=== PATIENT | female | born 1960 | race Two or more races ===

== ENCOUNTER → 2020-10-24 13:20 | Outpatient (BNVA) | payer MEDICARE, MEDICAID, SELFPAY | PROVIDERS: PCP Internal Medicine; Visit Provider Nurse Practitioner | DX: R10.13 Epigastric pain (principal); R19.7 Diarrhea, unspecified; K21.9 Gastro-esophageal reflux disease without esophagitis | CPT/HCPCS: Q3014 ==

== ENCOUNTER 2020-10-31 08:22 | Outpatient (REF) | payer OTHER, SELFPAY ==
[2020-10-31 09:36] LABS: MANUAL DIFF FLAG NO
[2020-10-31 09:47] LABS: Basophils Percent Auto 0.3 % (0-2); Eosinophils Absolute Auto 0.3 X10*3/uL (0.0-0.4); Eosinophils Percent Auto 4.4 % (0-4); Hematocrit 41.7 % (37-47); Hemoglobin 13.6 g/dl (12.0-16.0); Imm Gran Abs Auto 0.01 X10*3/uL (0.00-0.03); Imm Gran Pct Auto 0.2 % (0.0-0.4); Lymphocytes Absolute Auto 2.4 X10*3/uL (1.2-4.9); Lymphocytes Percent Auto 40.2 % (20-40); Mean Corpuscular HGB Conc 32.6 g/dl (31.0-35.0); Mean Corpuscular Hemoglobin 29.9 pg (27.0-33.0); Mean Corpuscular Volume 91.6 fL (80-98); Mean Platelet Volume 10.7 fL (9.4-12.3); Monocytes Absolute Auto 0.4 X10*3/uL (0.1-1.2); Monocytes Percent Auto 6.8 % (2-11); Neutrophils Absolute Auto 2.9 X10*3/uL (2.0-8.3); Neutrophils Percent Auto 48.1 % (45-73); Platelet Count 285 X10*3/uL (160-400); Red Blood Count 4.55 X10*6/uL (4.20-5.50); Red Cell Distribution Width 12.3 % (11.0-16.0); White Blood Count 5.9 X10*3/uL (4.8-10.8)
[2020-10-31 10:08] LABS: Alanine Aminotransferase 12 U/L (0-31); Albumin Level 4.3 g/dL (3.5-5.0); Alkaline Phosphatase 93 U/L (39-117); Anion Gap 14 (12-20); Aspartate Amino Transferase 16 U/L (5-31); Bilirubin Total 0.4 mg/dL (0.0-1.0); Blood Urea Nitrogen 12 mg/dL (9-16); C Reactive Protein 0.38 mg/dL (< or = 0.50); Calcium 9.8 mg/dL (8.4-10.2); Carbon Dioxide 29 mmol/L (22-29); Chloride 104 mmol/L (96-108); Cholesterol 269 mg/dL; Estimated Glomerular Filt Rate > 60; Glucose Random 97 mg/dL (60-115); HDL Cholesterol 69 mg/dL; LDL Cholesterol Calculated 154 mg/dl; Potassium 4.3 mmol/L (3.3-5.1); Sodium 143 mmol/L (135-145); Total Protein 7.9 g/dL (6.5-8.0); Triglycerides 233 mg/dL
[2020-10-31 10:32] LABS: Free T4 (Free Thyroxine) 1.07 ng/dL (0.71-1.85); Thyroid Stimulating Hormone 1.98 uIU/mL (0.32-4.0); Vitamin D 25-OH Total 32.5 ng/mL (>30)
[2020-10-31 10:55] LABS: Folate 13.7 ng/mL (> or = 4.0); Vitamin B12 580 pg/mL (200-900)
[2020-11-01 15:51] LABS: Transglutaminase Ab IgG 2 U/mL; Transglutaminase IgA 1 U/mL
[2020-11-01 17:06] LABS: Gliadin Deamidated IgA Ab 8 Units; Gliadin Deamidated IgG Ab 2 Units
== END 2020-10-31 08:23 | disposition home or self-care (01) ==
LOC: HO.LAB 08:22
PROVIDERS: Absent Provider Nurse Practitioner; PCP Internal Medicine; Visit Provider Internal Medicine
DX: R19.7 Diarrhea, unspecified (principal); F41.9 Anxiety disorder, unspecified; F32.9 Major depressive disorder, single episode, unspecified; E78.00 Pure hypercholesterolemia, unspecified
CPT/HCPCS: 36415; 80053; 80061; 82306; 82607; 82746; 83516; 84439; 84443; 85025; 86140

== ENCOUNTER 2020-11-21 08:12 | Outpatient (REF) | payer OTHER, SELFPAY ==
--- NOTE | ~2020-11-21 | US_ITS ---
EXAMINATION: US ABDOMEN COMPLETE CLINICAL INFORMATION: Epigastric pain. COMPARISON: None TECHNIQUE: Real-time imaging of the abdominal viscera. FINDINGS: PANCREAS: Normal. ABDOMINAL AORTA: The proximal, mid, and distal segments are normal in caliber. INFERIOR VENA CAVA: Visualized portions are normal. LIVER: The liver is normal in size. The liver contour is normal. The liver has increased echogenicity. No focal hepatic lesion. There is no intrahepatic biliary duct dilatation seen. GALLBLADDER: Normal. The gallbladder is physiologically distended without evidence of stones, sludge, polyps, wall thickening or pericholecystic fluid. COMMON BILE DUCT: Normal in caliber measuring 0.5 cm in diameter. RIGHT KIDNEY: Normal. No hydronephrosis. No renal calculi or focal parenchymal lesions. The kidney measures 1.1 cm in maximum dimension. LEFT KIDNEY: Normal. No hydronephrosis. No renal calculi or focal parenchymal lesions. The kidney measures 10.0 cm in maximum dimension. SPLEEN: Normal. The spleen measures 8.0 cm in maximum dimension. FREE FLUID: None. US/US abdomen complete IMPRESSION: Hepatic steatosis without any focal lesion. Unremarkable gallbladder and pancreas. The rest of the abdominal ultrasound is unremarkable.
== END 2020-11-21 08:13 | disposition home or self-care (01) ==
LOC: HO.US 08:12
PROVIDERS: Visit Provider Nurse Practitioner
DX: R10.13 Epigastric pain (principal)
CPT/HCPCS: 76700

== ENCOUNTER 2021-01-01 06:16 | Day surgery (SDC) | payer OTHER, SELFPAY ==
[2020-12-24 15:55] VITALS: BMI 43.4
--- NOTE | 2020-12-27 12:49 | P.CONAN_ITS ---
Documented by User: Kaycee Mary 12/27/20 12:50 HPI - Anesthesia Eval Consult details Narrative: 60yo F for Colonoscopy h/o polysub abuse PMFSH Active Problems Active Problems: All Active Problems (Updated 10/24/20 @ 14:23 by DOMENIC Kilpatrick) Epigastric pain (Acute) Diarrhea (Acute) Shoulder pain, bilateral (Acute) Colon cancer screening (Acute) Annual physical exam (Acute) Overweight (Acute) COPD (chronic obstructive pulmonary disease) (Acute) Anxiety and depression (Acute) GERD (gastroesophageal reflux disease) (Acute) Past Medical History Medical History (Updated 01/01/21 @ 07:33 by Vero Spears) Alcohol abuse Anemia Anxiety and depression Carpal tunnel syndrome Cocaine abuse COPD (chronic obstructive pulmonary disease) CVA (cerebral vascular accident) GERD (gastroesophageal reflux disease) Increased BMI Vitamin D deficiency Family History Family History Father No problems noted. Mother No problems noted. Paternal Grandfather No problems noted. Brother Colon cancer Surgical History Surgical History History of esophagogastroduodenoscopy (EGD) History of total abdominal hysterectomy and bilateral salpingo-oophorectomy Status post dilatation and curettage Social History Social History Alcohol intake: current Alcohol intake frequency: a few times a month Alcohol type: beer Are you DNR?: No Advance Directives: No Advance Directives Information Provided: No Advance Directives on File: No Meds Allergies Allergy/AdvReac Type Severity Reaction Status Date / Time pravastatin Allergy Unknown Unknown Verified 10/24/20 13:23 ENVIRONMENTAL Allergy Unknown ASTHMA Uncoded 04/19/20 15:30 Home Medications Medication Instructions Recorded Confirmed Last Taken Type clonazepam 1 mg tablet 1 mg PO DAILY 09/27/20 12/24/20 Unknown History escitalopram oxalate 10 mg tablet 10 mg PO DAILY 09/27/20 12/24/20 Unknown History trazodone 100 mg tablet 100 mg PO BEDTIME PRN 09/27/20 12/24/20 Unknown History bupropion HCl 100 mg PO DAILY 12/24/20 12/24/20 Unknown History Exam Exam Date and Time: December 27, 2020 1249 Height,Weight and Vital Signs: Height 5 ft 6 in Weight 122.016 kg Pertinent Lab Results Pertinent Lab Results: Laboratory Tests 10/31/20 10/31/20 08:45 08:45 WBC 5.9 Hgb 13.6 Hct 41.7 Plt Count 285 Sodium 143 Potassium 4.3 Chloride 104 Carbon Dioxide 29 BUN 12 Creatinine 0.83 Assessment and Plan Assessment Anesthesia Assessment: Chart Reviewed Documented by User: Vero Spears 01/01/21 07:36 [facility] Past Medical History Medical History (Updated 01/01/21 @ 07:33 by Vero Spears) Alcohol abuse Anemia Anxiety and depression Carpal tunnel syndrome Cocaine abuse COPD (chronic obstructive pulmonary disease) CVA (cerebral vascular accident) GERD (gastroesophageal reflux disease) Increased BMI Vitamin D deficiency Family History Family History Father No problems noted. Mother No problems noted. Paternal Grandfather No problems noted. Brother Colon cancer Family history of problems with anesthesia: No Surgical History Surgical History History of esophagogastroduodenoscopy (EGD) History of total abdominal hysterectomy and bilateral salpingo-oophorectomy Status post dilatation and curettage History of Problems with Anesthesia: No Social History Social History Alcohol intake: current Alcohol intake frequency: a few times a month Alcohol type: beer Are you DNR?: No Advance Directives: No Advance Directives Information Provided: No Advance Directives on File: No Meds Allergies Allergy/AdvReac Type Severity Reaction Status Date / Time pravastatin Allergy Unknown Unknown Verified 10/24/20 13:23 ENVIRONMENTAL Allergy Unknown ASTHMA Uncoded 04/19/20 15:30 Home Medications Medication Instructions Recorded Confirmed Last Taken Type clonazepam 1 mg tablet 1 mg PO DAILY 09/27/20 12/24/20 Unknown History escitalopram oxalate 10 mg tablet 10 mg PO DAILY 09/27/20 12/24/20 Unknown History trazodone 100 mg tablet 100 mg PO BEDTIME PRN 09/27/20 12/24/20 Unknown History bupropion HCl 100 mg PO DAILY 12/24/20 12/24/20 Unknown History Exam Height,Weight and Vital Signs: Vital Signs Temp Pulse Resp BP Pulse Ox 01/01/21 06:38 97.9 F 84 16 116/67 96 Pertinent Lab Results Pertinent Lab Results: Laboratory Results - last 24 hr 01/01/21 06:22 Urine Opiates Screen Not Detected Ur Barbiturates Screen Not Detected Ur Phencyclidine Scrn Not Detected Ur Amphetamines Screen Not Detected U Benzodiazepines Scrn POSITIVE H Urine Cocaine Screen Not Detected U Marijuana (THC) Screen Not Detected Airway Mallampati Class: III TM Dist: >3cm Neck ROM: Full Heart: RRR Lungs: CTAB Assessment and Plan Assessment Anesthesia Assessment: Anesthesia Plan Discussed and Chart Reviewed Final Anesthetic Review NPO: Yes ASA Class: III Final Preanesthetic Review: No Changes in Pt Med Stat, Meds/Allgs Chart Reviewed, Consent Obtained/Reviewed and Anes Risks/Benef Reviewed Patient Risk: Intermediate Procedure Risk: Low Assessment/Block/Sedation in SS: Assess/Block/Sedation-SS Anesthetic Plan Anesthetic Plan: MAC: Disposition: Standard PACU
[2021-01-01 06:38] VITALS: BP 116/67; PULSE 84; RESP 16; TEMP 36.6; O2SAT 96
[2021-01-01] MEDS: Lactated Ringers 1,000 ML 100 ML IVCONT (06:46)
--- NOTE | 2021-01-01 06:48 | PC.NURSE ---
Patient arrived at [facility] wearing two gold necklaces with pendants and two sets of earrings, gold hoops and kellie studs. All jewelry removed and placed in labeled patient bag.
[2021-01-01 07:01] LABS: Amphetamine Screen Urine Not Detected (Not Detect); Barbiturates, Urine Not Detected (Not Detect); Benzodiazepines Screen Urine POSITIVE (Not Detect); Cannabinoid Screen Urine Not Detected (Not Detect); Cocaine Screen Urine Not Detected (Not Detect); Opiate Screen Urine Not Detected (Not Detect); Phencyclidine Screen Urine Not Detected (Not Detect)
--- NOTE | 2021-01-01 07:10 | W.PM.OPN ---
Operative Note Operative Note Date of Service: 01/01/21 Narrative: Pre-op diagnosis: Cancer screening, postprandial diarrhea, abdominal pain Post-op diagnosis: other (Diverticulosis) Procedure: COLONOSCOPY TILL CECUM WITH BIOPSIES Consent: Indications for the procedure and potential complications of bleeding, perforation, reaction to medications and missed diagnosis were discussed with the patient and informed consent was obtained. Instrument: Olympus PCF H 190 L variable stiffness pediatric colonoscope Monitoring: Vital signs and clinical assessment, intermittent blood pressure monitoring, continuous EKG monitoring, Pulse oximetry and Carbon Dioxide monitoring were done throughout the procedure. Colon withdrawl time was 15 minutes. Procedure: The patient was placed in the left lateral decubitis position and pre-procedure medications were administered. After a digital rectal examination of the ano-rectum, the video colonoscope was inserted into the rectum and advanced through the colon to the cecum. The colonoscope was slowly withdrawn in a retrograde panoramic fashion and the colon mucosa was carefully examined including a retroflexed view of the rectum. Findings and interventions are described below. Procedure Difficulty: Without difficulty Findings: Terminal Ileum: Distal 6-7 cm was examined and appeared normal Cecum: Normal Ascending Colon: Normal Transverse Colon: Normal Descending Colon: Moderate diverticulosis Sigmoid Colon: Moderate diverticulosis Rectum: Normal Ano-rectum: Perianal skin tags Colon preparation: Excellent after some irrigation Impression and Post Procedure Diagnosis: Colonoscopy Findings: No polyps were detected. Random biopsies were obtained from the colon to check for microscopic colitis Moderate diverticulosis seen in the left colon Plan: Await pathology results Patient has an appointment on 01/21/21 in the GI Clinic with Helga Varghese NP. Repeat Colonoscopy interval based on path results - in 10 years if biopsies are normal. Above findings were reviewed with the patient and diverticulosis handout was given in the discharge area Surgeon: Vivienne Benson MD Anesthesia: MAC (Minerva Orozco CRNA) Was an Steward/Stewardess Chief Cargo Vessel used for this Procedure?: Yes Steward/Stewardess Chief Cargo Vessel: Mauri Pedro Estimated blood loss (mL): 0 Pathology: other (A- RANDOM COLON BXS R/O MICROSCOPIC COLITIS) Condition: stable Disposition: PACU
--- NOTE | 2021-01-01 07:10 | MHC.SHP ---
Pre-Procedural Eval Section A The patient is an INPATIENT: No The History & Physical has been completed within 30 days and I have reviewed it.: No Section B Chief Complaint: Screening Details of Present Illness: Colon cancer screening, abdominal pain, postprandial diarrhea Relevant Family History (Specify if Yes): No Relevant Social History: None Present Medications: see Short Stay Collaborative assessment Medical History: Significant History (Alcohol abuse Anemia Anxiety and depression Carpal tunnel syndrome Cocaine abuse COPD (chronic obstructive pulmonary disease) CVA (cerebral vascular accident) GERD (gastroesophageal reflux disease) Vitamin D deficiency) History of Previous Operations: Relevant previous surgery/procedure and date(s) (History of esophagogastroduodenoscopy (EGD) History of total abdominal hysterectomy and bilateral salpingo-oophorectomy Status post dilatation and curettage) Allergies: Allergies Allergy/AdvReac Type Severity Reaction Status Date / Time pravastatin Allergy Unknown Unknown Verified 10/24/20 13:23 ENVIRONMENTAL Allergy Unknown ASTHMA Uncoded 04/19/20 15:30 Review of Systems Sugical H&P ROS: Negative: Constitution, Cardiovascular and Respiratory and Yes, Specify: Gastrointestinal (abd pain and diarrhea) Exam Surgical H&P Exam: Normal: Heart, Normal: Lungs, Normal: Extremities and Normal: Abdomen Plan Diagnosis/Plan: Unchanged I have reviewed the history and physical and performed a pertinent physical examination on my patient. No changes have occurred unless specified.
[2021-01-01 08:06] VITALS: BP 90/59; PULSE 90; RESP 16; TEMP 36.2; O2SAT 96
[2021-01-01 08:21] VITALS: BP 100/60; PULSE 81; RESP 18; TEMP 36.2; O2SAT 96
--- NOTE | 2021-01-01 08:47 | PC.NURSE ---
Discharge instructions provided with assistance of [facility] Business Operations Specialist
== END 2021-01-01 09:05 | disposition home or self-care (01) ==
PROVIDERS: Nurse Practitioner; PCP Internal Medicine; Visit Provider Internal Medicine Gastroenterology
PROC: 0DJD8ZZ Inspection of Lower Intestinal Tract, Via Natural or Artificial Opening Endoscopic (ICD-10-PCS; CPT 45378; principal; 2021-01-01 07:30)
DX: Z12.11 Encounter for screening for malignant neoplasm of colon (principal); K21.9 Gastro-esophageal reflux disease without esophagitis; K57.30 Diverticulosis of large intestine without perforation or abscess without bleeding; D50.9 Iron deficiency anemia, unspecified; F14.10 Cocaine abuse, uncomplicated; F10.10 Alcohol abuse, uncomplicated; F32.9 Major depressive disorder, single episode, unspecified; J44.9 Chronic obstructive pulmonary disease, unspecified; E55.9 Vitamin D deficiency, unspecified; I69.998 Other sequelae following unspecified cerebrovascular disease; Z79.899 Other long term (current) drug therapy
CPT/HCPCS: 45380; 80307; 88305

== ENCOUNTER → 2021-01-21 09:51 | Outpatient (BNVA) | payer OTHER, SELFPAY | PROVIDERS: Visit Provider Nurse Practitioner | DX: R10.13 Epigastric pain (principal); Z12.11 Encounter for screening for malignant neoplasm of colon; K21.9 Gastro-esophageal reflux disease without esophagitis; R19.7 Diarrhea, unspecified; R63.8 Other symptoms and signs concerning food and fluid intake | CPT/HCPCS: Q3014 ==

== ENCOUNTER 2021-03-14 11:49 | Outpatient (REF) | payer OTHER, SELFPAY ==
--- NOTE | ~2021-03-14 | MM_ITS ---
EXAMINATION: MM SCREENING DIGITAL BREAST TOMOSYNTHESIS, BILATERAL CLINICAL INFORMATION: Screening. Asymptomatic. The lifetime risk of breast cancer based on the Tyrer-Cuzick Model is 6%. COMPARISON: Mammography: 09/01/2019, 07/22/2018, 10/08/2016 TECHNIQUE: Digital breast tomosynthesis is performed in both the craniocaudal and mediolateral oblique views along with computer-aided detection (CAD). Synthesized 2D images are generated from the tomosynthesis. FINDINGS: There are scattered areas of fibroglandular density (ACR BI-RADS breast composition Category b). There are no significant masses, abnormal calcifications, or other abnormalities. There is no developing density. There is a stable circumscribed nodule posterior upper outer right breast. Skin contours are smooth. No significant changes. MM/MM tomosynthesis screening BI IMPRESSION: No mammographic evidence of malignancy. ASSESSMENT: BI-RADS 2: Benign RECOMMENDATION: Routine annual mammography screening. This patient's information was entered into a reminder system with a target due date for their next mammogram.
== END 2021-03-14 11:50 | disposition home or self-care (01) ==
LOC: HO.MAMMO 11:49
PROVIDERS: Visit Provider Internal Medicine
DX: Z12.31 Encounter for screening mammogram for malignant neoplasm of breast (principal)
CPT/HCPCS: 77063; 77067

== ENCOUNTER → 2021-03-25 08:39 | Outpatient (BNVA) | payer OTHER, SELFPAY | PROVIDERS: Visit Provider Nurse Practitioner | DX: K21.9 Gastro-esophageal reflux disease without esophagitis (principal); R63.8 Other symptoms and signs concerning food and fluid intake; R19.7 Diarrhea, unspecified | CPT/HCPCS: Q3014 ==

== ENCOUNTER 2021-05-07 09:18 | Emergency (ER) | payer OTHER, SELFPAY ==
--- NOTE | ~2021-05-07 | CT_ITS ---
EXAMINATION: CT BRAIN, CT CERVICAL SPINE AND CT FACIAL BONES WITHOUT CONTRAST. CLINICAL INFORMATION: Headache with fall and LOC. COMPARISON: None TECHNIQUE: 5 mm thin axial and reformatted 2 mm thin sagittal coronal images of brain were obtained. Axial 3 mm thin and reformatted 2 minutes thin sagittal coronal images of cervical spine were obtained. Lastly axial 1.5 minutes thin and reformatted 1.5 minutes thin sagittal coronal images of facial bones were obtained. DLP [id number] FINDINGS: Brain: There is no acute intra-axial, extra-axial bleed,, collection or midline shift. There is no acute infarction evolution. There is no edema. The lateral ventricles are symmetrical in size and configuration and normal. The barros to white matter differentiation is maintained normal. Bone windows reveal no calvarial abnormality. There is no scalp soft tissue abnormality. Bilateral paranasal sinuses and mastoid air cells are well-aerated. Cervical spine: The vertebral heights, alignment and disc heights are normal. There is mild superior spurring at the C1-C2 alignment. The craniovertebral junction is normal. No visible acute fracture, dislocation or subluxation seen. The prevertebral and the paravertebral soft tissues are normal. Bilateral parotid and submandibular glands are symmetric and normal. There is widely patent. Bilateral shotty cervical lymph nodes are seen. The lung apices are clear. Facial bones: There is no maxillofacial, nasal or mandibular fracture. The paranasal sinuses are clear. The bony sinus medellin are intact. The cribriform plate and lamina papyracea are intact. There is mild deviation nasal septum to the right but symmetrical turbinates. The airway is widely patent. The bony orbits, optic globe and periorbital soft tissues are normal. The mandible is intact. Bilateral TM joints are symmetrical and normal. CT/CT cervical spine wo con IMPRESSION: No acute intracranial process seen. No evidence of fracture or dislocation cervical spine. Mild straightening of cervical lordosis likely spasm. Mild degenerative spurring C1-C2 alignment. No maxillofacial, nasal or mandibular fractures seen. Mild deviated nasal septum to the right.
[2021-05-07 10:08] VITALS: BP 141/79; PULSE 65; RESP 16; TEMP 36.8; O2SAT 100; BMI 27.2
--- NOTE | 2021-05-07 10:34 | ECG_ITS ---
Test Reason : DIZZ Blood Pressure : / mmHG Vent. Rate : 061 BPM Atrial Rate : 061 BPM P-R Int : 120 ms QRS Dur : 096 ms QT Int : 414 ms P-R-T Axes : 055 025 046 degrees QTc Int : 416 ms Normal sinus rhythm Normal ECG When compared with ECG of 21-JUN-2017 13:57, QT has shortened Referred By: Ara Khan Electronically Signed By:KEYA WELDON
--- NOTE | 2021-05-07 10:35 | ED_ITS ---
HPI - General Adult General Chief complaint: Syncope Stated complaint: neck pain Time Seen by Provider: 05/07/21 09:33 Source: patient Mode of arrival: ambulatory Limitations: no limitations History of Present Illness HPI narrative: Patient comes emergency room complaining of a recent fall that occurred 4 days ago. Patient states that she was sitting in the bed, she leaned over to grab a shoe and she fell forward. Patient states that she face planted, loss consciousness, patient was alone at home. Patient could not come before because she did have anyone to bring her to the emergency room. That after the fall, she has been having dizziness. Patient complaining of paresthesias radiating down her left arm, but this started approximately a month ago. Patient denies chest pain or shortness of breath Related Data Home Medications Medication Instructions Recorded Confirmed clonazepam 1 mg tablet (Klonopin) 1 mg PO DAILY 09/27/20 12/24/20 trazodone 100 mg tablet 100 mg PO BEDTIME PRN 09/27/20 12/24/20 Previous Rx's Medication Instructions Recorded omeprazole 20 mg capsule,delayed 20 mg PO DAILY 30 Days #30 cap 01/21/21 release meloxicam 7.5 mg tablet 7.5 mg PO DAILY #30 tab 03/27/21 Allergies Allergy/AdvReac Type Severity Reaction Status Date / Time pravastatin Allergy Unknown Unknown Verified 03/27/21 13:14 ENVIRONMENTAL Allergy Unknown ASTHMA Uncoded 04/19/20 15:30 Review of Systems Review of Systems: Constitutional : No Weight loss, No Fever, No Chills, No N ight Sweats, No Fatigue, No Malaise ENT/Mouth : No Hearing loss, No Ear Pain, No Nasal Congestion, No Sinus Pain, No Hoarseness, No sore throat, No Rhinorrhea, No Swallowing Difficulty Eyes: No Eye Pain, No Swelling, No Redness, No Foreign Body, No Discharge, No Vision Changes Cardiovascular : No Chest Pain, No SOB, No Dyspnea on Exertion, No Orthopnea, No Edema, No Palpitations Respiratory : No Cough, No Sputum, No Wheezing, No Smoke Exposure, No Dyspnea Gastrointestinal : No Nausea, No Vomiting, No Diarrhea, No Constipation, No abdominal Pain, No Hematochezia, No Melena Genitourinary : no irregular bleeding, No Dysuria, No Urinary Frequency, No Hematuria, No Urinary Incontinence, No Urgency, No Flank Pain, No Urinary Flow Changes, No Hesitancy Musculoskeletal : No joint pain, No Myalgias, No Joint Swelling Skin multiple ecchymoses due to fall Neuro : No Weakness, No Numbness, left arm intermittent paresthesias, 1 episode of loss of consciousness after falling Psych : No Anxiety/Panic, No Depression, No SI/HI/AH/VH, No Social Issues, Heme/Lymph: No Bruising, No Bleeding,No Lymphadenopathy Endocrine : No Polyuria, No Polydipsia, No Temperature Intolerance [facility] Past Medical History Medical History Alcohol abuse Anemia Anxiety and depression Carpal tunnel syndrome Cocaine abuse COPD (chronic obstructive pulmonary disease) CVA (cerebral vascular accident) Epigastric pain GERD (gastroesophageal reflux disease) Increased BMI Vitamin D deficiency Surgical History History of esophagogastroduodenoscopy (EGD) History of total abdominal hysterectomy and bilateral salpingo-oophorectomy Status post dilatation and curettage Family History Family History Father No problems noted. Mother No problems noted. Paternal Grandfather No problems noted. Brother Colon cancer Social History Social History Housing: Apartment Alcohol intake: current Alcohol intake frequency: a few times a month Alcohol type: beer Patient Tobacco Use Status: Never used Tobacco Tobacco use type: Cigarette e-Cigarette/Vaping Use: Never Used Second Hand Smoke Exposure: No Advance Directives: No Patient : No service: No Current occupational status: unemployed Physical Exam Vital Signs: Vital Signs: Last Vital Signs Temp 98.0 F 05/07/21 12:00 Pulse 60 05/07/21 12:00 Resp 17 05/07/21 12:00 BP 137/75 05/07/21 12:00 Pulse Ox 99 05/07/21 12:08 Body Mass Index 27.2 Const: Other: Appearance: Alert. Oriented X3. No acute distress. Eyes: Pupils equal, round and reactive to light. ENT: Pharynx normal. Neck: Normal inspection. Neck supple. No lymph nodes noted. No crepitus, pain to palpation on the left side of the neck, normal range of motion with flexion and extension CVS: Normal heart rate and rhythm. Pulses normal. Normal S1 and S2 Respiratory: No respiratory distress. Breath sounds normal. No Wheezing. No rales Abdomen: Soft and nontender. No rigidity. No distention. good BS x4 Skin: Skin warm and dry. Multiple ecchymoses to the right side of the face, healing, no lacerations Extremities: No lower extremity edema. Normal strength 5/5 in all extremities, No Lacerations. No Rash Neuro: Oriented X 3. No motor deficit. No sensory deficit. Moving all extermities. No slurred speech. Course Course Course Narrative: I discussed the CT scan with the patient, no acute fractures. I discussed with the patient that if she continues having paresthesias in her left arm which has been ongoing for about a month now, she will likely need an MRI of the cervical spine, which can be done through her primary care physician. Medical Decision Making Lab Data Result diagrams: 05/07/21 11:08 05/07/21 11:08 Labs: Lab Results 05/07/21 05/07/21 05/07/21 Range/Units 11:08 11:08 11:08 WBC 7.3 (4.8-10.8) X10*3/uL RBC 3.97 L (4.20-5.50) X10*6/uL Hgb 12.2 (12.0-16.0) g/dl Hct 36.0 L (37-47) % MCV 90.7 (80-98) fL MCH 30.7 (27.0-33.0) pg MCHC 33.9 (31.0-35.0) g/dl RDW 12.5 (11.0-16.0) % Plt Count 227 (160-400) X10*3/uL MPV 10.3 (9.4-12.3) fL Immature Gran % (Auto) 0.1 (0.0-0.4) % Neut % (Auto) 54.0 (45-73) % Lymph % (Auto) 37.7 (20-40) % Anderson % (Auto) 5.8 (2-11) % Eos % (Auto) 2.1 (0-4) % Baso % (Auto) 0.3 (0-2) % Lymph # (Auto) 2.7 (1.2-4.9) X10*3/uL Anderson # (Auto) 0.4 (0.1-1.2) X10*3/uL Eos # (Auto) 0.2 (0.0-0.4) X10*3/uL Baso # (Auto) 0.0 (0.0-0.2) X10*3/uL Abs Immat Gran (auto) 0.01 (0.00-0.03) X10*3/uL Absolute Neuts (auto) 3.9 (2.0-8.3) X10*3/uL Absolute Nucleated RBC 0.000 (0.0-0.012) X10*3/uL Nucleated RBC % (auto) 0.0 (0.0-0.2) /100WBC Sodium 140 (135-145) mmol/L Potassium 4.3 (3.3-5.1) mmol/L Chloride 105 (96-108) mmol/L Carbon Dioxide 28 (22-29) mmol/L Anion Gap 11 L (12-20) BUN 13 (9-16) mg/dL Creatinine 0.81 (0.5-1.4) mg/dL Estim Creat Clear Calc 74.3 Estimated GFR > 60 Random Glucose 102 (60-115) mg/dL Calcium 9.6 (8.4-10.2) mg/dL Troponin I High Sens < 3.5 (<3.5-17.0) ng/L Urine Color Urine Appearance Urine pH (5.0-8.0) Ur Specific [place] (1.005-1.025) Urine Protein (NEG-TRACE) MG/DL Urine Glucose (UA) (NEG) MG/DL Urine Ketones (NEG) MG/DL Urine Blood (NEG) Urine Nitrite (NEG) Ur Leukocyte Esterase (NEG) Urine Opiates Screen (Not Detect) Urine Fentanyl Screen (Not Detect) Ur Barbiturates Screen (Not Detect) Ur Phencyclidine Scrn (Not Detect) Ur Amphetamines Screen (Not Detect) U Benzodiazepines Scrn (Not Detect) Urine Cocaine Screen (Not Detect) U Marijuana (THC) Screen (Not Detect) Ethyl Alcohol mg/dL 05/07/21 05/07/21 05/07/21 Range/Units 11:08 11:08 11:08 WBC (4.8-10.8) X10*3/uL RBC (4.20-5.50) X10*6/uL Hgb (12.0-16.0) g/dl Hct (37-47) % MCV (80-98) fL MCH (27.0-33.0) pg MCHC (31.0-35.0) g/dl RDW (11.0-16.0) % Plt Count (160-400) X10*3/uL MPV (9.4-12.3) fL Immature Gran % (Auto) (0.0-0.4) % Neut % (Auto) (45-73) % Lymph % (Auto) (20-40) % Anderson % (Auto) (2-11) % Eos % (Auto) (0-4) % Baso % (Auto) (0-2) % Lymph # (Auto) (1.2-4.9) X10*3/uL Anderson # (Auto) (0.1-1.2) X10*3/uL Eos # (Auto) (0.0-0.4) X10*3/uL Baso # (Auto) (0.0-0.2) X10*3/uL Abs Immat Gran (auto) (0.00-0.03) X10*3/uL Absolute Neuts (auto) (2.0-8.3) X10*3/uL Absolute Nucleated RBC (0.0-0.012) X10*3/uL Nucleated RBC % (auto) (0.0-0.2) /100WBC Sodium (135-145) mmol/L Potassium (3.3-5.1) mmol/L Chloride (96-108) mmol/L Carbon Dioxide (22-29) mmol/L Anion Gap (12-20) BUN (9-16) mg/dL Creatinine (0.5-1.4) mg/dL Estim Creat Clear Calc Estimated GFR Random Glucose (60-115) mg/dL Calcium (8.4-10.2) mg/dL Troponin I High Sens (<3.5-17.0) ng/L Urine Color YELLOW Urine Appearance CLEAR Urine pH 6.0 (5.0-8.0) Ur Specific [place] >= 1.030 H (1.005-1.025) Urine Protein NEG (NEG-TRACE) MG/DL Urine Glucose (UA) NEG (NEG) MG/DL Urine Ketones NEG (NEG) MG/DL Urine Blood NEG (NEG) Urine Nitrite NEG (NEG) Ur Leukocyte Esterase NEG (NEG) Urine Opiates Screen Not Detected (Not Detect) Urine Fentanyl Screen POSITIVE H (Not Detect) Ur Barbiturates Screen Not Detected (Not Detect) Ur Phencyclidine Scrn Not Detected (Not Detect) Ur Amphetamines Screen Not Detected (Not Detect) U Benzodiazepines Scrn Not Detected (Not Detect) Urine Cocaine Screen POSITIVE H (Not Detect) U Marijuana (THC) Screen Not Detected (Not Detect) Ethyl Alcohol < 10 mg/dL Imaging Data CT scan of brain, cervical spine and facial bones: Radiologist's impression: FINDINGS: Brain: There is no acute intra-axial, extra-axial bleed,, collection or midline shift. There is no acute infarction evolution. There is no edema. The lateral ventricles are symmetrical in size and configuration and normal. The barros to white matter differentiation is maintained normal. Bone windows reveal no calvarial abnormality. There is no scalp soft tissue abnormality. Bilateral paranasal sinuses and mastoid air cells are well-aerated. Cervical spine: The vertebral heights, alignment and disc heights are normal. There is mild superior spurring at the C1-C2 alignment. The craniovertebral junction is normal. No visible acute fracture, dislocation or subluxation seen. The prevertebral and the paravertebral soft tissues are normal. Bilateral parotid and submandibular glands are symmetric and normal. There is widely patent. Bilateral shotty cervical lymph nodes are seen. The lung apices are clear. Facial bones: There is no maxillofacial, nasal or mandibular fracture. The paranasal sinuses are clear. The bony sinus medellin are intact. The cribriform plate and lamina papyracea are intact. There is mild deviation nasal septum to the right but symmetrical turbinates. The airway is widely patent. The bony orbits, optic globe and periorbital soft tissues are normal. The mandible is intact. Bilateral TM joints are symmetrical and normal. CT/CT head/brain wo con IMPRESSION: No acute intracranial process seen. ? No evidence of fracture or dislocation cervical spine. Mild straightening of cervical lordosis likely spasm. Mild degenerative spurring C1-C2 alignment. ? No maxillofacial, nasal or mandibular fractures seen. Mild deviated nasal septum to the right.? ECG Data Attestation: I personally reviewed and interpreted this ECG as follows: (Normal sinus, heart rate 61, no ST segment depression or elevation, no T-wave inversion, QTC 416) Discharge Plan Discharge Clinical Impression: Falls, Substance abuse, Contusion of face Patient Disposition: Home, Self-Care Instructions: Fall Prevention for Older Adults (ED), Polysubstance Abuse (ED) Additional Instructions: Please follow-up with your primary care physician tomorrow. If you have any worsening or new symptoms, please return to the emergency room or call 911 Prescriptions: No Action clonazepam [Klonopin] 1 mg tablet 1 mg PO DAILY RF: 0 trazodone 100 mg tablet 100 mg PO BEDTIME PRN (Reason: Insomnia) RF: 0 meloxicam 7.5 mg tablet 7.5 mg PO DAILY Qty: 30 RF: 2 omeprazole 20 mg capsule,delayed release(DR/EC) 20 mg PO DAILY 30 Days Qty: 30 RF: 6
[2021-05-07] MEDS: diazePAM 2 MG TABLET PO (11:06)
[2021-05-07 11:18] LABS: MANUAL DIFF FLAG NO
[2021-05-07 11:19] LABS: Basophils Percent Auto 0.3 % (0-2); Eosinophils Absolute Auto 0.2 X10*3/uL (0.0-0.4); Eosinophils Percent Auto 2.1 % (0-4); Hemoglobin 12.2 g/dl (12.0-16.0); Imm Gran Abs Auto 0.01 X10*3/uL (0.00-0.03); Imm Gran Pct Auto 0.1 % (0.0-0.4); Lymphocytes Absolute Auto 2.7 X10*3/uL (1.2-4.9); Lymphocytes Percent Auto 37.7 % (20-40); Mean Corpuscular HGB Conc 33.9 g/dl (31.0-35.0); Mean Corpuscular Hemoglobin 30.7 pg (27.0-33.0); Mean Corpuscular Volume 90.7 fL (80-98); Mean Platelet Volume 10.3 fL (9.4-12.3); Monocytes Absolute Auto 0.4 X10*3/uL (0.1-1.2); Monocytes Percent Auto 5.8 % (2-11); Neutrophils Absolute Auto 3.9 X10*3/uL (2.0-8.3); Platelet Count 227 X10*3/uL (160-400); Red Blood Count 3.97 X10*6/uL (4.20-5.50); Red Cell Distribution Width 12.5 % (11.0-16.0); White Blood Count 7.3 X10*3/uL (4.8-10.8)
[2021-05-07 11:22] LABS: Appearance Urine CLEAR; Color Urine YELLOW; Glucose Urine UA NEG (NEG); Leukocyte Esterase Urine NEG (NEG); Nitrite Urine NEG (NEG); Specific Gravity - Urine >= 1.030 (1.005-1.025); Urine Blood NEG (NEG); Urine Ketones NEG (NEG); Urine Protein NEG (NEG-TRACE)
[2021-05-07 11:32] LABS: Ethanol < 10 mg/dL
[2021-05-07 11:34] LABS: Anion Gap 11 (12-20); Blood Urea Nitrogen 13 mg/dL (9-16); Calcium 9.6 mg/dL (8.4-10.2); Carbon Dioxide 28 mmol/L (22-29); Chloride 105 mmol/L (96-108); Creatinine Clr Calc Pharmacy 74.3; Estimated Glomerular Filt Rate > 60; Glucose Random 102 mg/dL (60-115); Potassium 4.3 mmol/L (3.3-5.1); Sodium 140 mmol/L (135-145)
[2021-05-07 11:35] LABS: Amphetamine Screen Urine Not Detected (Not Detect); Barbiturates, Urine Not Detected (Not Detect); Benzodiazepines Screen Urine Not Detected (Not Detect); Cannabinoid Screen Urine Not Detected (Not Detect); Cocaine Screen Urine POSITIVE (Not Detect); Fentanyl, urine POSITIVE (Not Detect); Opiate Screen Urine Not Detected (Not Detect); Phencyclidine Screen Urine Not Detected (Not Detect)
[2021-05-07 11:40] LABS: Troponin-I High Sensitivity < 3.5 ng/L (<3.5-17.0)
[2021-05-07 12:00] VITALS: BP 137/75; PULSE 60; RESP 17; TEMP 36.7; O2SAT 99
--- NOTE | 2021-05-07 12:07 | PC.NURSE ---
patient sleeping, wakes to verbal stimulus, c/o 8/10 head and neck pain, vitals stable, daughter at bedside, will continue to monitor.
[2021-05-07 12:08] VITALS: O2SAT 99
== END 2021-05-07 12:48 | disposition home or self-care (01) ==
PROVIDERS: Emergency Provider Emergency Medicine; PCP Internal Medicine
DX: S00.83XA Contusion of other part of head, initial encounter (principal); R55 Syncope and collapse; M54.2 Cervicalgia; M79.602 Pain in left arm; F10.10 Alcohol abuse, uncomplicated; F17.210 Nicotine dependence, cigarettes, uncomplicated; Y90.0 Blood alcohol level of less than 20 mg/100 ml; W18.30XA Fall on same level, unspecified, initial encounter; Y93.9 Activity, unspecified; Y92.9 Unspecified place or not applicable; Y99.9 Unspecified external cause status; Z71.6 Tobacco abuse counseling; Z79.899 Other long term (current) drug therapy
CPT/HCPCS: 36415; 70450; 70486; 72125; 80048; 80307; 81003; 82077; 84484; 85025; 93005; 99284

== ENCOUNTER 2021-06-20 09:10 | Outpatient (REF) | payer OTHER, SELFPAY ==
[2021-06-20 10:07] LABS: Alanine Aminotransferase 15 U/L (0-31); Albumin Level 4.3 g/dL (3.5-5.0); Alkaline Phosphatase 91 U/L (39-117); Anion Gap 12 (12-20); Aspartate Amino Transferase 20 U/L (5-31); Bilirubin Total 0.3 mg/dL (0.0-1.0); Blood Urea Nitrogen 14 mg/dL (9-16); Calcium 9.8 mg/dL (8.4-10.2); Carbon Dioxide 29 mmol/L (22-29); Chloride 102 mmol/L (96-108); Cholesterol 267 mg/dL; Estimated Glomerular Filt Rate > 60; Glucose Random 131 mg/dL (60-115); HDL Cholesterol 76 mg/dL; LDL Cholesterol Calculated 151 mg/dl; Potassium 4.6 mmol/L (3.3-5.1); Sodium 138 mmol/L (135-145); Total Protein 7.8 g/dL (6.5-8.0); Triglycerides 203 mg/dL
== END 2021-06-20 09:11 | disposition home or self-care (01) ==
LOC: HO.LAB 09:10
PROVIDERS: PCP Internal Medicine; Visit Provider Internal Medicine
DX: E78.00 Pure hypercholesterolemia, unspecified (principal)
CPT/HCPCS: 36415; 80053; 80061

== ENCOUNTER → 2021-08-22 08:46 | Outpatient (BNVA) | payer OTHER, SELFPAY | PROVIDERS: PCP Internal Medicine; Referring Provider Internal Medicine; Visit Provider Nurse Practitioner | DX: Z12.11 Encounter for screening for malignant neoplasm of colon (principal); K21.9 Gastro-esophageal reflux disease without esophagitis; R19.7 Diarrhea, unspecified | CPT/HCPCS: 99212 ==

== ENCOUNTER 2021-09-11 09:47 | Outpatient (REF) | payer OTHER, SELFPAY ==
[2021-09-11 10:16] LABS: MANUAL DIFF FLAG NO
[2021-09-11 10:25] LABS: Basophils Percent Auto 0.4 % (0-2); Eosinophils Absolute Auto 0.2 X10*3/uL (0.0-0.4); Eosinophils Percent Auto 2.6 % (0-4); Hemoglobin 12.8 g/dl (12.0-16.0); Imm Gran Abs Auto 0.01 X10*3/uL (0.00-0.03); Imm Gran Pct Auto 0.1 % (0.0-0.4); Lymphocytes Absolute Auto 3.3 X10*3/uL (1.2-4.9); Mean Corpuscular HGB Conc 33.7 g/dl (31.0-35.0); Mean Corpuscular Hemoglobin 30.3 pg (27.0-33.0); Mean Corpuscular Volume 89.8 fL (80.0-98.0); Monocytes Absolute Auto 0.5 X10*3/uL (0.1-1.2); Monocytes Percent Auto 6.1 % (2-11); Neutrophils Absolute Auto 3.8 x10*3/uL (2.0-8.3); Neutrophils Percent Auto 48.8 % (45-73); Platelet Count 262 X10*3/uL (160-400); Red Blood Count 4.23 X10*6/uL (4.20-5.50); Red Cell Distribution Width 11.9 % (11.0-16.0); White Blood Count 7.8 X10*3/uL (4.8-10.8)
[2021-09-11 13:50] LABS: Alanine Aminotransferase 20 U/L (0-31); Albumin Level 4.1 g/dL (3.5-5.0); Alkaline Phosphatase 96 U/L (39-117); Anion Gap 10 (12-20); Aspartate Amino Transferase 24 U/L (5-31); Bilirubin Total 0.6 mg/dL (0.0-1.0); Carbon Dioxide 30 mmol/L (22-29); Cholesterol 220 mg/dL; Estimated Glomerular Filt Rate > 60; Glucose Random 94 mg/dL (60-115); HDL Cholesterol 79 mg/dL; LDL Cholesterol Calculated 98 mg/dl; Potassium 4.4 mmol/L (3.3-5.1); Sodium 141 mmol/L (135-145); Total Protein 7.6 g/dL (6.5-8.0); Triglycerides 219 mg/dL
[2021-09-11 15:06] LABS: Blood Urea Nitrogen 16 mg/dL (9-16); Chloride 105 mmol/L (96-108)
[2021-09-11 15:25] LABS: Estimated Average Glucose 114 mg/dL; Hemoglobin A1c % 5.6 %
== END 2021-09-11 09:48 | disposition home or self-care (01) ==
LOC: HO.LAB 09:47
PROVIDERS: PCP Internal Medicine; Visit Provider Internal Medicine
DX: E78.00 Pure hypercholesterolemia, unspecified (principal); R73.09 Other abnormal glucose
CPT/HCPCS: 36415; 80053; 80061; 83036; 85025

== ENCOUNTER 2021-10-09 09:38 | Outpatient (REF) | payer OTHER, SELFPAY ==
[2021-10-09 10:54] LABS: Anion Gap 15 (12-20); Blood Urea Nitrogen 20 mg/dL (9-16); Calcium 9.9 mg/dL (8.4-10.2); Carbon Dioxide 25 mmol/L (22-29); Chloride 102 mmol/L (96-108); Estimated Glomerular Filt Rate > 60; Glucose Random 96 mg/dL (60-115); Potassium 5.2 mmol/L (3.3-5.1); Sodium 137 mmol/L (135-145)
== END 2021-10-09 09:39 | disposition home or self-care (01) ==
LOC: HO.LAB 09:38
PROVIDERS: PCP Internal Medicine; Visit Provider Internal Medicine
DX: I10 Essential (primary) hypertension (principal)
CPT/HCPCS: 36415; 80048

== ENCOUNTER → 2022-02-18 10:02 | Outpatient (BNVA) | payer OTHER, SELFPAY | PROVIDERS: PCP Internal Medicine; Referring Provider Internal Medicine; Visit Provider Nurse Practitioner | DX: K21.9 Gastro-esophageal reflux disease without esophagitis (principal); R19.7 Diarrhea, unspecified | CPT/HCPCS: 99212 ==

== ENCOUNTER → 2022-04-01 09:56 | Outpatient (BNVA) | payer OTHER, SELFPAY | PROVIDERS: PCP Internal Medicine; Visit Provider Nurse Practitioner | DX: K21.9 Gastro-esophageal reflux disease without esophagitis (principal); R19.7 Diarrhea, unspecified; R10.9 Unspecified abdominal pain | CPT/HCPCS: 99212 ==

== ENCOUNTER 2022-07-04 13:33 | Outpatient (REF) | payer OTHER, SELFPAY ==
--- NOTE | ~2022-07-04 | MM_ITS ---
EXAMINATION: MM SCREENING DIGITAL BREAST TOMOSYNTHESIS, BILATERAL CLINICAL INFORMATION: Screening. Asymptomatic. The lifetime risk of breast cancer based on the Tyrer-Cuzick Model is 5%. COMPARISON: Mammography: 03/14/2021, 09/01/2019, 07/22/2018 TECHNIQUE: Digital breast tomosynthesis is performed in both the craniocaudal and mediolateral oblique views along with computer-aided detection (CAD). Synthesized 2D images are generated from the tomosynthesis. FINDINGS: There are scattered areas of fibroglandular density (ACR BI-RADS breast composition Category b). There are no significant masses, abnormal calcifications, or other abnormalities. Again, there is incidental smooth circumscribed nodule mid upper outer right breast, possibly intramammary node. No developing density. No architectural abnormality. The axilla and skin contours are unremarkable. MM/MM tomosynthesis screening BI IMPRESSION: No mammographic evidence of malignancy. ASSESSMENT: BI-RADS 2: Benign RECOMMENDATION: Routine annual mammography screening. This patient's information was entered into a reminder system with a target due date for their next mammogram.
== END 2022-07-04 13:34 | disposition home or self-care (01) ==
LOC: HO.MAMMO 13:33
PROVIDERS: PCP Internal Medicine; Visit Provider Internal Medicine
DX: Z12.31 Encounter for screening mammogram for malignant neoplasm of breast (principal)
CPT/HCPCS: 77063; 77067

== ENCOUNTER → 2022-09-24 10:00 | Outpatient (BNVA) | payer OTHER, SELFPAY | PROVIDERS: PCP Internal Medicine; Visit Provider Nurse Practitioner | DX: R19.7 Diarrhea, unspecified (principal); K21.9 Gastro-esophageal reflux disease without esophagitis; R10.13 Epigastric pain | CPT/HCPCS: 99212 ==

== ENCOUNTER 2022-10-17 09:30 | Outpatient (REF) | payer OTHER, SELFPAY ==
--- NOTE | ~2022-10-17 | XR_ITS ---
EXAMINATION: XR CHEST CLINICAL INFORMATION: Reason for Exam R04.2 - Hemoptysis COMPARISON: Chest radiograph 06/21/2017 TECHNIQUE: 2 views of the chest FINDINGS: Clear lungs. No pneumothorax or pleural effusion. Normal cardiomediastinal silhouette. XR/XR chest 2V IMPRESSION: * Clear lungs.
[2022-10-17 10:47] LABS: Basophils Percent Auto 0.4 % (0-2); Eosinophils Absolute Auto 0.2 X10*3/uL (0.0-0.4); Eosinophils Percent Auto 2.4 % (0-4); Hemoglobin 12.7 g/dl (12.0-16.0); Imm Gran Abs Auto 0.02 X10*3/uL (0.00-0.03); Imm Gran Pct Auto 0.3 % (0.0-0.4); Lymphocytes Absolute Auto 4.2 X10*3/uL (1.2-4.9); Lymphocytes Percent Auto 53.5 % (20-40); MANUAL DIFF FLAG SCAN; Mean Corpuscular HGB Conc 33.4 g/dl (31.0-35.0); Mean Corpuscular Hemoglobin 29.9 pg (27.0-33.0); Mean Corpuscular Volume 89.4 fL (80.0-98.0); Mean Platelet Volume 10.4 fL (9.4-12.3); Monocytes Absolute Auto 0.6 X10*3/uL (0.1-1.2); Monocytes Percent Auto 7.1 % (2-11); Neutrophils Absolute Auto 2.8 x10*3/uL (2.0-8.3); Neutrophils Percent Auto 36.3 % (45-73); Platelet Count 286 X10*3/uL (160-400); Red Blood Count 4.25 X10*6/uL (4.20-5.50); Red Cell Distribution Width 12.4 % (11.0-16.0); SCAN SMEAR FLAG 1; White Blood Count 7.8 X10*3/uL (4.8-10.8)
[2022-10-17 11:13] LABS: Alanine Aminotransferase 27 U/L (0-31); Albumin Level 4.3 g/dL (3.5-5.0); Alkaline Phosphatase 104 U/L (39-117); Anion Gap 14 (12-20); Aspartate Amino Transferase 29 U/L (5-31); Bilirubin Total 0.3 mg/dL (0.0-1.0); Blood Urea Nitrogen 24 mg/dL (9-16); Calcium 9.4 mg/dL (8.4-10.2); Carbon Dioxide 26 mmol/L (22-29); Chloride 103 mmol/L (96-108); Cholesterol 234 mg/dL; Estimated Glomerular Filt Rate 41; Glucose Random 100 mg/dL (60-115); HDL Cholesterol 68 mg/dL; LDL Cholesterol Calculated 124 mg/dl; Potassium 4.4 mmol/L (3.3-5.1); Sodium 139 mmol/L (135-145); Triglycerides 210 mg/dL
[2022-10-17 11:17] LABS: SLIDE REVIEW VERIFIED
[2022-10-17 11:40] LABS: Folate 16.1 ng/mL (> or = 4.0); Thyroid Stimulating Hormone 0.94 uIU/mL (0.32-4.0); Vitamin B12 759 pg/mL (200-900); Vitamin D 25-OH Total 45.6 ng/mL (>30)
== END 2022-10-17 09:31 | disposition home or self-care (01) ==
LOC: HO.LAB 09:30
PROVIDERS: PCP Internal Medicine; Visit Provider Internal Medicine
DX: R04.2 Hemoptysis (principal); E78.00 Pure hypercholesterolemia, unspecified; E55.9 Vitamin D deficiency, unspecified
CPT/HCPCS: 36415; 71046; 80053; 80061; 82306; 82607; 82746; 84439; 84443; 85025

== ENCOUNTER → 2023-01-15 10:39 | Outpatient (BNVA) | payer OTHER, SELFPAY | PROVIDERS: Visit Provider Nurse Practitioner | DX: K58.9 Irritable bowel syndrome, unspecified (principal); K21.9 Gastro-esophageal reflux disease without esophagitis; R19.7 Diarrhea, unspecified | CPT/HCPCS: 99212 ==

== ENCOUNTER 2023-04-24 09:04 | Outpatient (REF) | payer OTHER, SELFPAY ==
[2023-04-24 09:28] LABS: MANUAL DIFF FLAG NO
[2023-04-24 10:27] LABS: Basophils Percent Auto 0.4 % (0-2); Eosinophils Absolute Auto 0.2 X10*3/uL (0.0-0.4); Eosinophils Percent Auto 2.8 % (0-4); Hematocrit 36.7 % (37.0-47.0); Hemoglobin 12.4 g/dl (12.0-16.0); Imm Gran Abs Auto 0.02 X10*3/uL (0.00-0.03); Imm Gran Pct Auto 0.3 % (0.0-0.4); Lymphocytes Percent Auto 39.8 % (20-40); Mean Corpuscular HGB Conc 33.8 g/dl (31.0-35.0); Mean Corpuscular Hemoglobin 30.7 pg (27.0-33.0); Mean Corpuscular Volume 90.8 fL (80.0-98.0); Mean Platelet Volume 10.3 fL (9.4-12.3); Monocytes Absolute Auto 0.6 X10*3/uL (0.1-1.2); Monocytes Percent Auto 7.2 % (2-11); Neutrophils Absolute Auto 3.8 x10*3/uL (2.0-8.3); Neutrophils Percent Auto 49.5 % (45-73); Platelet Count 296 X10*3/uL (160-400); Red Blood Count 4.04 X10*6/uL (4.20-5.50); Red Cell Distribution Width 12.3 % (11.0-16.0); White Blood Count 7.6 X10*3/uL (4.8-10.8)
[2023-04-24 11:11] LABS: Alanine Aminotransferase 18 U/L (0-31); Albumin Level 4.3 g/dL (3.5-5.0); Alkaline Phosphatase 90 U/L (39-117); Anion Gap 12 (12-20); Aspartate Amino Transferase 22 U/L (5-31); Bilirubin Total 0.3 mg/dL (0.0-1.0); Blood Urea Nitrogen 18 mg/dL (9-16); Calcium 9.7 mg/dL (8.4-10.2); Carbon Dioxide 27 mmol/L (22-29); Chloride 104 mmol/L (96-108); Estimated Glomerular Filt Rate > 60; Glucose Random 110 mg/dL (60-115); Potassium 3.9 mmol/L (3.3-5.1); Sodium 139 mmol/L (135-145); Total Protein 8.4 g/dL (6.5-8.0)
== END 2023-04-24 09:05 | disposition home or self-care (01) ==
LOC: HO.LAB 09:04
PROVIDERS: PCP Internal Medicine; Visit Provider Internal Medicine
DX: N28.9 Disorder of kidney and ureter, unspecified (principal)
CPT/HCPCS: 36415; 80053; 85025

== ENCOUNTER → 2023-04-29 12:26 | Outpatient (BNVA) | payer OTHER, SELFPAY | PROVIDERS: PCP Internal Medicine; Visit Provider Nurse Practitioner ==

== ENCOUNTER 2023-04-29 12:59 | Outpatient (AMB) | payer OTHER, SELFPAY ==
[2023-04-29 13:03] VITALS: BP 112/68; PULSE 74; O2SAT 98; BMI 29.0
--- NOTE | 2023-04-29 13:03 | A.OFFPC_ITS ---
Vital Signs 04/29/23 13:03 Height 5 ft 7 in Weight 185 lb BMI 29.0 BP 112/68 Blood Pressure Location Lt brachial Position Sitting Pulse 74 Pulse Source Pulse Oximeter Pulse Oximetry (%) 98 Oxygen Delivery Method Room Air Intake Visit Reasons: HTN, renal insuf, cough Allergies No Known Drug Allergies Allergy (Unknown, Verified 04/29/23 13:03) none ENVIRONMENTAL Allergy (Unknown, Uncoded 04/29/23 13:03) ASTHMA Medication List - Last Reconciled 04/29/23 by Hilda Burroughs MD albuterol sulfate 90 mcg/actuation 2 inhalations PO Q6H PRN blood pressure monitor (Blood Pressure Kit) As directed cetirizine 10 mg PO DAILY PRN clonazepam (Klonopin) 1 mg PO DAILY dicyclomine 20 mg PO TID fluticasone propion-salmeterol 250-50 mcg/dose (Advair Diskus) 1 inh inhalation BID lisinopril-hydrochlorothiazide 10-12.5 mg 1 tab PO DAILY omeprazole 20 mg PO DAILY simvastatin 5 mg PO BEDTIME trazodone 100 mg PO BEDTIME PRN Tobacco use date assessed: 01/13/23 Fall risk assessment: No Falls in past year Last assessed Fall Risk: 04/29/23 Dental Screening Dental Screen Date: 04/29/23 Did you have a dental visit in the last 12 months?: Yes Did you have a dental problem in the last 6 months where you did not have access to dental care?: No Was dental information given to patient?: Patient has dentist HPI HTN, renal insuf, cough HPI Details 63-year-old overweight female with hyper tension generalized anxiety disorder hypercholesterolemia COPD GERD and renal insufficiency last seen in January 2023. Patient is here for follow-up. Mammogram is due in July. Patient follows up with Gastroenterology for the irritable bowel syndrome, diarrhea type GERD. Placed on dicyclomine PFSH Medical History Alcohol abuse Anemia Annual physical exam Annual physical exam Blood sugar increased Carpal tunnel syndrome Cocaine abuse Colon cancer screening COPD (chronic obstructive pulmonary disease) CVA (cerebral vascular accident) Epigastric pain GERD (gastroesophageal reflux disease) Neck pain Overweight (BMI 25.0-29.9) Shingles Vitamin D deficiency Surgical History H/O colonoscopy History of esophagogastroduodenoscopy (EGD) Status post dilatation and curettage History of total abdominal hysterectomy and bilateral salpingo-oophorectomy Family History Father Heart attack Mother No problems noted. Paternal Grandfather No problems noted. Brother Colon cancer Heart attack Other FHx: mental illness Substance abuse Social History Housing: Apartment Alcohol intake: current Alcohol intake frequency: a few times a month Alcohol type: beer Patient Tobacco Use Status: Never used Tobacco Tobacco use type: Cigarette e-Cigarette/Vaping Use: Never Used Second Hand Smoke Exposure: No service: No Current occupational status: unemployed Cognitive needs: No Hearing needs: No Vision needs: Yes Questionnaire PHQ-9 Over the last 2 weeks, how often have you been bothered by any of the following problems? 1. Little interest or pleasure in doing things: several days 2. Feeling down, depressed, or hopeless: several days 3. Trouble falling or staying asleep, or sleeping too much: not at all 4. Feeling tired or having little energy: not at all 5. Poor appetite or overeating: not at all 6. Feeling bad about yourself - or that you are a failure or have let yourself or your family down: not at all 7. Trouble concentrating on things, such as reading the newspaper or watching television: not at all 8. Moving or speaking so slowly that other people could have noticed. Or the opposite - being so fidgety or restless that you have been moving around a lot more than usual: not at all 9. Thoughts that you would be better off or of hurting yourself in some way: not at all Total score: 2 Depression Screening Interpretation: Negative Source: Developed by Drs. Joseph Bach, Candace oRgers, Kristofer Naqvi and colleagues, with an educational steven from [employer]. Thrive Questionnaire Date Thrive assessed: 10/09/22 AUDIT C Alcohol Use Questionnaire (AUDIT-C) 1. How often do you have a drink containing alcohol?: Never Total Score: 0 MARIA EUGENIA-7 AMB Questionnaire MARIA EUGENIA-7 Date MARIA EUGENIA - 7 assessed: 10/09/22 Source: Developed by Drs. Joseph Bach, Candace Rogers, Kristofer Naqvi and colleagues, with an educational steven from [employer]. Physical exam (Primary Care) Vital Signs: Last Vital Signs Pulse 74 04/29/23 13:03 BP 112/68 04/29/23 13:03 Pulse Ox 98 04/29/23 13:03 Oxygen Delivery Method Room Air 04/29/23 13:03 BMI result Body Mass Index 29.0 Tobacco/Smoking Status: Tobacco use Status Tobacco use date assessed 01/13/23 04/29/23 13:06 Patient Tobacco Use Status Never used Tobacco 04/29/23 13:06 Tobacco use type Cigarette 04/29/23 13:06 e-Cigarette/Vaping Use Never Used 04/29/23 13:06 PHQ-9: PHQ-9 Score PHQ-9: Total score 2 04/29/23 13:06 Depression Screening Interpretation: Negative Thrive Assessment: Date of Thrive Assessment Date Thrive assessed 10/09/22 04/29/23 13:06 Const General: alert; No acute distress Eyes Conjunctivae: conjunctivae normal Resp Auscultation: clear to auscultation bilaterally Cardio Rate: regular rate Rhythm: regular rhythm GI Inspection: Yes normal to inspection Extrem General: Yes normal to inspection and No edema Assessment and Plan Assessment & Plan (1) Renal insufficiency: Code(s): N28.9 - Disorder of kidney and ureter, unspecified Plan: Resolved keep well hydrated avoid NSAID (2) Overweight (BMI 25.0-29.9): Code(s): E66.3 - Overweight Plan: Continue with diet and exercise (3) Hypertension: Code(s): I10 - Essential (primary) hypertension Plan: Continue with blood pressure medication. Decrease salt intake and exercise patient takes lisinopril hydrochlorothiazide 1012.5 once a day (4) Recurrent major depression: Comment: [facility] Counseling Code(s): F33.9 - Major depressive disorder, recurrent, unspecified Plan: Continue with counseling and therapy. Patient takes trazodone clonazepam (5) Hypercholesterolemia: Code(s): E78.00 - Pure hypercholesterolemia, unspecified Plan: Avoid fried foods, chicken skin, eggs, butter margarine, pastries and meat. Be it pork or beef they have a lot of cholesterol LDL goal of less than 130 and triglyceride of less than 150. Patient is on simvastatin 5 mg at bedtime (6) COPD (chronic obstructive pulmonary disease): Code(s): J44.9 - Chronic obstructive pulmonary disease, unspecified Plan: Stable continue with inhaler as needed (7) GERD (gastroesophageal reflux disease): Code(s): K21.9 - Gastro-esophageal reflux disease without esophagitis Plan: Avoid the foods that causes that usually spicy foods, tomato products, juices, coffee, soda and foods that your sensitive to. After eating do not lie down, allow 3-4 hours before in lie down. And keep the head of bed above 30 degrees to avoid the acid from going up. (8) Irritable bowel syndrome: Code(s): K58.9 - Irritable bowel syndrome without diarrhea Plan: Patient follows up with Gastroenterology has been prescribed dicyclomine Orders: Orders Thyroid Stimulating Hormone 6 Months E78.00 - Pure hypercholesterolemia, unspecified Vitamin D 25-OH Total 6 Months E78.00 - Pure hypercholesterolemia, unspecified Complete Blood Count Auto Diff 6 Months E78.00 - Pure hypercholesterolemia, unspecified Comprehensive Met. Panel 6 Months E78.00 - Pure hypercholesterolemia, unspecified Free T4 (Free Thyroxine) 6 Months E78.00 - Pure hypercholesterolemia, unspecified Lipid Panel 6 Months E78.00 - Pure hypercholesterolemia, unspecified Vitamin B12 and Folate 6 Months E78.00 - Pure hypercholesterolemia, unspecified Medications: New fluticasone propion-salmeterol 250-50 mcg/dose (Advair Diskus) 1 inh inhalation BID 60 ea 4RF J44.9 - Chronic obstructive pulmonary disease, unspecified Refilled albuterol sulfate 90 mcg/actuation 2 inhalations PO Q6H PRN 8.5 ea 3RF shortness of breath or wheezing J44.9 - Chronic obstructive pulmonary disease, unspecified, R04.2 - Hemoptysis Coding Level of Care Code Est Pt Level 2 (89904) Diagnoses Renal insufficiency N28.9 Overweight (BMI 25.0-29.9) E66.3 Hypertension I10 Recurrent major depression F33.9 Hypercholesterolemia E78.00 COPD (chronic obstructive pulmonary disease) J44.9 GERD (gastroesophageal reflux disease) K21.9 Irritable bowel syndrome K58.9 Additional Codes PHQ-9 - 78911 - PHQ-9 Billing: ([id number])
== END 2023-04-29 13:56 | disposition home or self-care (01) ==
PROVIDERS: PCP Internal Medicine; Visit Provider Internal Medicine
DX: N28.9 Disorder of kidney and ureter, unspecified (principal); F33.9 Major depressive disorder, recurrent, unspecified; J44.9 Chronic obstructive pulmonary disease, unspecified; E66.3 Overweight; I10 Essential (primary) hypertension; E78.00 Pure hypercholesterolemia, unspecified; K21.9 Gastro-esophageal reflux disease without esophagitis; K58.9 Irritable bowel syndrome, unspecified
CPT/HCPCS: 99212

== ENCOUNTER 2023-05-04 09:16 | Outpatient (REF) | payer OTHER, SELFPAY | END 2023-05-04 09:17 | disposition home or self-care (01) | LOC: HO.RESP 09:16 | PROVIDERS: PCP Internal Medicine; Visit Provider Internal Medicine | DX: Z13.89 Encounter for screening for other disorder (principal) ==

== ENCOUNTER 2023-05-28 12:21 | Outpatient (AMB) | payer OTHER, SELFPAY ==
[2023-05-28 12:28] VITALS: BP 113/73; PULSE 83; BMI 29.3
--- NOTE | 2023-05-28 12:28 | A.OFFVIS_ITS ---
Intake Vital Signs 05/28/23 12:28 Height 5 ft 7 in Weight 187 lb 6.287 oz BMI 29.3 BP 113/73 Blood Pressure Location Lt brachial Position Sitting Pulse 83 Intake Visit Reasons: follow up ibs Intake Note: Patient presents to in office visit in follow up of IBS. CC: Patient reports a lot of heartburn and occasional abdominal pain and diarrhea. Denies other GI symptoms. Wood Patternmaker Required: Yes Wood Patternmaker Name: daughter Accompanied by: Daughter Allergies No Known Drug Allergies Allergy (Unknown, Verified 04/29/23 13:03) none ENVIRONMENTAL Allergy (Unknown, Uncoded 04/29/23 13:03) ASTHMA PFSH Medical History Overweight (BMI 25.0-29.9) Shingles Annual physical exam Neck pain Blood sugar increased Epigastric pain Colon cancer screening Annual physical exam CVA (cerebral vascular accident) Carpal tunnel syndrome Alcohol abuse Vitamin D deficiency COPD (chronic obstructive pulmonary disease) Cocaine abuse GERD (gastroesophageal reflux disease) Anemia Surgical History H/O colonoscopy History of esophagogastroduodenoscopy (EGD) Status post dilatation and curettage History of total abdominal hysterectomy and bilateral salpingo-oophorectomy Family History Father Heart attack Mother No problems noted. Paternal Grandfather No problems noted. Brother Colon cancer Heart attack Other FHx: mental illness Substance abuse Social History Housing: Apartment Alcohol intake: current Alcohol intake frequency: a few times a month Alcohol type: beer Patient Tobacco Use Status: Never used Tobacco Tobacco use type: Cigarette e-Cigarette/Vaping Use: Never Used Second Hand Smoke Exposure: No service: No Current occupational status: unemployed Cognitive needs: No Hearing needs: No Vision needs: Yes Coding
--- NOTE | 2023-05-28 12:28 | MHC.OFFVIS ---
Intake Vital Signs 05/28/23 12:28 Height 5 ft 7 in Weight 187 lb 6.287 oz BMI 29.3 BP 113/73 Blood Pressure Location Lt brachial Position Sitting Pulse 83 Intake Visit Reasons: follow up ibs Allergies No Known Drug Allergies Allergy (Unknown, Verified 04/29/23 13:03) none ENVIRONMENTAL Allergy (Unknown, Uncoded 04/29/23 13:03) ASTHMA HPI follow up ibs HPI Details Assessment & Plan (1) Irritable bowel syndrome: ?Code(s): K58.9 - Irritable bowel syndrome without diarrhea ?Plan: ANGUILLAN #Dtr translates per pt request She stopped the carafate r/t [facility].? She has been having pain in the upper stomach the where she feels like her upper abdomen is ?popping out? and she has a knot in the left upper quadrant.? This is mildly relieved after moving her bowels which usually occurs in the morning.? She will tend to have hard stools initially followed by some episodes of diarrhea but she also sometimes has the feeling of incomplete evacuation. This sounds like spasm so will try putting her on dicyclomine 20 mg 3 times a day and see if this evened out her stooling including the diarrhea. She continues her omeprazole 20 mg a day with good control of her GERD. ROV 3 weeks. DON'T HAVE DTR TRANSLATE NEXT TIME (2) GERD (gastroesophageal reflux disease): ?Code(s): K21.9 - Gastro-esophageal reflux disease without esophagitis (3) Diarrhea: ?Code(s): R19.7 - Diarrhea, unspecified ? ? ? Medications: New dicyclomine 20 mg? PO .tidac 3 0 days 90 tabs 3RF K58.9 - Irritable bowel syndrome wit hout diarrhea ? Discontinued sucralfate ?? Disc ontinued Reason:? Doctor's Order 3 grams (3 x 1 gra m) PO DAILY 270 ta bs 1RF R19.7 - Diarrhea, unspecified TODAY'S VISIT ANGUILLAN #Alissa Live She is here with her daughter who does not contribute to the history currently. She finds that greasy foods set off her diarrhea. She will get a Strong pain in the periumbilical area, that is then relieved with BM. She she still very concerned about the pain. For now I will tell her to avoid greasy foods but I think it would be good to investigate her gallbladder again with an ultrasound and a HIDA scan. She had ultrasound 2020 that was negative for gallstones. She is having quite a lot of GERD with acid brash particularly at night. She was on omeprazole 20 mg and I think I kept the dose low and avoided famotidine because she has had a history of renal insufficiency. Currently her GFR is normal but this was not so couple of months ago. I think I will try changing her to lansoprazole 30 mg which is better for renal patients and for now advised her to take Tums at bedtime. I am also adding a barium swallow since she has reflux to see if there is a hiatal hernia that is particularly large or perhaps a paraesophageal hernia contributing to her symptoms. She does feel that the dicyclomine has been helpful for her generalized cramping and she has had no adverse effects. She is agreeable to increasing the 20 mg dose to 4 times a day to see if this also helps with breakthrough diarrhea. Depending on her response and the tests above we may consider going to something like imipramine. She has failed Carafate because it constipated her. However, her report about the Carafate is inconsistent because she also says it did not work. ROV 4 weeks PFS Medical History Overweight (BMI 25.0-29.9) Shingles Annual physical exam Neck pain Blood sugar increased Epigastric pain Colon cancer screening Annual physical exam CVA (cerebral vascular accident) Carpal tunnel syndrome Alcohol abuse Vitamin D deficiency COPD (chronic obstructive pulmonary disease) Cocaine abuse GERD (gastroesophageal reflux disease) Anemia Surgical History H/O colonoscopy History of esophagogastroduodenoscopy (EGD) Status post dilatation and curettage History of total abdominal hysterectomy and bilateral salpingo-oophorectomy Family History Father Heart attack Mother No problems noted. Paternal Grandfather No problems noted. Brother Colon cancer Heart attack Other FHx: mental illness Substance abuse Social History (Reviewed 05/28/23 @ 12:32 by Kaitlynn Beebe [facility]) Housing: Apartment Alcohol intake: current Alcohol intake frequency: a few times a month Alcohol type: beer Patient Tobacco Use Status: Never used Tobacco Tobacco use type: Cigarette e-Cigarette/Vaping Use: Never Used Second Hand Smoke Exposure: No service: No Current occupational status: unemployed Cognitive needs: No Hearing needs: No Vision needs: Yes Review of Systems Const Denies fatigue, Denies fever(s), Denies night sweats, Denies poor appetite and Denies weight loss ENT Reports Normal hearing present, Denies dental pain, Denies dysphagia, Denies hearing loss, Denies mouth pain, Denies odynophagia, Denies throat swelling, Denies tongue swelling and Reports other (Dentition adequate) Card Reports no additional complaints Resp Reports no additional complaints GI Reports abdominal pain, Denies melena, Reports bloating, Denies hematochezia, Denies constipation, Reports GI cramping, Denies dysphagia, Denies excessive flatus, Denies early satiety, Reports heartburn, Reports diarrhea, Denies nausea, Denies odynophagia, Denies vomiting and Denies hematemesis Skin/Breast Denies pruritus, Denies lesions, Denies rash and Denies jaundice Neuro Reports Normal hearing present and Denies Abnormal speech present Endo Denies fatigue Aller/Immun Denies throat swelling and Denies tongue swelling Physical Exam Vital Signs: Last Vital Signs Pulse 83 05/28/23 12:28 BP 113/73 05/28/23 12:28 BMI result Body Mass Index 29.3 Const General: cooperative, no acute distress, well developed and well groomed Nutritional Appearance: well nourished and overweight Orientation/consciousness: oriented to person, oriented to place and oriented to time Limitations: language barrier and other limitations (Limited Education) HEENT Head: Yes normocephalic and Yes atraumatic Eyes General: appearance normal, both eyes and all related structures Pupils: Equal, round and reactive pupils present Neck Neck: Yes normal visual inspection and Yes no lymphadenopathy Thyroid: Thyroid normal Resp Effort & Inspection: normal respiratory effort and able to speak in complete sentences Auscultation: clear to auscultation bilaterally Cardio Rate: regular rate Rhythm: regular rhythm Heart sounds: Normal, physiologic split S2 sound present Peripheral pulses: radial pulses present and posterior tibial pulses present GI Inspection: No distended, No Abdominal panniculus present and Yes obesity Palpation (GI): Soft to palpation, nontender, no guarding, not rigid and No hepatosplenomegaly present Percussion: Yes normal to percussion Auscultation: normal bowel sounds Rectal Exam - Female: deferred Skin General skin exam: no rashes or lesions noted, turgor normal, skin not dry, no jaundice, No spider nevi and no striae Rashes: no rashes Nails: normal Neuro General: oriented to person, oriented to place and oriented to time Cranial nerves: Yes Equal, round and reactive pupils present and Yes Normal hearing present Speech: No Abnormal speech present Extrem General: Yes normal to inspection, No clubbing, No cyanosis and No edema Psych Appearance: grossly normal and well kempt Mental Status: mental status grossly normal Speech and movement: Normal speech and movement present Affect: normal affect Attitude: cooperative Thought process: not confabulating and Impoverished thought process present Thought content: Normal thought content present Insight: Limited insight present (Psych) Judgement: Limited judgement present (Psych) Assessment & Plan Assessment & Plan (1) Periumbilical pain: Code(s): R10.33 - Periumbilical pain (2) Diarrhea: Code(s): R19.7 - Diarrhea, unspecified (3) GERD (gastroesophageal reflux disease): Code(s): K21.9 - Gastro-esophageal reflux disease without esophagitis (4) Renal insufficiency: Code(s): N28.9 - Disorder of kidney and ureter, unspecified Plan ANGUILLAN #Alissa Live She is here with her daughter who does not contribute to the history currently. She finds that greasy foods set off her diarrhea. She will get a Strong pain in the periumbilical area, that is then relieved with BM. She she still very concerned about the pain. For now I will tell her to avoid greasy foods but I think it would be good to investigate her gallbladder again with an ultrasound and a HIDA scan. She had ultrasound 2020 that was negative for gallstones. She is having quite a lot of GERD with acid brash particularly at night. She was on omeprazole 20 mg and I think I kept the dose low and avoided famotidine because she has had a history of renal insufficiency. Currently her GFR is normal but this was not so couple of months ago. I think I will try changing her to lansoprazole 30 mg which is better for renal patients and for now advised her to take Tums at bedtime. I am also adding a barium swallow since she has reflux to see if there is a hiatal hernia that is particularly large or perhaps a paraesophageal hernia contributing to her symptoms. She does feel that the dicyclomine has been helpful for her generalized cramping and she has had no adverse effects. She is agreeable to increasing the 20 mg dose to 4 times a day to see if this also helps with breakthrough diarrhea. Depending on her response and the tests above we may consider going to something like imipramine. She has failed Carafate because it constipated her. However, her report about the Carafate is inconsistent because she also says it did not work. ROV 4 weeks Orders: Orders NM hepatobiliary w pharm 05/28/23 R10.33 - Periumbilical pain US abdomen complete 05/28/23 R10.33 - Periumbilical pain FL barium swallow modified 05/28/23 K21.9 - Gastro-esophageal reflux disease without esophagitis Medications: New lansoprazole 30 mg PO DAILY 30 caps 6RF K21.9 - Gastro-esophageal reflux disease without esophagitis, N28.9 - Disorder of kidney and ureter, unspecified Changed From dicyclomine 20 mg PO TID 270 tabs 1RF K58.9 - Irritable bowel syndrome without diarrhea To dicyclomine 20 mg PO QID 360 tabs 1RF K58.9 - Irritable bowel syndrome without diarrhea Discontinued omeprazole Discontinued Reason: Doctor's Order 20 mg PO DAILY 90 caps 1RF K21.9 - Gastro-esophageal reflux disease without esophagitis, R10.13 - Epigastric pain Coding Level of Care Code Est Pt Level 3 (11903) Diagnoses Periumbilical pain R10.33 Diarrhea R19.7 GERD (gastroesophageal reflux disease) K21.9 Renal insufficiency N28.9
== END 2023-05-28 12:58 | disposition home or self-care (01) ==
PROVIDERS: PCP Internal Medicine; Visit Provider Nurse Practitioner
DX: R10.33 Periumbilical pain (principal); R19.7 Diarrhea, unspecified; K21.9 Gastro-esophageal reflux disease without esophagitis; N28.9 Disorder of kidney and ureter, unspecified
CPT/HCPCS: 99213

== ENCOUNTER → 2023-05-28 12:21 | Outpatient (BNVA) | payer OTHER, SELFPAY | PROVIDERS: PCP Internal Medicine; Visit Provider Nurse Practitioner | DX: K21.9 Gastro-esophageal reflux disease without esophagitis (principal); R19.7 Diarrhea, unspecified; R10.33 Periumbilical pain; N28.9 Disorder of kidney and ureter, unspecified | CPT/HCPCS: 99212 ==

== ENCOUNTER 2023-05-29 07:54 | Outpatient (REF) | payer OTHER, SELFPAY ==
--- NOTE | 2023-05-29 09:33 | PFT_ITS ---
INDICATION: Cough. SPIROMETRY: FEV1 to FVC prebronchodilator 68%, postbronchodilator 72% with an FEV1 of 2.24 L, which is 110% predicted. FVC of 3.12 L, which is 105% predicted. There was a trend response to bronchodilators noted. Again, the HAL08-29 down to 64% predicted. The maximum voluntary ventilation 58% predicted. LUNG VOLUME: Total lung capacity 90% predicted with a residual volume 92% predicted. DIFFUSION CAPACITY: DLCO 71% predicted. COMPARISONS: None. INTERPRETATION: There appears to be a reversible obstructive ventilatory defect consistent with diagnosis of asthma. The patient did have a trend response to bronchodilators noted. Moderate decrease in the maximum voluntary ventilation secondary to likely deconditioning. Lung volumes within normal limits. The patient does have a mild diffusion impairment. Clinical correlation warranted. MD JOHNNIE Todd/MATHEW / [id number]
== END 2023-05-29 07:55 | disposition home or self-care (01) ==
LOC: HO.RESP 07:54
PROVIDERS: PCP Internal Medicine; Visit Provider Internal Medicine
DX: R05.9 Cough, unspecified (principal)
CPT/HCPCS: 94010; 94727; 94729

== ENCOUNTER → 2023-05-29 09:33 | Outpatient (BNV) | payer OTHER, SELFPAY | PROVIDERS: PCP Internal Medicine; Visit Provider Hospitalist | DX: R05.9 Cough, unspecified (principal) | CPT/HCPCS: 94060; 94727; 94729 ==

== ENCOUNTER → 2023-06-12 09:35 | Outpatient (REF) | payer OTHER, SELFPAY ==
--- NOTE | ~2023-06-12 | NM_ITS ---
EXAMINATION: BILIARY TRACT IMAGING STUDY WITH CCK CLINICAL INFORMATION: Periumbilical pain. COMPARISON: None. TECHNIQUE: Serial gamma scintillation camera images were obtained over the abdomen for a total observation period of 60 minutes following the intravenous administration of 5 mCi Tc-99m mebrofenin. FINDINGS: There is good concentration of activity in the liver by 5 minutes post injection. Biliary activity is visualized by 10 minutes. The gallbladder is well visualized by 25 minutes. Small bowel is well visualized by 72 minutes. At 60 minutes post radiopharmaceutical injection, a 30-minute infusion of 1.6 micrograms Sincalide was then begun and an additional 30 minutes of images were obtained. There is good emptying of the gallbladder. By the end of the study there is good clearance of activity from the liver and visualization of diffuse small bowel activity. The calculated gallbladder ejection fraction is 94% (normal gallbladder ejection fraction is greater than 35%). NM/NM hepatobiliary w pharm IMPRESSION: Visualization of the gallbladder is evidence of a patent cystic duct and strong evidence against the diagnosis of acute cholecystitis. The common bile duct is patent. Gallbladder emptying and ejection fraction are normal. Liver function appears normal.
== END ==
LOC: HO.NUCMED 09:35
PROVIDERS: PCP Internal Medicine; Visit Provider Nurse Practitioner
DX: R10.33 Periumbilical pain (principal)
CPT/HCPCS: 78227; A9537; J2805

== ENCOUNTER 2023-09-26 09:22 | Outpatient (REF) | payer OTHER, SELFPAY | END 2023-09-26 09:23 | disposition home or self-care (01) | LOC: HO.MAMMO 09:22 | PROVIDERS: PCP Internal Medicine; Visit Provider Internal Medicine | DX: Z12.31 Encounter for screening mammogram for malignant neoplasm of breast (principal) | CPT/HCPCS: 77063; 77067 ==

== ENCOUNTER → 2023-09-26 10:45 | Outpatient (BNV) | payer OTHER, SELFPAY | PROVIDERS: PCP Internal Medicine; Visit Provider Radiology Diagnostic Radiology | DX: Z12.31 Encounter for screening mammogram for malignant neoplasm of breast (principal) | CPT/HCPCS: 77063; 77067 ==

== ENCOUNTER 2023-09-29 09:33 | Outpatient (REF) | payer OTHER, SELFPAY ==
[2023-09-29 09:46] LABS: MANUAL DIFF FLAG NO
[2023-09-29 09:58] LABS: Basophils Percent Auto 0.4 % (0-2); Eosinophils Absolute Auto 0.2 X10*3/uL (0.0-0.4); Hematocrit 40.7 % (37.0-47.0); Hemoglobin 13.4 g/dl (12.0-16.0); Imm Gran Abs Auto 0.02 X10*3/uL (0.00-0.03); Imm Gran Pct Auto 0.3 % (0.0-0.4); Lymphocytes Absolute Auto 2.8 X10*3/uL (1.2-4.9); Lymphocytes Percent Auto 40.3 % (20-40); Mean Corpuscular HGB Conc 32.9 g/dl (31.0-35.0); Mean Corpuscular Hemoglobin 29.5 pg (27.0-33.0); Mean Corpuscular Volume 89.6 fL (80.0-98.0); Mean Platelet Volume 10.2 fL (9.4-12.3); Monocytes Absolute Auto 0.5 X10*3/uL (0.1-1.2); Monocytes Percent Auto 6.4 % (2-11); Neutrophils Absolute Auto 3.5 x10*3/uL (2.0-8.3); Neutrophils Percent Auto 49.6 % (45-73); Platelet Count 281 X10*3/uL (160-400); Red Blood Count 4.54 X10*6/uL (4.20-5.50); Red Cell Distribution Width 12.4 % (11.0-16.0); White Blood Count 7.1 X10*3/uL (4.8-10.8)
[2023-09-29 11:39] LABS: Alanine Aminotransferase 16 U/L (0-31); Albumin Level 4.2 g/dL (3.5-5.0); Alkaline Phosphatase 89 U/L (39-117); Anion Gap 13 (12-20); Aspartate Amino Transferase 20 U/L (5-31); Bilirubin Total 0.4 mg/dL (0.0-1.0); Blood Urea Nitrogen 10 mg/dL (9-16); Calcium 9.9 mg/dL (8.4-10.2); Carbon Dioxide 27 mmol/L (22-29); Chloride 104 mmol/L (96-108); Cholesterol 264 mg/dL (<200); Estimated Glomerular Filt Rate > 60; Free T4 (Free Thyroxine) 1.06 ng/dL (0.71-1.85); Glucose Random 103 mg/dL (60-115); HDL Cholesterol 67 mg/dL (>40); LDL Cholesterol Calculated 158 mg/dL (<100); Potassium 3.8 mmol/L (3.3-5.1); Sodium 140 mmol/L (135-145); Thyroid Stimulating Hormone 1.21 uIU/mL (0.32-4.0); Total Protein 8.2 g/dL (6.5-8.0); Triglycerides 199 mg/dL (<150)
[2023-09-30 15:59] LABS: Vitamin B12 863 pg/mL (200-900)
== END 2023-09-29 09:34 | disposition home or self-care (01) ==
LOC: HO.LAB 09:33
PROVIDERS: PCP Internal Medicine; Visit Provider Internal Medicine
DX: E78.00 Pure hypercholesterolemia, unspecified (principal)
CPT/HCPCS: 36415; 80053; 80061; 82306; 82607; 82746; 84439; 84443; 85025

== ENCOUNTER 2023-10-09 12:01 | Outpatient (AMB) | payer OTHER, SELFPAY ==
[2023-10-09 12:32] VITALS: BP 122/70; PULSE 61; O2SAT 97; BMI 27.4
--- NOTE | 2023-10-09 12:32 | A.OFFPC_ITS ---
Vital Signs 10/09/23 12:32 Height 5 ft 7 in Weight 175 lb 0.4 oz BMI 27.4 BP 122/70 Blood Pressure Location Lt brachial Position Sitting Pulse 61 Pulse Source Pulse Oximeter Pulse Oximetry (%) 97 Oxygen Delivery Method Room Air Intake Visit Reasons: pe Regional Coordinator Required: No Allergies No Known Drug Allergies Allergy (Unknown, Verified 10/09/23 12:32) none ENVIRONMENTAL Allergy (Unknown, Uncoded 10/09/23 12:32) ASTHMA Medication List - Last Reconciled 10/09/23 by Hilda Burroughs MD albuterol sulfate 90 mcg/actuation 2 inhalations PO Q6H PRN blood pressure monitor (Blood Pressure Kit) As directed cetirizine 10 mg PO DAILY PRN clonazepam (Klonopin) 1 mg PO DAILY dicyclomine 20 mg PO QID fluticasone propion-salmeterol 250-50 mcg/dose (Advair Diskus) 1 inh inhalation BID lansoprazole 30 mg PO DAILY lisinopril-hydrochlorothiazide 10-12.5 mg 1 tab PO DAILY montelukast (Singulair) 10 mg PO BEDTIME simvastatin 5 mg PO BEDTIME trazodone 100 mg PO BEDTIME PRN Tobacco use date assessed: 10/09/23 Fall risk assessment: No Falls in past year Last assessed Fall Risk: 10/09/23 Dental Screening Dental Screen Date: 10/09/23 Did you have a dental visit in the last 12 months?: No Did you have a dental problem in the last 6 months where you did not have access to dental care?: No HPI pe HPI Details 63-year-old overweight female with hyper tension hypercholesterolemia COPD GERD irritable bowel syndrome and renal insufficiency last seen in April 2023 patient is here for physical exam. Mammogram is up-to-date bone density was in done in 2015. Colonoscopy up-to-date December 2020. Patient had hepatobiliary scan showing patent cystic duct for the gallbladder liver normal. PFT done in May showing reversible obstructive ventilatory defect consistent with asthma. daughter interpret [facility] Medical History Overweight (BMI 25.0-29.9) Shingles Annual physical exam Neck pain Blood sugar increased Epigastric pain Colon cancer screening Annual physical exam CVA (cerebral vascular accident) Carpal tunnel syndrome Alcohol abuse Vitamin D deficiency COPD (chronic obstructive pulmonary disease) Cocaine abuse GERD (gastroesophageal reflux disease) Anemia Surgical History H/O colonoscopy History of esophagogastroduodenoscopy (EGD) Status post dilatation and curettage History of total abdominal hysterectomy and bilateral salpingo-oophorectomy Family History Father Heart attack Mother No problems noted. Paternal Grandfather No problems noted. Brother Colon cancer Heart attack Other FHx: mental illness Substance abuse Social History (Updated 10/09/23 @ 12:55 by Hilda Burroughs MD) Housing: Apartment Alcohol intake: current Alcohol intake frequency: a few times a month Alcohol type: beer Comment: stopped [id number] Patient Tobacco Use Status: Never used Tobacco Tobacco use type: Cigarette e-Cigarette/Vaping Use: Never Used Second Hand Smoke Exposure: No service: No Current occupational status: unemployed Cognitive needs: No Hearing needs: No Vision needs: Yes Questionnaire PHQ-9 Over the last 2 weeks, how often have you been bothered by any of the following problems? 1. Little interest or pleasure in doing things: not at all 2. Feeling down, depressed, or hopeless: not at all 3. Trouble falling or staying asleep, or sleeping too much: not at all 4. Feeling tired or having little energy: not at all 5. Poor appetite or overeating: not at all 6. Feeling bad about yourself - or that you are a failure or have let yourself or your family down: not at all 7. Trouble concentrating on things, such as reading the newspaper or watching television: not at all 8. Moving or speaking so slowly that other people could have noticed. Or the opposite - being so fidgety or restless that you have been moving around a lot more than usual: not at all 9. Thoughts that you would be better off or of hurting yourself in some way: not at all Total score: 0 Depression Screening Interpretation: Negative Depression Screening Done: Yes Source: Developed by Drs. Joseph Bach, Candace Rogers, Kristofer Naqvi and colleagues, with an educational steven from [employer]. Thrive Questionnaire Date Thrive assessed: 10/09/23 I am a: Patient What is your living situation today?: I have a steady place to live Within the past 12 months, did the food you bought not last and you didn't have the money to get more?: Never true Within the past 12 months, did you worry whether your food would run out before you got money to buy more?: Never true Do you have trouble paying for medicines?: No Do you have trouble getting transportation to medical appointments?: No Do you have trouble paying your heating and electricity bill?: No Do you have trouble taking care of your child, family member or friend?: No Do you have trouble with day-to-day activities such as bathing, preparing meals, shopping, managing finances, etc.?: No Are you currently unemployed and looking for a job?: No Are you interested in more education?: No Please select the resources that you would like help with: None THRIVE Score: 0 AUDIT C Alcohol Use Questionnaire (AUDIT-C) 1. How often do you have a drink containing alcohol?: Never 3. How often do you have six or more drinks on one occasion?: Never Total Score: 0 MARIA EUGENIA-7 AMB Questionnaire MARIA EUGENIA-7 Date MARIA EUGENIA - 7 assessed: 10/09/23 Feeling nervous, anxious, or on edge: 0 = Not at all Not being able to stop or control worryin = Not at all Worrying too much about different things: 0 = Not at all Trouble relaxin = Not at all Being so restless that it is hard to sit still: 0 = Not at all Becoming easily annoyed or irritable: 0 = Not at all Feeling afraid as if something awful might happen: 0 = Not at all Total MARIA EUGENIA-7 score (0-4 normal; 5-9 mild; 10-14 moderate; 15-21 severe): 0 Source: Developed by Drs. Joseph Bach, Candace Rogers, Kristofer Naqvi and colleagues, with an educational steven from [employer]. Review of Systems Const Denies poor appetite and Denies weakness Eyes Denies no additional complaints ENT Reports Normal hearing present, Denies dizziness, Denies nasal congestion, Denies tinnitus and Denies sore throat Card Denies chest pain, Denies syncope, Denies rapid heart rate and Denies dyspnea Resp Denies cough and Denies dyspnea GI Denies change in stool character, Reports constipation, Denies diarrhea, Denies nausea and Denies vomiting Denies urinary frequency, Denies difficulty voiding and Denies dysuria Neuro Reports Normal hearing present, Denies confusion, Denies dizziness, Denies syncope and Denies weakness Psych Denies confusion Physical exam (Primary Care) Vital Signs: Last Vital Signs Pulse 61 10/09/23 12:32 BP 122/70 10/09/23 12:32 Pulse Ox 97 10/09/23 12:32 Oxygen Delivery Method Room Air 10/09/23 12:32 BMI result Body Mass Index 27.4 Tobacco/Smoking Status: Tobacco use Status Tobacco use date assessed 10/09/23 10/09/23 12:38 Patient Tobacco Use Status Never used Tobacco 10/09/23 12:38 Tobacco use type Cigarette 10/09/23 12:38 e-Cigarette/Vaping Use Never Used 10/09/23 12:38 PHQ-9: PHQ-9 Score PHQ-9: Total score 0 10/09/23 12:38 Depression Screening Interpretation: Negative Thrive Assessment: Date of Thrive Assessment Date Thrive assessed 10/09/23 10/09/23 12:38 Const General: No confusion Orientation/consciousness: No confusion HENMT Head: Yes normocephalic Ears: external ears normal and TM's normal bilaterally Face and sinus: Yes normal facial exam Mouth: moist mucous membranes Throat: Yes tonsils normal Eyes Conjunctivae: conjunctivae normal Pupils: Equal, round and reactive pupils present and Pupil accommodation reflex normal Direct Ophthalmoscopy: normal light reflex Neck Neck: No lymphadenopathy Thyroid: Thyroid normal Chest Chest palpation & inspection: normal inspection of the chest Resp Effort & Inspection: normal respiratory effort and no audible wheezes Auscultation: clear to auscultation bilaterally, no crackles, no wheezes and lung sounds not diminished Cardio Rate: regular rate Rhythm: regular rhythm Peripheral pulses: radial pulses present and dorsalis pedis present GI Palpation (GI): no masses Auscultation: normal bowel sounds and normoactive bowel sounds Rectal Exam - Female: deferred Skin General skin exam: no rashes or lesions noted Rashes: no rashes Neuro General: No confusion Cranial nerves: Yes Equal, round and reactive pupils present and Yes Normal hearing present Cognition (Neuro): normal cognition Gait exam (Neuro): Normal gait present Motor exam (neuro): 5/5 motor strength present throughout Deep tendon reflexes (DTR's): Right brachioradialis reflex intensity grade: 2+, Left brachioradialis reflex intensity grade: 2+, Right patellar reflex intensity grade: 2+ and Left patellar reflex intensity grade: 2+ Extrem General: No edema Assessment and Plan Assessment & Plan (1) Annual physical exam: Code(s): Z00.00 - Encounter for general adult medical examination without abnormal findings (2) Overweight (BMI 25.0-29.9): Code(s): E66.3 - Overweight Plan: Continue with diet and exercise (3) Hypertension: Code(s): I10 - Essential (primary) hypertension Plan: Continue with blood pressure medication. Decrease salt intake and exercise presently taking lisinopril hydrochlorothiazide (4) Hypercholesterolemia: Code(s): E78.00 - Pure hypercholesterolemia, unspecified Plan: Avoid fried foods, chicken skin, eggs, butter margarine, pastries and meat. Be it pork or beef they have a lot of cholesterol LDL goal of less than 130 and triglyceride of less than 150 patient is on simvastatin 5 mg once a day. With the LDL still elevated will increase simvastatin to 10 mg once a day (5) Asthma: Comment: PFT 2022 Code(s): J45.909 - Unspecified asthma, uncomplicated Plan: PFT done continue with the inhalers. (6) Generalized anxiety disorder: Comment: [facility] Code(s): F41.1 - Generalized anxiety disorder Plan: Continue with counseling and therapy (7) Dysphagia: Code(s): R13.10 - Dysphagia, unspecified Plan: Barium swallow requested (8) Impaired fasting blood sugar: Code(s): R73.01 - Impaired fasting glucose Plan: Decrease the amount of carbohydrate intake, pasta, bread, rice and potatoes are all sugar and that is aside from all the sweet stuff, remember that fruits are good but they are Sweet also. (9) Age-related osteoporosis without current pathological fracture: Code(s): M81.0 - Age-related osteoporosis without current pathological fracture Plan: Bone density requested Orders: Orders Complete Blood Count Auto Diff Today E78.00 - Pure hypercholesterolemia, unspecified Free T4 (Free Thyroxine) Today E78.00 - Pure hypercholesterolemia, unspecified XR DEXA axial skeleton Today M81.0 - Age-related osteoporosis without current pathological fracture Comprehensive Met. Panel Today E78.00 - Pure hypercholesterolemia, unspecified Thyroid Stimulating Hormone Today E78.00 - Pure hypercholesterolemia, unspecified Vitamin B12 and Folate Today E78.00 - Pure hypercholesterolemia, unspecified Lipid Panel Today E78.00 - Pure hypercholesterolemia, unspecified FL barium swallow Today R13.10 - Dysphagia, unspecified Hemoglobin A1c Today R73.01 - Impaired fasting glucose Medications: New montelukast (Singulair) 10 mg PO BEDTIME 90 tabs 0RF J45.909 - Unspecified asthma, uncomplicated Changed From simvastatin 5 mg PO BEDTIME 90 tabs 1RF E78.00 - Pure hypercholesterolemia, unspecified To simvastatin 10 mg PO BEDTIME 30 tabs 3RF 30 days E78.00 - Pure hypercholesterolemia, unspecified Coding Level of Care Code Est Pt Prev Care >65y(98838) Diagnoses Annual physical exam Z00.00 Overweight (BMI 25.0-29.9) E66.3 Hypertension I10 Hypercholesterolemia E78.00 Asthma J45.909 Generalized anxiety disorder F41.1 Dysphagia R13.10 Impaired fasting blood sugar R73.01 Age-related osteoporosis without current pathological fracture M81.0
== END 2023-10-09 13:12 | disposition home or self-care (01) ==
PROVIDERS: PCP Internal Medicine; Visit Provider Internal Medicine
DX: Z00.00 Encounter for general adult medical examination without abnormal findings (principal); E66.3 Overweight; I10 Essential (primary) hypertension; E78.00 Pure hypercholesterolemia, unspecified; J45.909 Unspecified asthma, uncomplicated; F41.1 Generalized anxiety disorder; R13.10 Dysphagia, unspecified; R73.01 Impaired fasting glucose; M81.0 Age-related osteoporosis without current pathological fracture
CPT/HCPCS: 99397

== ENCOUNTER 2023-10-23 09:16 | Outpatient (REF) | payer OTHER, SELFPAY ==
--- NOTE | ~2023-10-23 | MM_ITS ---
EXAMINATION: BONE DENSITOMETRY CLINICAL INDICATION: Age-related osteoporosis without current pathological fracture. COMPARISON: Baseline BD dated 10/25/2015. TECHNIQUE: Using a [employer] DXA System (software version: 13.1) manufactured by [employer], dual-energy x-ray absorptiometry was performed of the lumbar spine and left hip. The images are of good technical quality. Summary results are attached. FINDINGS: LEFT FEMUR, NECK: Current: BMD 0.933 g/cm2, Z-score 0.4, T-score -0.8, normal. Baseline: BMD 1.029 g/cm2. LEFT FEMUR, TOTAL: Current: BMD 0.976 g/cm2, Z-score 0.6, T-score -0.3, normal, 4.6% decrease from baseline (<5% change is not significant). Baseline: BMD 1.023 g/cm2. AP SPINE L1-L2 (excluding L3 and L4): The data of L1-L4 has been changed to exclude the L3 and L4 vertebral bodies, because degenerative sclerosis at these levels may cause overestimation of lumbar spine density. Current: BMD 1.172 g/cm2, Z-score 1.2, T-score 0.1, normal, 9.6% decrease from baseline (<5% change is not significant). Baseline: BMD 1.297 g/cm2. IDENTIFIED RISK FACTORS: Bilateral ovariectomy, hysterectomy, menopause. HISTORY OF FRACTURE: None listed. MEDICATIONS: None listed. MM/XR DEXA axial skeleton IMPRESSION: 1. DIAGNOSIS: Normal bone density based on the lowest T-score value of -0.8 in the femoral neck applying World Health Organization criteria. 2. 10-YEAR FRACTURE RISK PREDICTION, FRAX: According to the guidelines, FRAX calculation should only be performed on patients in the osteopenia bone density category. Therefore, FRAX was not performed on this patient.? 3. Treatment Recommendations: NOF guidelines recommend consideration for treatment in postmenopausal women and men age 50 and older presenting with the following: -A hip or vertebral (clinical or morphometric) fracture. -T-score less than or equal to -2.5 at the femoral neck or spine after appropriate evaluation to exclude secondary causes. -Low bone mass at the hip or spine and a 10-year fracture probability by FRAX of greater than or equal to 3% for hip fracture or greater than or equal to 20% for major osteoporotic fracture based on the [place] adapted WHO algorithm. 4. Other Recommendations: All treatment decisions require clinical judgment and consideration of individual patient factors, including patient preferences, comorbidities, previous drug use, risk factors not captured in the FRAX model (e.g. frailty, falls, vitamin D deficiency, increased bone turnover, interval significant decline in bone density) and possible under or overestimation of fracture risk by FRAX. FUTURE SCAN RECOMMENDATION: People with diagnosed cases of osteoporosis or at high risk for fracture should have regular bone mineral density tests. For patients eligible for Medicare, routine testing is allowed once every 2 years. The testing frequency can be increased to one year for patients who have rapidly progressing disease, those who are receiving or discontinuing medical therapy to restore bone mass, or have additional risk factors.
== END 2023-10-23 09:17 | disposition home or self-care (01) ==
LOC: HO.MAMMO 09:16
PROVIDERS: PCP Internal Medicine; Visit Provider Internal Medicine
DX: Z13.820 Encounter for screening for osteoporosis (principal); Z78.0 Asymptomatic menopausal state; M81.0 Age-related osteoporosis without current pathological fracture
CPT/HCPCS: 77080

== ENCOUNTER 2023-12-09 09:01 | Outpatient (REF) | payer OTHER, SELFPAY ==
--- NOTE | ~2023-12-09 | FL_ITS ---
EXAMINATION: XR FLUOROSCOPY UPPER GI WITH AIR CLINICAL INFORMATION: Dysphagia. Reflux COMPARISON: None TECHNIQUE: Fluoroscopic air contrast upper GI examination was performed utilizing standard techniques with thin and thick barium and effervescent granules. Numerous spot images were obtained. FINDINGS: Lateral cine images of the oropharynx and hypopharynx demonstrate normal swallow mechanism with normal epiglottic inversion and soft palate elevation. There is laryngeal penetration to the level the true vocal cords. No tracheal penetration, glottic or subglottic aspiration was identified. Persistent contrast pooling in the vallecula and piriform sinuses noted. No nasopharyngeal reflux present. Hypopharyngeal structures appear normal without evidence of mass or diverticulum. There is mild cricopharyngeal achalasia present (RF 1-7, 26/145). Dual and single contrast images of the esophagus demonstrate a normal caliber and contour. There is a granular appearance of the mid and distal esophageal mucosa. No evidence of stricture, mass, or ulcerations identified. Esophageal peristalsis was mildly disorganized. A small type I hiatal hernia is present. Gastroesophageal reflux is seen up to the thoracic inlet. Dual contrast and single contrast images of the stomach demonstrated a normal contour. There are multiple tiny foci of contrast pooling in the fundus and body the stomach that may represents small superficial aphthous ulcers. No masses are present. Contrast freely passed into the gastric antrum and duodenal bulb without delay. Single and air-contrast images of the duodenal bulb demonstrate no abnormality. No malrotation. There is mild thickening of the duodenal and proximal jejunal folds that may represents enteritis. FLUOROSCOPY TIME: 6 minutes 22 seconds Number of Spot Images: 10 Number of Cine: 15 DOSE AREA PRODUCT: 3100 uGy-m2 (microgray-meter squared) FL/FL barium swallow IMPRESSION: 1. Laryngeal penetration is seen up to level the vocal cords. No subglottic or tracheal aspiration was identified. 2. Mild cricopharyngeal achalasia. 3. Granular appearance of the mid and distal esophageal mucosa that likely represents reflux esophagitis. 4. Mildly disorganized esophageal peristalsis. 5. Small type I hiatal hernia. 6. Significant gastroesophageal reflux. 7. Multiple tiny foci of contrast pooling in the fundus and body the stomach that may represent small superficial aphthous ulcers. Recommend correlation with EGD. 8. Possible mild thickening of the duodenal and proximal jejunal folds that could represent mild proximal enteritis. This could be artifactual, or conversely if real represent infectious or inflammatory enteritis, including malabsorption syndromes. This procedure was performed by Akhil Zavaleta PA-C, and supervised by Dr. Goldman
== END 2023-12-09 09:02 | disposition home or self-care (01) ==
LOC: HO.XRAY 09:01
PROVIDERS: PCP Internal Medicine; Visit Provider Internal Medicine
DX: R13.10 Dysphagia, unspecified (principal)
CPT/HCPCS: 74220

== ENCOUNTER → 2023-12-09 10:00 | Outpatient (BNV) | payer OTHER, SELFPAY | PROVIDERS: PCP Internal Medicine; Visit Provider Physician Assistant Surgical | DX: R13.10 Dysphagia, unspecified (principal) | CPT/HCPCS: 74246 ==

== ENCOUNTER 2023-12-17 12:13 | Outpatient (AMB) | payer OTHER, SELFPAY ==
--- NOTE | 2023-12-17 12:28 | A.OFFVIS_ITS ---
Vital Signs 12/17/23 12:29 Height 5 ft 7 in Weight 173 lb 11.588 oz BMI 27.2 BP 98/60 Blood Pressure Location Lt brachial Position Sitting Pulse 77 Intake Visit Reasons: Follow up dysphagia Intake Note: Eliza returns in follow up of barium swallow and hepatobiliary scan. CC: Patient c/o diarrhea after she eats and drinks, occasional abdominal pain, and epigastric pain. Patient states that last month she saw blood on the toilet paper after wiping. She also states that her mother was recently diagnosed with colon cancer. 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 Accompanied by: Daughter Allergies No Known Drug Allergies Allergy (Unknown, Verified 12/17/23 12:35) none ENVIRONMENTAL Allergy (Unknown, Uncoded 10/09/23 12:32) ASTHMA HPI HPI Follow up dysphagia: Details: Assessment & Plan (1) Periumbilical pain: Code(s): R10.33 - Periumbilical pain (2) Diarrhea: Code(s): R19.7 - Diarrhea, unspecified (3) GERD (gastroesophageal reflux disease): Code(s): K21.9 - Gastro-esophageal reflux disease without esophagitis (4) Renal insufficiency: Code(s): N28.9 - Disorder of kidney and ureter, unspecified Plan OMANI #Alissa Live She is here with her daughter who does not contribute to the history currently. She finds that greasy foods set off her diarrhea. She will get a Strong pain in the periumbilical area, that is then relieved with BM. She she still very concerned about the pain. For now I will tell her to avoid greasy foods but I think it would be good to investigate her gallbladder again with an ultrasound and a HIDA scan. She had ultrasound 2020 that was negative for gallstones. She is having quite a lot of GERD with acid brash particularly at night. She was on omeprazole 20 mg and I think I kept the dose low and avoided famotidine because she has had a history of renal insufficiency. Currently her GFR is normal but this was not so couple of months ago. I think I will try changing her to lansoprazole 30 mg which is better for renal patients and for now advised her to take Tums at bedtime. I am also adding a barium swallow since she has reflux to see if there is a hiatal hernia that is particularly large or perhaps a paraesophageal hernia contributing to her symptoms. She does feel that the dicyclomine has been helpful for her generalized cramping and she has had no adverse effects. She is agreeable to increasing the 20 mg dose to 4 times a day to see if this also helps with breakthrough diarrhea. Depending on her response and the tests above we may consider going to something like imipramine. She has failed Carafate because it constipated her. However, her report about the Carafate is inconsistent because she also says it did not work. ROV 4 weeks Orders: Orders NM hepatobiliary w pharm 05/28/23 R10.33 - Periumbilical pain US abdomen complete 05/28/23 R10.33 - Periumbilical pain FL barium swallow modified 05/28/23 K21.9 - Gastro-esophageal reflux disease without esophagitis Medications: New lansoprazole 30 mg PO DAILY 30 caps 6RF K21.9 - Gastro-esophageal reflux disease without esophagitis, N28.9 - Disorder of kidney and ureter, unspecified Changed From dicyclomine 20 mg PO TID 270 tabs 1RF K58.9 - Irritable bowel syndrome without diarrhea To dicyclomine 20 mg PO QID 360 tabs 1RF K58.9 - Irritable bowel syndrome without diarrhea Discontinued omeprazole Discontinued Reason: Doctor's Order 20 mg PO DAILY 90 caps 1RF K21.9 - Gastro-esophageal reflux disease without esophagitis, R10.13 - Epigastric pain HIDA SCAN 06/12/23 MPRESSION: Visualization of the gallbladder is evidence of a patent cystic duct and strong evidence against the diagnosis of acute cholecystitis. The common bile duct is patent. Gallbladder emptying and ejection fraction are normal. Liver function appears normal. BARIUM SWALLOW 12/09/23 FINDINGS: Lateral cine images of the oropharynx and hypopharynx demonstrate normal swallow mechanism with normal epiglottic inversion and soft palate elevation. There is laryngeal penetration to the level the true vocal cords. No tracheal penetration, glottic or subglottic aspiration was identified. Persistent contrast pooling in the vallecula and piriform sinuses noted. No nasopharyngeal reflux present. Hypopharyngeal structures appear normal without evidence of mass or diverticulum. There is mild cricopharyngeal achalasia present (RF 1-7, 26/145). Dual and single contrast images of the esophagus demonstrate a normal caliber and contour. There is a granular appearance of the mid and distal esophageal mucosa. No evidence of stricture, mass, or ulcerations identified. Esophageal peristalsis was mildly disorganized. A small type I hiatal hernia is present. Gastroesophageal reflux is seen up to the thoracic inlet. Dual contrast and single contrast images of the stomach demonstrated a normal contour. There are multiple tiny foci of contrast pooling in the fundus and body the stomach that may represents small superficial aphthous ulcers. No masses are present. Contrast freely passed into the gastric antrum and duodenal bulb without delay. Single and air-contrast images of the duodenal bulb demonstrate no abnormality. No malrotation. There is mild thickening of the duodenal and proximal jejunal folds that may represents enteritis. FLUOROSCOPY TIME: 6 minutes 22 seconds Number of Spot Images: 10 Number of Cine: 15 DOSE AREA PRODUCT: 3100 uGy-m2 (microgray-meter squared) FL/FL barium swallow IMPRESSION: 1. Laryngeal penetration is seen up to level the vocal cords. No subglottic or tracheal aspiration was identified. 2. Mild cricopharyngeal achalasia. 3. Granular appearance of the mid and distal esophageal mucosa that likely represents reflux esophagitis. 4. Mildly disorganized esophageal peristalsis. 5. Small type I hiatal hernia. 6. Significant gastroesophageal reflux. 7. Multiple tiny foci of contrast pooling in the fundus and body the stomach that may represent small superficial aphthous ulcers. Recommend correlation with EGD. 8. Possible mild thickening of the duodenal and proximal jejunal folds that could represent mild proximal enteritis. This could be artifactual, or conversely if real represent infectious or inflammatory enteritis, including malabsorption syndromes. Laboratory Tests 09/29/23 09:44 WBC 7.1 Hgb 13.4 Hct 40.7 MCV 89.6 MCH 29.5 Plt Count 281 Estimated GFR > 60 Total Bilirubin 0.4 AST 20 ALT 16 Alkaline Phosphatase 89 TSH 1.21 TODAY'S VISIT OMANI #Soledad PATIENT HAS BEEN LOST TO FOLLOW-UP SINCE 05/2023 WHEN SHE WAS SUPPOSED TO COME BACK FOR 4 WEEK FOLLOW-UP We review the barium swallow and the HIDA scan. She received the lansoprazole but still has GERD, and she has post pranidal diarrhea with soft stools. She says she is losing weight. She is concerned about repeat colonoscopy saying they just discovered that her mother had crc. She had one in 2020 and it was negative so she would be due for repeat in 2025 Will get EGD. Start liquid carafate. Her asthma COPD is well controlled and she denies any cardiac problems. There are no prior problems with anesthesia or sedation. There are no known infectious disease problems. Dysphagia continues at the sternal notch. Return office visit in 5 weeks to evaluate her response to the liquid Carafate. [facility] [place] Medical History Overweight (BMI 25.0-29.9) Shingles Annual physical exam Neck pain Blood sugar increased Epigastric pain Colon cancer screening Annual physical exam CVA (cerebral vascular accident) Carpal tunnel syndrome Alcohol abuse Vitamin D deficiency COPD (chronic obstructive pulmonary disease) Cocaine abuse GERD (gastroesophageal reflux disease) Anemia Surgical History H/O colonoscopy History of esophagogastroduodenoscopy (EGD) Status post dilatation and curettage History of total abdominal hysterectomy and bilateral salpingo-oophorectomy Family History Father Heart attack Mother Colon cancer Paternal Grandfather No problems noted. Brother Colon cancer Heart attack Other FHx: mental illness Substance abuse Social History Housing: Apartment Alcohol intake: current Alcohol intake frequency: a few times a month Alcohol type: beer Comment: stopped /2023 Patient Tobacco Use Status: Never used Tobacco Tobacco use type: Cigarette e-Cigarette/Vaping Use: Never Used Second Hand Smoke Exposure: No service: No Current occupational status: unemployed Cognitive needs: No Hearing needs: No Vision needs: Yes Review of Systems Const Denies fatigue, Denies fever(s), Reports night sweats, Denies poor appetite and Reports weight loss ENT Reports Normal hearing present, Denies dental pain, Reports dysphagia, Denies hearing loss, Denies mouth pain, Denies odynophagia, Denies throat swelling, Denies tongue swelling and Reports other (Dentition adequate) Card Reports no additional complaints Resp Reports no additional complaints GI Details: Reports abdominal pain, Denies melena, Denies bloating, Denies hematochezia, Denies constipation, Denies GI cramping, Reports dysphagia, Denies excessive flatus, Denies early satiety, Reports heartburn, Denies diarrhea, Reports loose stools, Denies nausea, Denies odynophagia, Denies vomiting and Denies hematemesis Skin/Breast Denies pruritus, Denies lesions, Denies rash and Denies jaundice Neuro Reports Normal hearing present and Denies Abnormal speech present Endo Denies fatigue Aller/Immun Denies throat swelling and Denies tongue swelling Physical Exam Vital Signs: Last Vital Signs Pulse 77 12/17/23 12:29 BP 98/60 12/17/23 12:29 BMI result Body Mass Index 27.2 Const General: cooperative, no acute distress, well developed and well groomed Nutritional Appearance: average body habitus and well nourished Orientation/consciousness: oriented to person, oriented to place and oriented to time Limitations: language barrier HEENT Head: Yes normocephalic and Yes atraumatic Eyes General: appearance normal, both eyes and all related structures Pupils: Equal, round and reactive pupils present Neck Neck: Yes normal visual inspection and Yes no lymphadenopathy Thyroid: Thyroid normal Resp Effort & Inspection: normal respiratory effort and able to speak in complete sentences Auscultation: clear to auscultation bilaterally Cardio Rate: regular rate Rhythm: regular rhythm Heart sounds: Normal, physiologic split S2 sound present Peripheral pulses: radial pulses present and posterior tibial pulses present GI Inspection: No distended and No Abdominal panniculus present Palpation (GI): Soft to palpation, nontender, no guarding, not rigid and No hepatosplenomegaly present Percussion: Yes normal to percussion Auscultation: normal bowel sounds Rectal Exam - Female: deferred Skin General skin exam: no rashes or lesions noted, turgor normal, skin not dry, no jaundice, No spider nevi and no striae Rashes: no rashes Nails: normal Neuro General: oriented to person, oriented to place and oriented to time Cranial nerves: Yes Equal, round and reactive pupils present and Yes Normal hearing present Speech: No Abnormal speech present Extrem General: Yes normal to inspection, No clubbing, No cyanosis and No edema Psych Appearance: grossly normal and well kempt Mental Status: mental status grossly normal Speech and movement: Normal speech and movement present Affect: normal affect Attitude: cooperative Thought process: Normal thought process present and not confabulating Thought content: Normal thought content present Insight: Limited insight present (Psych) Judgement: Limited judgement present (Psych) Results Reviewed Results Reviewed: HIDA SCAN 06/12/23 MPRESSION: Visualization of the gallbladder is evidence of a patent cystic duct and strong evidence against the diagnosis of acute cholecystitis. The common bile duct is patent. Gallbladder emptying and ejection fraction are normal. Liver function appears normal. BARIUM SWALLOW 12/09/23 FINDINGS: Lateral cine images of the oropharynx and hypopharynx demonstrate normal swallow mechanism with normal epiglottic inversion and soft palate elevation. There is laryngeal penetration to the level the true vocal cords. No tracheal penetration, glottic or subglottic aspiration was identified. Persistent contrast pooling in the vallecula and piriform sinuses noted. No nasopharyngeal reflux present. Hypopharyngeal structures appear normal without evidence of mass or diverticulum. There is mild cricopharyngeal achalasia present (RF 1-7, 26/145). Dual and single contrast images of the esophagus demonstrate a normal caliber and contour. There is a granular appearance of the mid and distal esophageal mucosa. No evidence of stricture, mass, or ulcerations identified. Esophageal peristalsis was mildly disorganized. A small type I hiatal hernia is present. Gastroesophageal reflux is seen up to the thoracic inlet. Dual contrast and single contrast images of the stomach demonstrated a normal contour. There are multiple tiny foci of contrast pooling in the fundus and body the stomach that may represents small superficial aphthous ulcers. No masses are present. Contrast freely passed into the gastric antrum and duodenal bulb without delay. Single and air-contrast images of the duodenal bulb demonstrate no abnormality. No malrotation. There is mild thickening of the duodenal and proximal jejunal folds that may represents enteritis. FLUOROSCOPY TIME: 6 minutes 22 seconds Number of Spot Images: 10 Number of Cine: 15 DOSE AREA PRODUCT: 3100 uGy-m2 (microgray-meter squared) FL/FL barium swallow IMPRESSION: 1. Laryngeal penetration is seen up to level the vocal cords. No subglottic or tracheal aspiration was identified. 2. Mild cricopharyngeal achalasia. 3. Granular appearance of the mid and distal esophageal mucosa that likely represents reflux esophagitis. 4. Mildly disorganized esophageal peristalsis. 5. Small type I hiatal hernia. 6. Significant gastroesophageal reflux. 7. Multiple tiny foci of contrast pooling in the fundus and body the stomach that may represent small superficial aphthous ulcers. Recommend correlation with EGD. 8. Possible mild thickening of the duodenal and proximal jejunal folds that could represent mild proximal enteritis. This could be artifactual, or conversely if real represent infectious or inflammatory enteritis, including malabsorption syndromes. Laboratory Tests 09/29/23 09:44 WBC 7.1 Hgb 13.4 Hct 40.7 MCV 89.6 MCH 29.5 Plt Count 281 Estimated GFR > 60 Total Bilirubin 0.4 AST 20 ALT 16 Alkaline Phosphatase 89 TSH 1.21 Assessment & Plan Assessment & Plan (1) Gastric ulcer: Comment: Barium swallow December 2023. Laryngeal penetration is seen up to level the vocal cords. No subglottic or tracheal aspiration was identified. 2. Mild cricopharyngeal achalasia. 3. Granular appearance of the mid and distal esophageal mucosa that likely represents reflux esophagitis. 4. Mildly disorganized esophageal peristalsis. 5. Small type I hiatal hernia. 6. Significant gastroesophageal reflux. 7. Multiple tiny foci of contrast pooling in the fundus and body the stomach that may represent small superficial aphthous ulcers. Recommend correlation with EGD. 8. Possible mild thickening of the duodenal and proximal jejunal folds that could represent mild proximal enteritis. This could be artifactual, or conversely if real represent infectious or inflammatory enteritis, including malabsorption syndromes. Code(s): K25.9 - Gastric ulcer, unspecified as acute or chronic, without hemorrhage or perforation Category: Medical (2) Esophagitis: Code(s): K20.90 - Esophagitis, unspecified without bleeding Category: Medical (3) Dysphagia: Code(s): R13.10 - Dysphagia, unspecified Category: Medical (4) Pre-op examination: Code(s): Z01.818 - Encounter for other preprocedural examination Category: Medical Plan OMANI #Soledad PATIENT HAS BEEN LOST TO FOLLOW-UP SINCE 05/2023 WHEN SHE WAS SUPPOSED TO COME BACK FOR 4 WEEK FOLLOW-UP We review the barium swallow and the HIDA scan. She received the lansoprazole but still has GERD, and she has post pranidal diarrhea with soft stools. She says she is losing weight. She is concerned about repeat colonoscopy saying they just discovered that her mother had crc. She had one in 2020 and it was negative so she would be due for repeat in 2025 Will get EGD. Start liquid carafate. Her asthma COPD is well controlled and she denies any cardiac problems. There are no prior problems with anesthesia or sedation. There are no known infectious disease problems. Dysphagia continues at the sternal notch. Return office visit in 5 weeks to evaluate her response to the liquid Carafate. Orders: Orders EGD with [facility] - GI Use Only 12/17/23 K20.90 - Esophagitis, unspecified without bleeding, R13.10 - Dysphagia, unspecified Medications: New sucralfate (Carafate) 10 mL PO QNOON 400 mL 6RF K20.90 - Esophagitis, unspecified without bleeding, K25.9 - Gastric ulcer, unspecified as acute or chronic, without hemorrhage or perforation Changed From lansoprazole 30 mg PO DAILY 30 caps 0RF K21.9 - Gastro-esophageal reflux disease without esophagitis, N28.9 - Disorder of kidney and ureter, unspecified To lansoprazole 30 mg PO BID 60 caps 6RF K21.9 - Gastro-esophageal reflux disease without esophagitis, N28.9 - Disorder of kidney and ureter, unspecified Refilled dicyclomine 20 mg PO QID 360 tabs 1RF K58.9 - Irritable bowel syndrome without diarrhea Coding Level of Care Code Est Pt Level 4 (08285) Diagnoses Gastric ulcer K25.9 Esophagitis K20.90 Dysphagia R13.10 Pre-op examination Z01.818
[2023-12-17 12:29] VITALS: BP 98/60; PULSE 77; BMI 27.2
== END 2023-12-17 13:04 | disposition home or self-care (01) ==
PROVIDERS: PCP Internal Medicine; Visit Provider Nurse Practitioner
DX: K25.9 Gastric ulcer, unspecified as acute or chronic, without hemorrhage or perforation (principal); K20.90 Esophagitis, unspecified without bleeding; R13.10 Dysphagia, unspecified; Z01.818 Encounter for other preprocedural examination
CPT/HCPCS: 99214

== ENCOUNTER → 2023-12-17 12:13 | Outpatient (BNVA) | payer OTHER, SELFPAY | PROVIDERS: PCP Internal Medicine; Visit Provider Nurse Practitioner | DX: Z01.818 Encounter for other preprocedural examination (principal); K25.9 Gastric ulcer, unspecified as acute or chronic, without hemorrhage or perforation; K20.90 Esophagitis, unspecified without bleeding; R13.10 Dysphagia, unspecified | CPT/HCPCS: 99212 ==

== ENCOUNTER 2024-01-12 09:17 | Outpatient (REF) | payer OTHER, SELFPAY ==
[2024-01-12 09:34] LABS: MANUAL DIFF FLAG NO
[2024-01-12 10:12] LABS: Basophils Percent Auto 0.4 % (0-2); Eosinophils Absolute Auto 0.2 X10*3/uL (0.0-0.4); Hematocrit 32.8 % (37.0-47.0); Hemoglobin 11.3 g/dl (12.0-16.0); Imm Gran Abs Auto 0.02 X10*3/uL (0.00-0.03); Imm Gran Pct Auto 0.3 % (0.0-0.4); Lymphocytes Percent Auto 40.1 % (20-40); Mean Corpuscular HGB Conc 34.5 g/dl (31.0-35.0); Mean Corpuscular Hemoglobin 30.5 pg (27.0-33.0); Mean Corpuscular Volume 88.4 fL (80.0-98.0); Mean Platelet Volume 10.3 fL (9.4-12.3); Monocytes Absolute Auto 0.4 X10*3/uL (0.1-1.2); Monocytes Percent Auto 5.9 % (2-11); Neutrophils Absolute Auto 3.8 x10*3/uL (2.0-8.3); Neutrophils Percent Auto 50.3 % (45-73); Platelet Count 288 X10*3/uL (160-400); Red Blood Count 3.71 X10*6/uL (4.20-5.50); Red Cell Distribution Width 13.1 % (11.0-16.0); White Blood Count 7.4 X10*3/uL (4.8-10.8)
[2024-01-12 10:30] LABS: Estimated Average Glucose 120 mg/dL; Hemoglobin A1c % 5.8 % (<6.0)
[2024-01-12 11:18] LABS: Alanine Aminotransferase 18 U/L (0-31); Albumin Level 4.2 g/dL (3.5-5.0); Alkaline Phosphatase 100 U/L (39-117); Anion Gap 10 (12-20); Aspartate Amino Transferase 21 U/L (5-31); Bilirubin Total 0.4 mg/dL (0.0-1.0); Calcium 9.8 mg/dL (8.4-10.2); Carbon Dioxide 30 mmol/L (22-29); Chloride 105 mmol/L (96-108); Cholesterol 251 mg/dL (<200); Estimated Glomerular Filt Rate > 60; Glucose Random 104 mg/dL (60-115); HDL Cholesterol 81 mg/dL (>40); LDL Cholesterol Calculated 137 mg/dL (<100); Potassium 4.4 mmol/L (3.3-5.1); Sodium 141 mmol/L (135-145); Total Protein 7.9 g/dL (6.5-8.0); Triglycerides 169 mg/dL (<150)
[2024-01-12 11:30] LABS: Folate 12.6 ng/mL (> or = 4.0); Vitamin B12 586 pg/mL (200-900)
[2024-01-12 11:44] LABS: Thyroid Stimulating Hormone 0.77 uIU/mL (0.32-4.0)
[2024-01-12 11:50] LABS: Blood Urea Nitrogen 16 mg/dL (9-16)
== END 2024-01-12 09:18 | disposition home or self-care (01) ==
LOC: HO.LAB 09:17
PROVIDERS: PCP Internal Medicine; Visit Provider Internal Medicine
DX: E78.00 Pure hypercholesterolemia, unspecified (principal); R73.01 Impaired fasting glucose
CPT/HCPCS: 36415; 80053; 80061; 82607; 82746; 83036; 84439; 84443; 85025

== ENCOUNTER 2024-01-15 12:17 | Outpatient (AMB) | payer OTHER, SELFPAY ==
[2024-01-15 12:32] VITALS: BP 100/62; PULSE 66; O2SAT 99; BMI 27.4
--- NOTE | 2024-01-15 12:32 | MHC.PC.OV ---
Vital Signs 01/15/24 12:32 Height 5 ft 7 in Weight 175 lb 0.4 oz BMI 27.4 BP 100/62 Blood Pressure Location Lt brachial Position Sitting Pulse 66 Pulse Source Pulse Oximeter Pulse Oximetry (%) 99 Oxygen Delivery Method Room Air Intake Visit Reasons: cholesterol Polysomnograph Tech Required: No Allergies No Known Drug Allergies Allergy (Unknown, Verified 01/15/24 12:33) none ENVIRONMENTAL Allergy (Unknown, Uncoded 01/15/24 12:33) ASTHMA Tobacco use date assessed: 01/15/24 Fall risk assessment: No Falls in past year Last assessed Fall Risk: 01/15/24 Dental Screening Dental Screen Date: 10/09/23 HPI cholesterol HPI Details 63-year-old overweight female with a history of hypertension hypercholesterolemia generalized anxiety disorder asthma impaired glucose tolerance coming in for follow-up. Last seen in October for physical exam. Patient's mammogram is up-to-date bone density is up-to-date colon test is up-to-date 12/20/2020. Review of the notes has seen gastroenterology 12/17/2023 for the dysphagia patient has received lansoprazole with postprandial diarrhea advised EGD placed on liquid Carafate. Patient admits to taking NSAIDs and with this problem advised patient to stop taking those medications may take Tylenol that is about it. [facility] Medical History (Updated 01/15/24 @ 13:23 by Hilda Burroughs MD) Dysphagia Overweight (BMI 25.0-29.9) Shingles Annual physical exam Neck pain Blood sugar increased Epigastric pain Colon cancer screening Annual physical exam CVA (cerebral vascular accident) Carpal tunnel syndrome Alcohol abuse Vitamin D deficiency COPD (chronic obstructive pulmonary disease) Cocaine abuse GERD (gastroesophageal reflux disease) Anemia Surgical History H/O colonoscopy History of esophagogastroduodenoscopy (EGD) Status post dilatation and curettage History of total abdominal hysterectomy and bilateral salpingo-oophorectomy Family History Father Heart attack Mother Colon cancer Paternal Grandfather No problems noted. Brother Colon cancer Heart attack Other FHx: mental illness Substance abuse Social History Housing: Apartment Alcohol intake: current Alcohol intake frequency: a few times a month Alcohol type: beer Comment: stopped [id number] Patient Tobacco Use Status: Never used Tobacco Tobacco use type: Cigarette e-Cigarette/Vaping Use: Never Used Second Hand Smoke Exposure: No service: No Current occupational status: unemployed Cognitive needs: No Hearing needs: No Vision needs: Yes Questionnaire Thrive Questionnaire Date Thrive assessed: 10/09/23 AUDIT C Alcohol Use Questionnaire (AUDIT-C) 1. How often do you have a drink containing alcohol?: Never 3. How often do you have six or more drinks on one occasion?: Never Total Score: 0 MARIA EUGENIA-7 AMB Questionnaire MARIA EUGENIA-7 Date MARIA EUGENIA - 7 assessed: 10/09/23 Source: Developed by Drs. Joseph Bach, Candace Rogers, Kristofer Naqvi and colleagues, with an educational steven from [employer]. Physical exam (Primary Care) Vital Signs: Last Vital Signs Pulse 66 01/15/24 12:32 BP 100/62 01/15/24 12:32 Pulse Ox 99 01/15/24 12:32 Oxygen Delivery Method Room Air 01/15/24 12:32 BMI result Body Mass Index 27.4 Tobacco/Smoking Status: Tobacco use Status Tobacco use date assessed 01/15/24 01/15/24 12:33 Patient Tobacco Use Status Never used Tobacco 01/15/24 12:33 Tobacco use type Cigarette 01/15/24 12:33 e-Cigarette/Vaping Use Never Used 01/15/24 12:33 Thrive Assessment: Date of Thrive Assessment Date Thrive assessed 10/09/23 01/15/24 12:33 Const General: alert; No acute distress Eyes Conjunctivae: conjunctivae normal Resp Auscultation: clear to auscultation bilaterally Cardio Rate: regular rate Rhythm: regular rhythm GI Inspection: Yes normal to inspection Extrem General: Yes normal to inspection and No edema Assessment and Plan Assessment & Plan (1) Gastric ulcer: Comment: Barium swallow December 2023. Laryngeal penetration is seen up to level the vocal cords. No subglottic or tracheal aspiration was identified. 2. Mild cricopharyngeal achalasia. 3. Granular appearance of the mid and distal esophageal mucosa that likely represents reflux esophagitis. 4. Mildly disorganized esophageal peristalsis. 5. Small type I hiatal hernia. 6. Significant gastroesophageal reflux. 7. Multiple tiny foci of contrast pooling in the fundus and body the stomach that may represent small superficial aphthous ulcers. Recommend correlation with EGD. 8. Possible mild thickening of the duodenal and proximal jejunal folds that could represent mild proximal enteritis. This could be artifactual, or conversely if real represent infectious or inflammatory enteritis, including malabsorption syndromes. Code(s): K25.9 - Gastric ulcer, unspecified as acute or chronic, without hemorrhage or perforation Plan: Patient has seen gastroenterology and planned EGD. admits to take NSAID like motrin at times- concern on ulcers advised to stop NSAIDS (2) Impaired fasting blood sugar: Code(s): R73.01 - Impaired fasting glucose Plan: Decrease the amount of carbohydrate intake, pasta, bread, rice and potatoes are all sugar and that is aside from all the sweet stuff, remember that fruits are good but they are Sweet also. (3) Overweight (BMI 25.0-29.9): Code(s): E66.3 - Overweight Plan: Diet and exercise (4) Hypertension: Code(s): I10 - Essential (primary) hypertension Plan: Continue with blood pressure medication. Decrease salt intake and exercise on lisinopril hydrochlorothiazide 10/12.5 mg once a day (5) Generalized anxiety disorder: Comment: [facility] Counseling Code(s): F41.1 - Generalized anxiety disorder Plan: Continue with counseling and therapy (6) Hypercholesterolemia: Code(s): E78.00 - Pure hypercholesterolemia, unspecified Plan: Avoid fried foods, chicken skin, eggs, butter margarine, pastries and meat. Be it pork or beef they have a lot of cholesterol on simvastatin 10 mg at bedtime LDL goal of less than 130 and triglyceride of less than 150 (7) COPD (chronic obstructive pulmonary disease): Code(s): J44.9 - Chronic obstructive pulmonary disease, unspecified Plan: Continue with the inhalers albuterol and Advair. Orders: Orders Lipid Panel 3 Months E78.00 - Pure hypercholesterolemia, unspecified Comprehensive Met. Panel 3 Months E78.00 - Pure hypercholesterolemia, unspecified Hemoglobin A1c 3 Months R73.01 - Impaired fasting glucose Medications: New lisinopril 10 mg PO DAILY 90 tabs 1RF I10 - Essential (primary) hypertension Changed From simvastatin 10 mg PO BEDTIME 30 days 30 tabs 0RF E78.00 - Pure hypercholesterolemia, unspecified To simvastatin 20 mg PO BEDTIME 30 days 30 tabs 4RF E78.00 - Pure hypercholesterolemia, unspecified Discontinued lisinopril-hydrochlorothiazide 10-12.5 mg Discontinued Reason: Doctor's Order 1 tab PO DAILY 90 tabs 1RF I10 - Essential (primary) hypertension Coding Level of Care Code Est Pt Level 4 (29776) Diagnoses Gastric ulcer K25.9 Impaired fasting blood sugar R73.01 Overweight (BMI 25.0-29.9) E66.3 Hypertension I10 Generalized anxiety disorder F41.1 Hypercholesterolemia E78.00 COPD (chronic obstructive pulmonary disease) J44.9
== END 2024-01-15 13:39 | disposition home or self-care (01) ==
PROVIDERS: PCP Internal Medicine; Visit Provider Internal Medicine
DX: J44.9 Chronic obstructive pulmonary disease, unspecified (principal); K25.9 Gastric ulcer, unspecified as acute or chronic, without hemorrhage or perforation; R73.01 Impaired fasting glucose; E66.3 Overweight; I10 Essential (primary) hypertension; F41.1 Generalized anxiety disorder; E78.00 Pure hypercholesterolemia, unspecified
CPT/HCPCS: 99214

== ENCOUNTER 2024-01-21 12:01 | Outpatient (AMB) | payer OTHER, SELFPAY ==
--- NOTE | 2024-01-21 12:10 | A.OFFVIS_ITS ---
Vital Signs 01/21/24 12:17 Height 5 ft 7 in Weight 173 lb 11.588 oz BMI 27.2 BP 95/69 Blood Pressure Location Lt brachial Position Sitting Pulse 88 Intake Visit Reasons: 5 week follow up Intake Note: Eliza presents to in office visit today in 5 weeks follow up of dysphagia. CC: Patient continues to c/o chocking with foods. She states that she is waiting for an appointment to have EGD done. Electronic Pagination System Operator Required: Yes Accompanied by: Daughter Allergies No Known Drug Allergies Allergy (Unknown, Verified 01/21/24 13:15) none ENVIRONMENTAL Allergy (Unknown, Uncoded 01/15/24 12:33) ASTHMA HPI HPI 5 week follow up: Details: Assessment & Plan (1) Gastric ulcer: Comment: Barium swallow December 2023. Laryngeal penetration is seen up to level the vocal cords. No subglottic or tracheal aspiration was identified. 2. Mild cricopharyngeal achalasia. 3. Granular appearance of the mid and distal esophageal mucosa that likely represents reflux esophagitis. 4. Mildly disorganized esophageal peristalsis. 5. Small type I hiatal hernia. 6. Significant gastroesophageal reflux. 7. Multiple tiny foci of contrast pooling in the fundus and body the stomach that may represent small superficial aphthous ulcers. Recommend correlation with EGD. 8. Possible mild thickening of the duodenal and proximal jejunal folds that could represent mild proximal enteritis. This could be artifactual, or conversely if real represent infectious or inflammatory enteritis, including malabsorption syndromes. Code(s): K25.9 - Gastric ulcer, unspecified as acute or chronic, without hemorrhage or perforation Category: Medical (2) Esophagitis: Code(s): K20.90 - Esophagitis, unspecified without bleeding Category: Medical (3) Dysphagia: Code(s): R13.10 - Dysphagia, unspecified Category: Medical (4) Pre-op examination: Code(s): Z01.818 - Encounter for other preprocedural examination Category: Medical Plan AZERI #[place] PATIENT HAS BEEN LOST TO FOLLOW-UP SINCE 05/2023 WHEN SHE WAS SUPPOSED TO COME BACK FOR 4 WEEK FOLLOW-UP We review the barium swallow and the HIDA scan. She received the lansoprazole but still has GERD, and she has post pranidal diarrhea with soft stools. She says she is losing weight. She is concerned about repeat colonoscopy saying they just discovered that her mother had crc. She had one in 2020 and it was negative so she would be due for repeat in 2025 Will get EGD. Start liquid carafate. Her asthma COPD is well controlled and she denies any cardiac problems. There are no prior problems with anesthesia or sedation. There are no known infectious disease problems. Dysphagia continues at the sternal notch. Return office visit in 5 weeks to evaluate her response to the liquid Carafate. Orders: Orders EGD with [facility] - GI Use Only 12/17/23 K20.90 - Esophagitis, unspecified without bleeding, R13.10 - Dysphagia, unspecified Medications: New sucralfate (Carafate) 10 mL PO QNOON 400 mL 6RF K20.90 - Esophagitis, unspecified without bleeding, K25.9 - Gastric ulcer, unspecified as acute or chronic, without hemorrhage or perforation Changed From lansoprazole 30 mg PO DAILY 30 caps 0RF K21.9 - Gastro-esophageal reflux disease without esophagitis, N28.9 - Disorder of kidney and ureter, unspecified To lansoprazole 30 mg PO BID 60 caps 6RF K21.9 - Gastro-esophageal reflux disease without esophagitis, N28.9 - Disorder of kidney and ureter, unspecified Refilled dicyclomine 20 mg PO QID 360 tabs 1RF K58.9 - Irritable bowel syndrome without diarrhea EGD TODAY'S VISIT AZERI #DON'T HAVE DTR TRANSLATE NEXT TIME [facility] She did not receive the carafate and although schedulers left ms she does not recall this. Walked to schedulers to get appt. Obviously she has not need better with her swallowing and we verify the pharmacy and will try we sending it. I will have my staff follow-up to see if there is any insurance coverage or other problems with getting this dispensed. Return office visit in 6 weeks to evaluate the Carafate PFSH Medical History (Updated 01/21/24 @ 13:33 by DOMENIC Kilpatrick) Dysphagia Cough Pre-op examination Annual physical exam Overweight (BMI 25.0-29.9) Shingles Annual physical exam Neck pain Blood sugar increased Epigastric pain Colon cancer screening Annual physical exam CVA (cerebral vascular accident) Carpal tunnel syndrome Alcohol abuse Vitamin D deficiency COPD (chronic obstructive pulmonary disease) Cocaine abuse GERD (gastroesophageal reflux disease) Anemia Surgical History H/O colonoscopy History of esophagogastroduodenoscopy (EGD) Status post dilatation and curettage History of total abdominal hysterectomy and bilateral salpingo-oophorectomy Family History Father Heart attack Mother Colon cancer Paternal Grandfather No problems noted. Brother Colon cancer Heart attack Other FHx: mental illness Substance abuse Social History Housing: Apartment Alcohol intake: current Alcohol intake frequency: a few times a month Alcohol type: beer Comment: stopped [id number] Patient Tobacco Use Status: Never used Tobacco Tobacco use type: Cigarette e-Cigarette/Vaping Use: Never Used Second Hand Smoke Exposure: No service: No Current occupational status: unemployed Cognitive needs: No Hearing needs: No Vision needs: Yes Review of Systems Const Denies fatigue, Denies fever(s), Denies night sweats, Denies poor appetite and Denies weight loss ENT Reports Normal hearing present, Denies dental pain, Reports dysphagia, Denies hearing loss, Denies mouth pain, Denies odynophagia, Denies throat swelling, Denies tongue swelling and Reports other (Dentition adequate) Card Reports no additional complaints Resp Reports no additional complaints GI Details: Denies abdominal pain, Denies melena, Denies bloating, Denies hematochezia, Denies constipation, Denies GI cramping, Reports dysphagia, Denies excessive flatus, Denies early satiety, Reports heartburn, Reports diarrhea, Denies nausea, Denies odynophagia, Denies vomiting and Denies hematemesis Skin/Breast Denies pruritus, Denies lesions, Denies rash and Denies jaundice Neuro Reports Normal hearing present and Denies Abnormal speech present Endo Denies fatigue Aller/Immun Denies throat swelling and Denies tongue swelling Physical Exam Vital Signs: Last Vital Signs Pulse 88 01/21/24 12:17 BP 95/69 01/21/24 12:17 BMI result Body Mass Index 27.2 Const General: cooperative, no acute distress, well developed and well groomed Nutritional Appearance: average body habitus and well nourished Orientation/consciousness: oriented to person, oriented to place and oriented to time Limitations: language barrier HEENT Head: Yes normocephalic and Yes atraumatic Eyes General: appearance normal, both eyes and all related structures Pupils: Equal, round and reactive pupils present Neck Neck: Yes normal visual inspection and Yes no lymphadenopathy Thyroid: Thyroid normal Resp Effort & Inspection: normal respiratory effort and able to speak in complete sentences Auscultation: clear to auscultation bilaterally Cardio Rate: regular rate Rhythm: regular rhythm Heart sounds: Normal, physiologic split S2 sound present Peripheral pulses: radial pulses present and posterior tibial pulses present GI Inspection: No distended and No Abdominal panniculus present Palpation (GI): Soft to palpation, nontender, no guarding, not rigid and No hepatosplenomegaly present Percussion: Yes normal to percussion Auscultation: normal bowel sounds Rectal Exam - Female: deferred Skin General skin exam: no rashes or lesions noted, turgor normal, skin not dry, no jaundice, No spider nevi and no striae Rashes: no rashes Nails: normal Neuro General: oriented to person, oriented to place and oriented to time Cranial nerves: Yes Equal, round and reactive pupils present and Yes Normal hearing present Speech: No Abnormal speech present Extrem General: Yes normal to inspection, No clubbing, No cyanosis and No edema Psych Appearance: grossly normal and well kempt Mental Status: mental status grossly normal Speech and movement: Normal speech and movement present Affect: normal affect Attitude: cooperative Thought process: Normal thought process present and not confabulating Thought content: Normal thought content present Insight: Limited insight present (Psych) Judgement: Limited judgement present (Psych) Assessment & Plan Assessment & Plan (1) Dysphagia: Comment: Barium swallow December 2023. Laryngeal penetration is seen up to level the vocal cords. No subglottic or tracheal aspiration was identified. 2. Mild cricopharyngeal achalasia. 3. Granular appearance of the mid and distal esophageal mucosa that likely represents reflux esophagitis. 4. Mildly disorganized esophageal peristalsis. 5. Small type I hiatal hernia. 6. Significant gastroesophageal reflux. 7. Multiple tiny foci of contrast pooling in the fundus and body the stomach that may represent small superficial aphthous ulcers. Recommend correlation with EGD. 8. Possible mild thickening of the duodenal and proximal jejunal folds that could represent mild proximal enteritis. This could be artifactual, or conversely if real represent infectious or inflammatory enteritis, including malabsorption syndromes. Code(s): R13.10 - Dysphagia, unspecified Category: Medical (2) Gastric ulcer: Code(s): K25.9 - Gastric ulcer, unspecified as acute or chronic, without hemorrhage or perforation Category: Medical (3) GERD (gastroesophageal reflux disease): Code(s): K21.9 - Gastro-esophageal reflux disease without esophagitis Category: Medical (4) Irritable bowel syndrome: Code(s): K58.9 - Irritable bowel syndrome without diarrhea Category: Medical Plan AZERI #DON'T HAVE DTR TRANSLATE NEXT TIME [facility] She did not receive the carafate and although schedulers left msg she does not recall this. Walked to schedulers to get appt. Obviously she has not need better with her swallowing and we verify the pharmacy and will try we sending it. I will have my staff follow-up to see if there is any insurance coverage or other problems with getting this dispensed. Return office visit in 6 weeks to evaluate the Carafate Medications: Refilled sucralfate (Carafate) 10 mL PO QNOON 400 mL 6RF K20.90 - Esophagitis, unspecified without bleeding, K25.9 - Gastric ulcer, unspecified as acute or chronic, without hemorrhage or perforation Coding Level of Care Code Est Pt Level 3 (51305) Diagnoses Dysphagia R13.10 Gastric ulcer K25.9 GERD (gastroesophageal reflux disease) K21.9 Irritable bowel syndrome K58.9
[2024-01-21 12:17] VITALS: BP 95/69; PULSE 88; BMI 27.2
== END 2024-01-21 13:37 | disposition home or self-care (01) ==
PROVIDERS: PCP Internal Medicine; Visit Provider Nurse Practitioner
DX: R13.10 Dysphagia, unspecified (principal); K25.9 Gastric ulcer, unspecified as acute or chronic, without hemorrhage or perforation; K21.9 Gastro-esophageal reflux disease without esophagitis; K58.9 Irritable bowel syndrome, unspecified
CPT/HCPCS: 99213

== ENCOUNTER → 2024-01-21 12:01 | Outpatient (BNVA) | payer OTHER, SELFPAY | PROVIDERS: PCP Internal Medicine; Visit Provider Nurse Practitioner | DX: R13.10 Dysphagia, unspecified (principal); K21.9 Gastro-esophageal reflux disease without esophagitis; K25.9 Gastric ulcer, unspecified as acute or chronic, without hemorrhage or perforation; K58.9 Irritable bowel syndrome, unspecified | CPT/HCPCS: 99212 ==

== ENCOUNTER 2024-03-16 10:05 | Outpatient (AMB) | payer OTHER, SELFPAY ==
--- NOTE | 2024-03-16 10:15 | A.OFFVIS_ITS ---
Vital Signs 03/16/24 10:27 Height 5 ft 7 in Weight 174 lb BMI 27.2 BP 121/72 Blood Pressure Location Lt brachial Position Sitting Pulse 71 Intake Visit Reasons: follow up dysphagia, GERD Intake Note: Patient is seen in office for follow up visit, following on dysphagia and GERD. 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 Laryngeal penetration is seen up to level the vocal cords. No subglottic or tracheal aspiration was identified. 2. Mild cricopharyngeal achalasia. 3. Granular appearance of the mid and distal esophageal mucosa that likely represents reflux esophagitis. 4. Mildly disorganized esophageal peristalsis. 5. Small type I hiatal hernia. 6. Significant gastroesophageal reflux. 7. Multiple tiny foci of contrast pooling in the fundus and body the stomach that may represent small superficial aphthous ulcers. Recommend correlation with EGD. 8. Possible mild thickening of the duodenal and proximal jejunal folds that could represent mild proximal enteritis. This could be artifactual, or conversely if real represent infectious or inflammatory enteritis, including malabsorption syndromes. Code(s): R13.10 - Dysphagia, unspecified Category: Medical (2) Gastric ulcer: Code(s): K25.9 - Gastric ulcer, unspecified as acute or chronic, without hemorrhage or perforation Category: Medical (3) GERD (gastroesophageal reflux disease): Code(s): K21.9 - Gastro-esophageal reflux disease without esophagitis Category: Medical (4) Irritable bowel syndrome: Code(s): K58.9 - Irritable bowel syndrome without diarrhea Category: Medical Plan ROMANIAN #DON'T HAVE DTR TRANSLATE NEXT TIME [facility] She did not receive the carafate and although schedulers left msg she does not recall this. Walked to schedulers to get appt. Obviously she has not need better with her swallowing and we verify the pharmacy and will try we sending it. I will have my staff follow-up to see if there is any insurance coverage or other problems with getting this dispensed. Return office visit in 6 weeks to evaluate the Carafate Medications: Refilled sucralfate (Carafate) 10 mL PO QNOON 400 mL 6RF K20.90 - Esophagitis, unspecified without bleeding, K25.9 - Gastric ulcer, unspecified as acute or chronic, without hemorrhage or perforation EGD 06/02/2024 BIOPSY CORRESPONDENCE On 01/21/24 @ 14:42 Kaitlynn Soto Wrote To Helga Varghese Called pharmacy and they have it in stock and they're filling it for the PT. No PA needed. On 01/21/24 @ 13:25 Helga Varghese Wrote To Kaitlynn Soto Please call and see if they are able to get the liquid carafate to this patient adn advise. TODAY'S VISIT ROMANIAN #DON'T HAVE DTR TRANSLATE NEXT TIME; [facility] She is still having post prandial diarrhea, despite taking 1 tablespoon of carafate qafternoon. We will increase it to 3 tblsp qd. She also has chest bur praneeth despite taking lansoprazole daily There is confusion regarding when her EGD is and she thinks she is having a colonoscopy. She is not scheduled for colonoscopy only for an upper endoscopy on June 02. We clarify this with the schedulers. I do not want her to show up for something she is not scheduled for or 2 prep on necessarily so I think it was important that we clarify this. She would not be due for another colonoscopy she would not be due for another colonoscopy for screening until 2030 since she had 1 in 2020 that was negative and she has no family history. Keep 06/14 [facility]. [facility] Medical History (Updated 08/14/24 @ 17:17 by DOMENIC Kilpatrick) Irritable bowel syndrome Dysphagia Cough Pre-op examination Annual physical exam Overweight (BMI 25.0-29.9) Shingles Annual physical exam Neck pain Blood sugar increased Epigastric pain Colon cancer screening Annual physical exam CVA (cerebral vascular accident) Carpal tunnel syndrome Alcohol abuse Vitamin D deficiency COPD (chronic obstructive pulmonary disease) Cocaine abuse GERD (gastroesophageal reflux disease) Anemia Surgical History H/O colonoscopy History of esophagogastroduodenoscopy (EGD) Status post dilatation and curettage History of total abdominal hysterectomy and bilateral salpingo-oophorectomy Family History Father Heart attack Mother Colon cancer Paternal Grandfather No problems noted. Brother Colon cancer Heart attack Other FHx: mental illness Substance abuse Social History Housing: Apartment Alcohol intake: current Alcohol intake frequency: a few times a month Alcohol type: beer Comment: stopped [id number] Patient Tobacco Use Status: Never used Tobacco Tobacco use type: Cigarette e-Cigarette/Vaping Use: Never Used Second Hand Smoke Exposure: No service: No Current occupational status: unemployed Cognitive needs: No Hearing needs: No Vision needs: Yes Review of Systems Const Denies fatigue, Denies fever(s), Denies night sweats, Denies poor appetite and Denies weight loss ENT Reports Normal hearing present, Denies dental pain, Reports dysphagia, Denies hearing loss, Denies mouth pain, Denies odynophagia, Denies throat swelling, Denies tongue swelling and Reports other (Dentition adequate) Card Reports no additional complaints Resp Reports no additional complaints GI Details: Denies abdominal pain, Denies melena, Denies bloating, Denies hematochezia, Denies constipation, Denies GI cramping, Reports dysphagia, Denies excessive flatus, Denies early satiety, Reports heartburn, Reports diarrhea, Denies nausea, Denies odynophagia, Denies vomiting and Denies hematemesis Skin/Breast Denies pruritus, Denies lesions, Denies rash and Denies jaundice Neuro Reports Normal hearing present and Denies Abnormal speech present Endo Denies fatigue Aller/Immun Denies throat swelling and Denies tongue swelling Physical Exam Vital Signs: Last Vital Signs Pulse 71 03/16/24 10:27 BP 121/72 03/16/24 10:27 BMI result Body Mass Index 27.2 Const General: cooperative, no acute distress, well developed and well groomed Nutritional Appearance: average body habitus and well nourished Orientation/consciousness: oriented to person, oriented to place and oriented to time Limitations: language barrier HEENT Head: Yes normocephalic and Yes atraumatic Eyes General: appearance normal, both eyes and all related structures Pupils: Equal, round and reactive pupils present Neck Neck: Yes normal visual inspection and Yes no lymphadenopathy Thyroid: Thyroid normal Resp Effort & Inspection: normal respiratory effort and able to speak in complete sentences Auscultation: clear to auscultation bilaterally Cardio Rate: regular rate Rhythm: regular rhythm Heart sounds: Normal, physiologic split S2 sound present Peripheral pulses: radial pulses present and posterior tibial pulses present GI Inspection: No distended and No Abdominal panniculus present Palpation (GI): Soft to palpation, nontender, no guarding, not rigid and No hepatosplenomegaly present Percussion: Yes normal to percussion Auscultation: normal bowel sounds Rectal Exam - Female: deferred Skin General skin exam: no rashes or lesions noted, turgor normal, skin not dry, no jaundice, No spider nevi and no striae Rashes: no rashes Nails: normal Neuro General: oriented to person, oriented to place and oriented to time Cranial nerves: Yes Equal, round and reactive pupils present and Yes Normal hearing present Speech: No Abnormal speech present Extrem General: Yes normal to inspection, No clubbing, No cyanosis and No edema Psych Appearance: grossly normal and well kempt Mental Status: mental status grossly normal Speech and movement: Normal speech and movement present Affect: normal affect Attitude: cooperative Thought process: Normal thought process present and not confabulating Thought content: Normal thought content present Insight: Limited insight present (Psych) Judgement: Limited judgement present (Psych) Assessment & Plan Assessment & Plan (1) Dysphagia: Comment: Barium swallow December 2023. Laryngeal penetration is seen up to level the vocal cords. No subglottic or tracheal aspiration was identified. 2. Mild cricopharyngeal achalasia. 3. Granular appearance of the mid and distal esophageal mucosa that likely represents reflux esophagitis. 4. Mildly disorganized esophageal peristalsis. 5. Small type I hiatal hernia. 6. Significant gastroesophageal reflux. 7. Multiple tiny foci of contrast pooling in the fundus and body the stomach that may represent small superficial aphthous ulcers. Recommend correlation with EGD. 8. Possible mild thickening of the duodenal and proximal jejunal folds that could represent mild proximal enteritis. This could be artifactual, or conversely if real represent infectious or inflammatory enteritis, including malabsorption syndromes. Code(s): R13.10 - Dysphagia, unspecified Category: Medical (2) Esophagitis: Code(s): K20.90 - Esophagitis, unspecified without bleeding Category: Medical (3) Irritable bowel syndrome with diarrhea: Code(s): K58.0 - Irritable bowel syndrome with diarrhea Category: Medical Plan ROMANIAN #DON'T HAVE DTR TRANSLATE NEXT TIME; [facility] She is still having post prandial diarrhea, despite taking 1 tablespoon of carafate qafternoon. We will increase it to 3 tblsp qd. She also has chest burning despite taking lansoprazole daily There is confusion regarding when her EGD is and she thinks she is having a colonoscopy. She is not scheduled for colonoscopy only for an upper endoscopy on June 02. We clarify this with the schedulers. I do not want her to show up for something she is not scheduled for or 2 prep on necessarily so I think it was important that we clarify this. She would not be due for another colonoscopy she would not be due for another colonoscopy for screening until 2030 since she had 1 in 2020 that was negative and she has no family history. Keep 06/14 rov. EGD 06/02/2024 BIOPSY Medications: Changed From sucralfate (Carafate) 10 mL PO QNOON 400 mL 6RF K20.90 - Esophagitis, unspecified without bleeding, K25.9 - Gastric ulcer, unspecified as acute or chronic, without hemorrhage or perforation To sucralfate (Carafate) 30 mL PO QNOON 400 mL 6RF K20.90 - Esophagitis, unspecified without bleeding, K25.9 - Gastric ulcer, unspecified as acute or chronic, without hemorrhage or perforation Refilled lansoprazole 30 mg PO DAILY 30 caps 6RF K21.9 - Gastro-esophageal reflux disease without esophagitis, N28.9 - Disorder of kidney and ureter, unspecified dicyclomine 20 mg PO QID 360 tabs 1RF K58.9 - Irritable bowel syndrome without diarrhea Coding Level of Care Code Est Pt Level 3 (05013) Diagnoses Dysphagia R13.10 Esophagitis K20.90 Irritable bowel syndrome with diarrhea K58.0
[2024-03-16 10:27] VITALS: BP 121/72; PULSE 71; BMI 27.2
== END 2024-03-16 10:40 | disposition home or self-care (01) ==
PROVIDERS: PCP Internal Medicine; Visit Provider Nurse Practitioner
DX: R13.10 Dysphagia, unspecified (principal); K20.90 Esophagitis, unspecified without bleeding; K58.0 Irritable bowel syndrome with diarrhea
CPT/HCPCS: 99213

== ENCOUNTER → 2024-03-16 10:05 | Outpatient (BNVA) | payer OTHER, SELFPAY | PROVIDERS: PCP Internal Medicine; Visit Provider Nurse Practitioner | DX: K21.9 Gastro-esophageal reflux disease without esophagitis (principal); K25.9 Gastric ulcer, unspecified as acute or chronic, without hemorrhage or perforation; K58.0 Irritable bowel syndrome with diarrhea; K20.90 Esophagitis, unspecified without bleeding; R13.10 Dysphagia, unspecified | CPT/HCPCS: 99212 ==

== ENCOUNTER 2024-05-27 08:28 | Outpatient (REF) | payer OTHER, SELFPAY ==
[2024-05-27 09:18] LABS: Estimated Average Glucose 120 mg/dL; Hemoglobin A1c % 5.8 % (<6.0); Total Hemoglobin (HGBA1C) 3100.7285 umol/L
[2024-05-27 09:36] LABS: Alanine Aminotransferase 20 U/L (0-31); Albumin Level 4.3 g/dL (3.5-5.0); Alkaline Phosphatase 90 U/L (39-117); Anion Gap 10 (12-20); Aspartate Amino Transferase 26 U/L (5-31); Bilirubin Total 0.3 mg/dL (0.0-1.0); Blood Urea Nitrogen 18 mg/dL (9-16); Calcium 10.3 mg/dL (8.4-10.2); Carbon Dioxide 31 mmol/L (22-29); Chloride 105 mmol/L (96-108); Cholesterol 233 mg/dL (<200); Estimated Glomerular Filt Rate > 60; Glucose Random 104 mg/dL (60-115); HDL Cholesterol 72 mg/dL (>40); LDL Cholesterol Calculated 125 mg/dL (<100); Sodium 141 mmol/L (135-145); Total Protein 8.1 g/dL (6.5-8.0); Triglycerides 180 mg/dL (<150)
== END 2024-05-27 08:29 | disposition home or self-care (01) ==
LOC: HO.LAB 08:28
PROVIDERS: PCP Internal Medicine; Visit Provider Internal Medicine
DX: E78.00 Pure hypercholesterolemia, unspecified (principal); R73.01 Impaired fasting glucose
CPT/HCPCS: 36415; 80053; 80061; 83036

== ENCOUNTER 2024-06-02 05:55 | Day surgery (SDC) | payer OTHER, SELFPAY ==
[2024-05-30 14:03] VITALS: BMI 27.2
--- NOTE | 2024-06-01 09:11 | HO.ANESPROP2 ---
Documented by User: Kaycee Hernandez NP 06/01/24 09:17 HPI - Anesthesia Eval Consult details Narrative: 64yo F for Upper Endoscopy Hx polysub. PMFSH Active Problems Active Problems: All Active Problems Irritable bowel syndrome with diarrhea (Acute) Dysphagia (Acute) Esophagitis (Acute) Gastric ulcer (Acute) Impaired fasting blood sugar (Acute) Asthma (Acute) Periumbilical pain (Acute) Renal insufficiency (Acute) Hemoptysis (Acute) Obesity (BMI 30.0-34.9) (Acute) Allergic rhinitis (Acute) Overweight (BMI 25.0-29.9) (Acute) Hypertension (Acute) Generalized anxiety disorder (Acute) Polysubstance abuse (Acute) Recurrent major depression (Acute) Hypercholesterolemia (Acute) Diarrhea (Acute) Shoulder pain, bilateral (Acute) Overweight (Acute) COPD (chronic obstructive pulmonary disease) (Acute) GERD (gastroesophageal reflux disease) (Acute) Past Medical History Medical History Irritable bowel syndrome Dysphagia Cough Pre-op examination Annual physical exam Overweight (BMI 25.0-29.9) Shingles Annual physical exam Neck pain Blood sugar increased Epigastric pain Colon cancer screening Annual physical exam CVA (cerebral vascular accident) Carpal tunnel syndrome Alcohol abuse Vitamin D deficiency COPD (chronic obstructive pulmonary disease) Cocaine abuse GERD (gastroesophageal reflux disease) Anemia Family History Family History Father Heart attack Mother Colon cancer Paternal Grandfather No problems noted. Brother Colon cancer Heart attack Other FHx: mental illness Substance abuse Family history of problems with anesthesia: No Surgical History Surgical History H/O colonoscopy History of esophagogastroduodenoscopy (EGD) Status post dilatation and curettage History of total abdominal hysterectomy and bilateral salpingo-oophorectomy History of Problems with Anesthesia: No Social History Social History Housing: Apartment Alcohol intake: current Alcohol intake frequency: a few times a month Alcohol type: beer Comment: stopped [id number] Patient Tobacco Use Status: Former Tobacco user Tobacco use type: Cigarette e-Cigarette/Vaping Use: Never Used Second Hand Smoke Exposure: No Use of substances other than those prescribed or required for medical reasons: No Are you DNR?: No Advance Directives: No Advance Directives Information Provided: Yes Advance Directives on File: No Patient : No service: No Current occupational status: unemployed Cognitive needs: No Hearing needs: No Vision needs: Yes Meds Allergies Allergy/AdvReac Type Severity Reaction Status Date / Time No Known Drug Allergies Allergy Unknown none Verified 03/16/24 10:28 ENVIRONMENTAL Allergy Unknown ASTHMA Uncoded 03/16/24 10:28 Home Medications ?Medication ?Instructions ?Recorded ?Confirmed ?Last Taken ?Type clonazepam 1 mg tablet (Klonopin) 1 mg PO DAILY 09/27/20 10/09/23 Unknown History trazodone 100 mg tablet 100 mg PO BEDTIME PRN Insomnia 09/27/20 10/09/23 Unknown History Exam Height,Weight and Vital Signs: Height 5 ft 7 in Weight 78.925 kg Pertinent Lab Results Pertinent Lab Results: Laboratory Tests 01/12/24 05/27/24 09:32 08:42 WBC 7.4 Hgb 11.3 L Hct 32.8 L Plt Count 288 Sodium 141 Potassium 5.0 Chloride 105 Carbon Dioxide 31 H BUN 18 H Creatinine 0.93 Assessment and Plan Assessment Anesthesia Assessment: Chart Reviewed Final Anesthetic Review Family History of Problems with Anesthesia: No History of Problems with Anesthesia: No Documented by User: Erin Hui MD 06/02/24 08:15 [facility] Past Medical History Medical History Irritable bowel syndrome Dysphagia Cough Pre-op examination Annual physical exam Overweight (BMI 25.0-29.9) Shingles Annual physical exam Neck pain Blood sugar increased Epigastric pain Colon cancer screening Annual physical exam CVA (cerebral vascular accident) Carpal tunnel syndrome Alcohol abuse Vitamin D deficiency COPD (chronic obstructive pulmonary disease) Cocaine abuse GERD (gastroesophageal reflux disease) Anemia Family History Family History Father Heart attack Mother Colon cancer Paternal Grandfather No problems noted. Brother Colon cancer Heart attack Other FHx: mental illness Substance abuse Surgical History Surgical History H/O colonoscopy History of esophagogastroduodenoscopy (EGD) Status post dilatation and curettage History of total abdominal hysterectomy and bilateral salpingo-oophorectomy Social History Social History Housing: Apartment Alcohol intake: current Alcohol intake frequency: a few times a month Alcohol type: beer Comment: stopped /2023 Patient Tobacco Use Status: Former Tobacco user Tobacco use type: Cigarette e-Cigarette/Vaping Use: Never Used Second Hand Smoke Exposure: No Use of substances other than those prescribed or required for medical reasons: No Are you DNR?: No Advance Directives: No Advance Directives Information Provided: Yes Advance Directives on File: No Patient : No service: No Current occupational status: unemployed Cognitive needs: No Hearing needs: No Vision needs: Yes Meds Allergies Allergy/AdvReac Type Severity Reaction Status Date / Time No Known Drug Allergies Allergy Unknown none Verified 03/16/24 10:28 ENVIRONMENTAL Allergy Unknown ASTHMA Uncoded 03/16/24 10:28 Home Medications ?Medication ?Instructions ?Recorded ?Confirmed ?Last Taken ?Type clonazepam 1 mg tablet (Klonopin) 1 mg PO DAILY 09/27/20 10/09/23 Unknown History trazodone 100 mg tablet 100 mg PO BEDTIME PRN Insomnia 09/27/20 10/09/23 Unknown History Exam Airway Mallampati Class: II TM Dist: >3cm Heart: rrr Lungs: cta Assessment and Plan Assessment Anesthesia Assessment: Anesthesia Plan Discussed Final Anesthetic Review NPO: Yes ASA Class: III Final Preanesthetic Review: No Changes in Pt Med Stat, Meds/Allgs Chart Reviewed, Consent Obtained/Reviewed and Anes Risks/Benef Reviewed Patient Risk: Intermediate Procedure Risk: Low Anesthetic Plan Anesthetic Plan: MAC: Disposition: Standard PACU
[2024-06-02 06:23] VITALS: BMI 28.3
[2024-06-02 06:33] VITALS: BP 124/72; PULSE 75; RESP 16; TEMP 36.3; O2SAT 96
[2024-06-02 06:46] LABS: Amphetamine Screen Urine Not Detected (Not Detect); Barbiturates, Urine Not Detected (Not Detect); Benzodiazepines Screen Urine Not Detected (Not Detect); Buprenorphine Scr Not Detected (Not Detect); Cannabinoid Screen Urine Not Detected (Not Detect); Cocaine Screen Urine Not Detected (Not Detect); Fentanyl, urine Not Detected (Not Detect); Methadone Screen, Urine Not Detected (Not Detect); Opiate Screen Urine Not Detected (Not Detect); Oxycodone Screen Urine Not Detected (Not Detect); Phencyclidine Screen Urine Not Detected (Not Detect)
[2024-06-02] MEDS: Lactated Ringers 1,000 ML 80 ML IVCONT (07:01)
--- NOTE | 2024-06-02 07:54 | MHC.SHP ---
Pre-Procedural Eval Section A - 24 Hr Update-Section A only Date of Service: 06/02/24 Section B - Complete if H&P > 30 days Chief Complaint: Dysphagia, abnormal barium swallow Details of Present Illness: Irritable bowel syndrome Dysphagia Cough Pre-op examination Annual physical exam Overweight (BMI 25.0-29.9) Shingles Annual physical exam Neck pain Blood sugar increased Epigastric pain Colon cancer screening Annual physical exam CVA (cerebral vascular accident) Carpal tunnel syndrome Alcohol abuse Vitamin D deficiency COPD (chronic obstructive pulmonary disease) Cocaine abuse GERD (gastroesophageal reflux disease) Anemia Surgical History H/O colonoscopy History of esophagogastroduodenoscopy (EGD) Status post dilatation and curettage History of total abdominal hysterectomy and bilateral salpingo-oophorectomy Allergies: Allergies Allergy/AdvReac Type Severity Reaction Status Date / Time No Known Drug Allergies Allergy Unknown none Verified 03/16/24 10:28 ENVIRONMENTAL Allergy Unknown ASTHMA Uncoded 03/16/24 10:28 Review of Systems Review of Systems Comment: 10 Point ROS negative Exam Exam Comment: Gen appear: No acute distress HEENT: no icterus Chest: No overt resp distress Abd: soft, nontender, nondistended Psych: Stable affect, answering questions appropriately Neuro: A/Ox3 noted to move all extremities spontaneously Ext: no peripheral edema Plan Diagnosis/Plan: Unchanged I have reviewed the history and physical and performed a pertinent physical examination on my patient. No changes have occurred unless specified. Time Spent With Patient Time: Total time managing care of this patient today ____ minutes.
--- NOTE | 2024-06-02 08:58 | P.OP_ITS ---
Operative Note Operative Note Date of Service: 06/02/24 Narrative: Procedure: Esophagogastroduodenoscopy Endoscopist: Diana Domingo MD Indication: Dysphagia Anesthesia Provider: Minerva Zapata CRNA Anesthesia Type: MAC ?? EGD Procedure:?? The procedure, indications, preparation and potential complications were reviewed with the patient, who indicated understanding and gave written informed consent to proceed with the help of a platform stapler. A physical exam was performed. The endoscope was introduced through the mouth, and advanced to the second part of duodenum. The mucosa was carefully examined on slow withdrawal of the endoscope. The patient tolerated the procedure well. There were no immediate complications.? ? EGD Findings:? * Esophagus:? Normal mucosa noted in the entire esophagus. The Z line was at 38 cm and irregular to 37 cm. Cold forceps biopsies were taken to rule out Barretts esophagus. * Stomach:? Congestion erythema was noted in the antrum. Retroflexion was performed in the cardia. Random cold forceps gastric biopsies were taken to rule out H Pylori infection. * Duodenum:? Normal mucosa was noted in the whole of the examined duodenum. Cold forceps biopsies were taken from duodenal bulb and second portion of the duodenum to rule out celiac sprue. Additional intervention: A soft tipped Savary wire was advanced through the biopsy channel of the gastroscope and left in the antrum. The gastroscope was backed out. Savary Pau bougie was advanced over the guidewire and the esophagus was dilated to 18 mm. No resistance was felt. No heme or tear was noted on relook. ? EGD Impressions:? * Irregular Z line (biopsy) * Gastritis (biopsy) * Normal duodenum (biopsy) ?? Recommendations:?? * Follow biopsy results. Our office will call or send a letter with results within 7-10 days. * Continue PPI therapy. * If H pylori +, patient will be prescribed eradication therapy followed by test of cure. * Avoid NSAIDs and smoking. * Repeat endoscopy will be contingent on presence and extent of Campbell's esophagus. Above has been reviewed with the patient.
[2024-06-02 09:05] VITALS: BP 118/65; PULSE 100; RESP 16; TEMP 36.3; O2SAT 96
[2024-06-02 09:20] VITALS: BP 126/64; PULSE 90; RESP 18; TEMP 36.9; O2SAT 98
== END 2024-06-02 09:39 | disposition home or self-care (01) ==
PROVIDERS: Nurse Practitioner; PCP Internal Medicine; Visit Provider Internal Medicine
PROC: 0DJ08ZZ Inspection of Upper Intestinal Tract, Via Natural or Artificial Opening Endoscopic (ICD-10-PCS; CPT 43235; principal; 2024-06-02 07:40)
DX: K29.60 Other gastritis without bleeding (principal); K22.9 Disease of esophagus, unspecified; R13.10 Dysphagia, unspecified; K21.9 Gastro-esophageal reflux disease without esophagitis; I10 Essential (primary) hypertension; E78.00 Pure hypercholesterolemia, unspecified; F41.1 Generalized anxiety disorder; J45.909 Unspecified asthma, uncomplicated; F14.10 Cocaine abuse, uncomplicated; F19.10 Other psychoactive substance abuse, uncomplicated; Z86.73 Personal history of transient ischemic attack (TIA), and cerebral infarction without residual deficits; Z87.891 Personal history of nicotine dependence; Z79.899 Other long term (current) drug therapy
CPT/HCPCS: 43249; 43239; 80307; 88305; 88342; J1100; J1596; J2003; J2704

== ENCOUNTER → 2024-06-02 05:55 | Outpatient (BNV) | payer OTHER, SELFPAY | PROVIDERS: PCP Internal Medicine; Visit Provider Internal Medicine | DX: R13.10 Dysphagia, unspecified (principal); K29.70 Gastritis, unspecified, without bleeding | CPT/HCPCS: 43239; 43245 ==

== ENCOUNTER 2024-06-03 09:03 | Outpatient (AMB) | payer OTHER, SELFPAY ==
--- NOTE | 2024-06-03 09:09 | MHC.PC.OV ---
Vital Signs 06/03/24 09:11 Height 5 ft 6 in Weight 175 lb 2 oz BMI 28.3 BP 110/70 Blood Pressure Location Lt brachial Position Sitting Pulse 66 Pulse Source Pulse Oximeter Pulse Oximetry (%) 97 Oxygen Delivery Method Room Air Intake Visit Reasons: HTN, Gastric Ulcer Intake Note: Patient is here to follow up on HTN, Gastric Ulcer and lab results. Digital Measurement Advisor Required: Yes Digital Measurement Advisor Language: Key Ringer Name: Mary Jane (Daughter) Information Interpreted: non-clinical & clinical Precision Jig Grinder: Present Accompanied by: Daughter Allergies No Known Drug Allergies Allergy (Unknown, Verified 06/03/24 09:10) none ENVIRONMENTAL Allergy (Unknown, Uncoded 06/03/24 09:10) ASTHMA Tobacco use date assessed: 06/03/24 Fall risk assessment: No Falls in past year Last assessed Fall Risk: 06/03/24 Dental Screening Dental Screen Date: 10/09/23 HPI HTN, Gastric Ulcer HPI Details 64-year-old overweight female with a history of ulcers gastric impaired glucose tolerance hypertension generalized anxiety disorder hypercholesterolemia and COPD last seen in 01/21/2024. Patient's mammogram is up-to-date bone density is up-to-date. The last colonoscopy was done in 2020. Patient had an EGD done 06/02/2024 showing irregular Z-line/gastritis with normal duodenum. [facility] Medical History Irritable bowel syndrome Dysphagia Cough Pre-op examination Annual physical exam Overweight (BMI 25.0-29.9) Shingles Annual physical exam Neck pain Blood sugar increased Epigastric pain Colon cancer screening Annual physical exam CVA (cerebral vascular accident) Carpal tunnel syndrome Alcohol abuse Vitamin D deficiency COPD (chronic obstructive pulmonary disease) Cocaine abuse GERD (gastroesophageal reflux disease) Anemia Surgical History H/O colonoscopy History of esophagogastroduodenoscopy (EGD) Status post dilatation and curettage History of total abdominal hysterectomy and bilateral salpingo-oophorectomy Family History Father Heart attack Mother Colon cancer Paternal Grandfather No problems noted. Brother Colon cancer Heart attack Other FHx: mental illness Substance abuse Social History Housing: Apartment Alcohol intake: current Alcohol intake frequency: a few times a month Alcohol type: beer Comment: stopped [id number] Patient Tobacco Use Status: Former Tobacco user Tobacco use type: Cigarette e-Cigarette/Vaping Use: Never Used Second Hand Smoke Exposure: No service: No Current occupational status: unemployed Cognitive needs: No Hearing needs: No Vision needs: Yes Questionnaire Thrive Questionnaire Date Thrive assessed: 10/09/23 MARIA EUGENIA-7 AMB Questionnaire MARIA EUGENIA-7 Date MARIA EUGENIA - 7 assessed: 10/09/23 Source: Developed by Drs. Joseph Bach, Candace Rogers, Kristofer Naqvi and colleagues, with an educational steven from [employer]. Physical exam (Primary Care) Vital Signs: Last Vital Signs Pulse 66 06/03/24 09:11 BP 110/70 06/03/24 09:11 Pulse Ox 97 06/03/24 09:11 Oxygen Delivery Method Room Air 06/03/24 09:11 BMI result Body Mass Index 28.3 Tobacco/Smoking Status: Tobacco use Status Tobacco use date assessed 06/03/24 06/03/24 09:17 Patient Tobacco Use Status Former Tobacco user 06/03/24 09:17 Tobacco use type Cigarette 06/03/24 09:17 e-Cigarette/Vaping Use Never Used 06/03/24 09:17 Thrive Assessment: Date of Thrive Assessment Date Thrive assessed 10/09/23 06/03/24 09:17 Const General: alert; No acute distress Eyes Conjunctivae: conjunctivae normal Resp Auscultation: clear to auscultation bilaterally Cardio Rate: regular rate Rhythm: regular rhythm GI Inspection: Yes normal to inspection Extrem General: Yes normal to inspection and No edema Office Procedures Flu Questionnaire Does the patient have a severe egg allergy?: No Does the patient have severe life threatening allergies?: No Does the patient have a fever or illness today?: No Has the patient ever had Guillain-[place] Syndrome?: No Has the patient ever had any past reaction to a flu shot?: No Immunizations Fluarix Triv [id number] (PF) 45 mcg (15 mcg x 3)/0.5 mL IM syringe Performing Provider: Hilda Burroughs MD Performing Location: [facility] [place] [facility] Administered by: BRAVO Pabon on 06/03/24 09:33 Dose Route Admin Location Dispensed Lot Number Expiration Date FORMERLY NAMED [facility] [place] 0.5 mL IM Left Deltoid 0.5 mL [id number] 01/30/25 37161-807-92 [employer] VIS Given Date VIS Provided VIS Publication Date 06/03/24 Single Vaccine 21 Eligibility Eligibility Date Funding Source Not [facility] Eligible 06/03/24 Private Coding Level of Care Code Est Pt Level 4 (24098) Complex EM visit Add On G2211 Diagnoses Gastric ulcer K25.9 Impaired fasting blood sugar R73.01 Overweight (BMI 25.0-29.9) E66.3 Primary hypertension I10 Hypertension type: primary hypertension Moderate episode of recurrent major depressive disorder F33.1 Active/Remission status: currently active Major depression episode severity: moderate Hypercholesterolemia E78.00 Pulmonary emphysema, unspecified emphysema type J43.9 COPD type: emphysema Emphysema type: unspecified Assessment & Plan Assessment & Plan (1) Gastric ulcer: Code(s): K25.9 - Gastric ulcer, unspecified as acute or chronic, without hemorrhage or perforation Category: Medical Plan: EGD done 06/02/2024 with results of the biopsy pending. Avoid the foods that causes that usually spicy foods, tomato products, juices, coffee, soda and foods that your sensitive to. After eating do not lie down, allow 3-4 hours before in lie down. And keep the head of bed above 30 degrees to avoid the acid from going up. (2) Impaired fasting blood sugar: Code(s): R73.01 - Impaired fasting glucose Category: Medical Plan: Decrease the amount of carbohydrate intake, pasta, bread, rice and potatoes are all sugar and that is aside from all the sweet stuff, remember that fruits are good but they are Sweet also. (3) Overweight (BMI 25.0-29.9): Code(s): E66.3 - Overweight Category: Medical Plan: Diet and exercise (4) Hypertension: Code(s): I10 - Essential (primary) hypertension Category: Medical Qualifiers: Hypertension type: primary hypertension Qualified Code(s): I10 - Essential (primary) hypertension Plan: Continue with blood pressure medication. Decrease salt intake and exercise patient on lisinopril 10 mg once a day (5) Recurrent major depression: Comment: [facility] Counseling Code(s): F33.9 - Major depressive disorder, recurrent, unspecified Category: Medical Qualifiers: Active/Remission status: currently active Major depression episode severity: moderate Qualified Code(s): F33.1 - Major depressive disorder, recurrent, moderate Plan: Continue with counseling and therapy (6) Hypercholesterolemia: Code(s): E78.00 - Pure hypercholesterolemia, unspecified Category: Medical Plan: Avoid fried foods, chicken skin, eggs, butter margarine, pastries and meat. Be it pork or beef they have a lot of cholesterol on simvastatin 20 mg once a day LDL goal less than 130 and triglyceride of less than 150 (7) COPD (chronic obstructive pulmonary disease): Code(s): J44.9 - Chronic obstructive pulmonary disease, unspecified Category: Medical Qualifiers: COPD type: emphysema Emphysema type: unspecified Qualified Code(s): J43.9 - Emphysema, unspecified Plan: Continue with the Advair and rinse mouth after using, continue with albuterol inhaler as needed Orders: Orders Complete Blood Count Auto Diff 4 Months I10 - Essential (primary) hypertension Thyroid Stimulating Hormone 4 Months I10 - Essential (primary) hypertension Lipid Panel 4 Months E78.00 - Pure hypercholesterolemia, unspecified, I10 - Essential (primary) hypertension Hemoglobin A1c 4 Months I10 - Essential (primary) hypertension Vitamin B12 and Folate 4 Months I10 - Essential (primary) hypertension UA CC w/rflx Micro + Cult 4 Months I10 - Essential (primary) hypertension, R30.0 - Dysuria Influenza [id number] Immunization Today Z23 - Encounter for immunization Comprehensive Met. Panel 4 Months I10 - Essential (primary) hypertension Free T4 (Free Thyroxine) 4 Months I10 - Essential (primary) hypertension Vitamin D 25-OH Total 4 Months I10 - Essential (primary) hypertension Ferritin 4 Months I10 - Essential (primary) hypertension IRON PROFILE 4 Months I10 - Essential (primary) hypertension Reticulocyte Count 4 Months I10 - Essential (primary) hypertension
[2024-06-03 09:11] VITALS: BP 110/70; PULSE 66; O2SAT 97; BMI 28.3
== END 2024-06-03 10:22 | disposition home or self-care (01) ==
LOC: HO.HMCH 09:03
PROVIDERS: PCP Internal Medicine; Visit Provider Internal Medicine
DX: K25.9 Gastric ulcer, unspecified as acute or chronic, without hemorrhage or perforation (principal); F33.1 Major depressive disorder, recurrent, moderate; J43.9 Emphysema, unspecified; R73.01 Impaired fasting glucose; E66.3 Overweight; I10 Essential (primary) hypertension; E78.00 Pure hypercholesterolemia, unspecified

== ENCOUNTER → 2024-06-03 09:03 | Outpatient (BNVA) | payer OTHER, SELFPAY | PROVIDERS: PCP Internal Medicine; Visit Provider Internal Medicine | DX: Z23 Encounter for immunization (principal); K52.9 Noninfective gastroenteritis and colitis, unspecified; R73.01 Impaired fasting glucose; E66.3 Overweight; I10 Essential (primary) hypertension; F33.1 Major depressive disorder, recurrent, moderate; E78.00 Pure hypercholesterolemia, unspecified; J43.9 Emphysema, unspecified | CPT/HCPCS: 90471; 90656; 99212 ==

== ENCOUNTER 2024-06-14 08:53 | Outpatient (REF) | payer OTHER, SELFPAY ==
[2024-06-14 12:22] LABS: C Reactive Protein 0.39 mg/dL (< or = 0.50)
[2024-06-16 20:04] LABS: Transglutaminase Ab IgG 3.3 U/mL; Transglutaminase IgA <1.0 U/mL
== END 2024-06-14 08:54 | disposition home or self-care (01) ==
LOC: HO.LAB 08:53
PROVIDERS: PCP Internal Medicine; Visit Provider Nurse Practitioner
DX: K58.0 Irritable bowel syndrome with diarrhea (principal); K22.70 Barrett's esophagus without dysplasia; R13.10 Dysphagia, unspecified; K21.9 Gastro-esophageal reflux disease without esophagitis
CPT/HCPCS: 36415; 86003; 86140; 86364; 99212

== ENCOUNTER 2024-06-14 08:53 | Outpatient (AMB) | payer OTHER, SELFPAY ==
--- NOTE | 2024-06-14 09:03 | MHC.OFFVIS ---
Vital Signs 06/14/24 09:11 Height 5 ft 6 in Weight 176 lb 5.917 oz BMI 28.5 BP 133/75 Blood Pressure Location Lt brachial Position Sitting Pulse 74 Intake Visit Reasons: S/P EGD; Dr. Domingo Intake Note: Eliza presents to in office follow up s/p EGD. CC: Patient c/o lower abdominal pain, esophageal pain, and heartburn. Patient reports loose BM after eating. Bevel Mill Operator Required: Yes Bevel Mill Operator Name: daughter Accompanied by: Daughter Allergies No Known Drug Allergies Allergy (Unknown, Verified 07/05/24 10:43) none ENVIRONMENTAL Allergy (Unknown, Uncoded 06/03/24 09:10) ASTHMA HPI HPI S/P EGD; Dr. Domingo: Details: Assessment & Plan (1) Dysphagia: Comment: Barium swallow December 2023. Laryngeal penetration is seen up to level the vocal cords. No subglottic or tracheal aspiration was identified. 2. Mild cricopharyngeal achalasia. 3. Granular appearance of the mid and distal esophageal mucosa that likely represents reflux esophagitis. 4. Mildly disorganized esophageal peristalsis. 5. Small type I hiatal hernia. 6. Significant gastroesophageal reflux. 7. Multiple tiny foci of contrast pooling in the fundus and body the stomach that may represent small superficial aphthous ulcers. Recommend correlation with EGD. 8. Possible mild thickening of the duodenal and proximal jejunal folds that could represent mild proximal enteritis. This could be artifactual, or conversely if real represent infectious or inflammatory enteritis, including malabsorption syndromes. Code(s): R13.10 - Dysphagia, unspecified Category: Medical (2) Esophagitis: Code(s): K20.90 - Esophagitis, unspecified without bleeding Category: Medical (3) Irritable bowel syndrome with diarrhea: Code(s): K58.0 - Irritable bowel syndrome with diarrhea Category: Medical Plan DANISH #DON'T HAVE DTR TRANSLATE NEXT TIME; Soledad Live She is still having post prandial diarrhea, despite taking 1 tablespoon of carafate qafternoon. We will increase it to 3 tblsp qd. She also has chest burning despite taking lansoprazole daily There is confusion regarding when her EGD is and she thinks she is having a colonoscopy. She is not scheduled for colonoscopy only for an upper endoscopy on June 02. We clarify this with the schedulers. I do not want her to show up for something she is not scheduled for or 2 prep on necessarily so I think it was important that we clarify this. She would not be due for another colonoscopy she would not be due for another colonoscopy for screening until 2030 since she had 1 in 2020 that was negative and she has no family history. Keep 06/14 rov. Medications: Changed From sucralfate (Carafate) 10 mL PO QNOON 400 mL 6RF K20.90 - Esophagitis, unspecified without bleeding, K25.9 - Gastric ulcer, unspecified as acute or chronic, without hemorrhage or perforation To sucralfate (Carafate) 30 mL PO QNOON 400 mL 6RF K20.90 - Esophagitis, unspecified without bleeding, K25.9 - Gastric ulcer, unspecified as acute or chronic, without hemorrhage or perforation Refilled lansoprazole 30 mg PO DAILY 30 caps 6RF K21.9 - Gastro-esophageal reflux disease without esophagitis, N28.9 - Disorder of kidney and ureter, unspecified dicyclomine 20 mg PO QID 360 tabs 1RF K58.9 - Irritable bowel syndrome without diarrhea EGD 06/02/24 EGD Findings:? Esophagus:? Normal mucosa noted in the entire esophagus. The Z line was at 38 cm and irregular to 37 cm. Cold forceps biopsies were taken to rule out Barretts esophagus. Stomach:? Congestion erythema was noted in the antrum. Retroflexion was performed in the cardia. Random cold forceps gastric biopsies were taken to rule out H Pylori infection. Duodenum:? Normal mucosa was noted in the whole of the examined duodenum. Cold forceps biopsies were taken from duodenal bulb and second portion of the duodenum to rule out celiac sprue. Additional intervention: A soft tipped Savary wire was advanced through the biopsy channel of the gastroscope and left in the antrum. The gastroscope was backed out. Savary Pau bougie was advanced over the guidewire and the esophagus was dilated to 18 mm. No resistance was felt. No heme or tear was noted on relook. ? EGD Impressions:? Irregular Z line (biopsy) Gastritis (biopsy) Normal duodenum (biopsy)?? Recommendations:?? Follow biopsy results. Our office will call or send a letter with results within 7-10 days. Continue PPI therapy. If H pylori +, patient will be prescribed eradication therapy followed by test of cure. Avoid NSAIDs and smoking. Repeat endoscopy will be contingent on presence and extent of Campbell's esophagus. BIOPSY Received: 06/02/24 ADDENDUM REPORT Addendum Addendum #1 Immunostain for H. pylori on B is negative. Control stains appropriately. Electronically Signed By: Margot Hanson 06/06/24 [id number] Diagnosis A. Duodenum, biopsy: Duodenal mucosa with preserved villi and no specific change. B. Gastric antrum, biopsy: Gastric antral mucosa with minimal chronic inactive gastritis and focal intestinal metaplasia, and gastric body mucosa with minimal chronic inactive gastritis without intestinal metaplasia, and features suggesting proton pump inhibitor effect; negative for dysplasia. C. Labeled Z-line , biopsy: Squamocolumnar mucosa with mild chronic inflammation and focal intestinal metaplasia; negative for dysplasia (see comment). Comment: (B): Immunostain for H. pylori pending; addendum to follow. (C): These findings are consistent with Campbell?s esophagus if the biopsies were taken from above the anatomic gastroesophageal junction. Clinical and endoscopic correlation is advised CORRESPONDENCE On 06/07/24 @ 10:30 Sandy Duggan Wrote To Halima Sandy Duggan removed from item. On 06/07/24 @ 08:36 Barb Trinidad Wrote To Halima (2) Called patient back after leaving a [facility] that I did not have her scheduled on 06/08 and to call back at her earliest convenience. Also that I was cancelling her appt. on 06/14 at 9:15 unless she still wants to see her and to let me know. On 06/03/24 @ 13:19 Sandy Duggan Wrote To Sandy Duggan patient lvm - stating she needs the miralax ordered for colonoscopy on 06/08. called patient left message stating she does not have any appts/ procedures, colonoscopy on 06/08. Her next appt 06/14 915 with Helga Varghese Please call office back [phone] Sandy Duggan completed item. On 01/21/24 @ 14:42 Kaitlynn Soto Wrote To Helga Varghese Called pharmacy and they have it in stock and they're filling it for the PT. No PA needed. On 01/21/24 @ 13:25 Helga Varghese Wrote To Kaitlynn Soto Please call and see if they are able to get the liquid carafate to this patient adn advise. TODAY'S VISIT DANISH #DON'T HAVE DTR TRANSLATE NEXT TIME...Barb Live She still had intermittent diarrhea that varies day to day. I notice she had a marginally elevated TTGA, and since the increase of carafate is not working I think we need to more fully consider food allergies. RAST and repeat TTGA. She also continues on her lansoprazole and dicyclomine. ROV 3 weeks. [facility] Medical History Gastric ulcer Esophagitis Irritable bowel syndrome Dysphagia Cough Pre-op examination Annual physical exam Overweight (BMI 25.0-29.9) Shingles Annual physical exam Neck pain Blood sugar increased Epigastric pain Colon cancer screening Annual physical exam CVA (cerebral vascular accident) Carpal tunnel syndrome Alcohol abuse Vitamin D deficiency COPD (chronic obstructive pulmonary disease) Cocaine abuse GERD (gastroesophageal reflux disease) Anemia Surgical History H/O colonoscopy History of esophagogastroduodenoscopy (EGD) Status post dilatation and curettage History of total abdominal hysterectomy and bilateral salpingo-oophorectomy Family History Father Heart attack Mother Colon cancer Paternal Grandfather No problems noted. Brother Colon cancer Heart attack Other FHx: mental illness Substance abuse Social History Housing: Apartment Alcohol intake: current Alcohol intake frequency: a few times a month Alcohol type: beer Comment: stopped [id number]/2023 Patient Tobacco Use Status: Former Tobacco user Tobacco use type: Cigarette e-Cigarette/Vaping Use: Never Used Second Hand Smoke Exposure: No service: No Current occupational status: unemployed Cognitive needs: No Hearing needs: No Vision needs: Yes Review of Systems Const Denies fatigue, Denies fever(s), Denies night sweats, Denies poor appetite and Denies weight loss ENT Reports Normal hearing present, Denies dental pain, Denies dysphagia, Denies hearing loss, Denies mouth pain, Denies odynophagia, Denies throat swelling, Denies tongue swelling and Reports other (Dentition adequate) Card Reports no additional complaints Resp Reports no additional complaints GI Details: Denies abdominal pain, Denies melena, Denies bloating, Denies hematochezia, Denies constipation, Denies GI cramping, Denies dysphagia, Denies excessive flatus, Denies early satiety, Reports heartburn, Reports diarrhea, Denies nausea, Denies odynophagia, Denies vomiting and Denies hematemesis Skin/Breast Denies pruritus, Denies lesions, Denies rash and Denies jaundice Neuro Reports Normal hearing present and Denies Abnormal speech present Endo Denies fatigue Aller/Immun Denies throat swelling and Denies tongue swelling Physical Exam Vital Signs: Last Vital Signs Pulse 74 06/14/24 09:11 BP 133/75 06/14/24 09:11 BMI result Body Mass Index 28.5 Const General: cooperative, no acute distress, well developed and well groomed Nutritional Appearance: average body habitus and well nourished Orientation/consciousness: oriented to person, oriented to place and oriented to time Limitations: language barrier HEENT Head: Yes normocephalic and Yes atraumatic Eyes General: appearance normal, both eyes and all related structures Pupils: Equal, round and reactive pupils present Neck Neck: Yes normal visual inspection and Yes no lymphadenopathy Thyroid: Thyroid normal Resp Effort & Inspection: normal respiratory effort and able to speak in complete sentences Auscultation: clear to auscultation bilaterally Cardio Rate: regular rate Rhythm: regular rhythm Heart sounds: Normal, physiologic split S2 sound present Peripheral pulses: radial pulses present and posterior tibial pulses present GI Inspection: No distended, No Abdominal panniculus present and Yes obesity Palpation (GI): Soft to palpation, nontender, no guarding, not rigid and No hepatosplenomegaly present Percussion: Yes normal to percussion Auscultation: normal bowel sounds Rectal Exam - Female: deferred Skin General skin exam: no rashes or lesions noted, turgor normal, skin not dry, no jaundice, No spider nevi and no striae Rashes: no rashes Nails: normal Neuro General: oriented to person, oriented to place and oriented to time Cranial nerves: Yes Equal, round and reactive pupils present and Yes Normal hearing present Speech: No Abnormal speech present Extrem General: Yes normal to inspection, No clubbing, No cyanosis and No edema Psych Appearance: grossly normal and well kempt Mental Status: mental status grossly normal Speech and movement: Normal speech and movement present Affect: normal affect Attitude: cooperative Thought process: Normal thought process present and not confabulating Thought content: Normal thought content present Insight: Limited insight present (Psych) Judgement: Limited judgement present (Psych) Assessment & Plan Assessment & Plan (1) Irritable bowel syndrome with diarrhea: Code(s): K58.0 - Irritable bowel syndrome with diarrhea Category: Medical (2) Campbell's esophagus determined by biopsy: Code(s): K22.70 - Campbell's esophagus without dysplasia Category: Medical (3) Dysphagia: Comment: Barium swallow December 2023. Laryngeal penetration is seen up to level the vocal cords. No subglottic or tracheal aspiration was identified. 2. Mild cricopharyngeal achalasia. 3. Granular appearance of the mid and distal esophageal mucosa that likely represents reflux esophagitis. 4. Mildly disorganized esophageal peristalsis. 5. Small type I hiatal hernia. 6. Significant gastroesophageal reflux. 7. Multiple tiny foci of contrast pooling in the fundus and body the stomach that may represent small superficial aphthous ulcers. Recommend correlation with EGD. 8. Possible mild thickening of the duodenal and proximal jejunal folds that could represent mild proximal enteritis. This could be artifactual, or conversely if real represent infectious or inflammatory enteritis, including malabsorption syndromes. Code(s): R13.10 - Dysphagia, unspecified Category: Medical (4) GERD (gastroesophageal reflux disease): Code(s): K21.9 - Gastro-esophageal reflux disease without esophagitis Category: Medical Plan DANISH #DON'T HAVE DTR TRANSLATE NEXT TIME...Barb Live She still had intermittent diarrhea that varies day to day. I notice she had a marginally elevated TTGA, and since the increase of carafate is not working I think we need to more fully consider food allergies. RAST and repeat TTGA. She also continues on her lansoprazole and dicyclomine. ROV 3 weeks. Orders: Orders Rast Allergen 06/14/24 K58.0 - Irritable bowel syndrome with diarrhea Transglutaminase IgA 06/14/24 K58.0 - Irritable bowel syndrome with diarrhea Transglutaminase Ab IgG 06/14/24 K58.0 - Irritable bowel syndrome with diarrhea C Reactive Protein 06/14/24 K58.0 - Irritable bowel syndrome with diarrhea Coding Level of Care Code Est Pt Level 3 (70174) Diagnoses Irritable bowel syndrome with diarrhea K58.0 Campbell's esophagus determined by biopsy K22.70 Dysphagia R13.10 GERD (gastroesophageal reflux disease) K21.9
[2024-06-14 09:11] VITALS: BP 133/75; PULSE 74; BMI 28.5
== END 2024-06-14 10:40 | disposition home or self-care (01) ==
PROVIDERS: PCP Internal Medicine; Visit Provider Nurse Practitioner
DX: K58.0 Irritable bowel syndrome with diarrhea (principal); K22.70 Barrett's esophagus without dysplasia; R13.10 Dysphagia, unspecified; K21.9 Gastro-esophageal reflux disease without esophagitis
CPT/HCPCS: 99213

== ENCOUNTER 2024-10-19 15:08 | Outpatient (REF) | payer OTHER, SELFPAY ==
--- OUTSIDE RECORDS SUMMARY | 2024-10-19 17:10 | XMS_ITS | Clinical Summary ---
Author Organization [facility] Address [address] [place] [address] Care Team Providers Care Toaster Operator Name Role Phone Unavailable Primary Care Provider Unavailabl e Source Comments PLEASE NOTE, if this patient is a minor, it may be UNLAWFUL to discuss sensitive information that is contained in these records (such as FAMILY PLANNING, MENTAL HEALTH or SUBSTANCE ABUSE) with the minor patient's parent or other person without the patient's specific authorization.[facility] Allergies No known active allergies Medications No known medications Active Problems No known active problems Encounters Date Type Department Care Team Description 09/15/2024 11:00 AM EST Office Visit [facility] [address] [place] [phone] Brennan Varma DDS Extruded tooth (Primary Dx) from Last 3 Months Social History Tobacco Use Types Packs/Day Years Used Date Smoking Tobacco: Former Cigarettes Smokeless Tobacco: Never Tobacco Cessation:Counseling Given: Not Answered Social Connections Answer Date Recorded Connectedness 0 04/18/2024 Financial Resource Strain Answer Date R ecorded Financial Resource Strain 0 2023 Stress Answer Date Recorded Stress 0 12/23/2023 Physical Activity Answer Date Recorded Physical Activity 0 12/23/2023 Food Insecurity Answer Date Recorded Food 0 04/28/2024 Transportation Needs Answer Date Record ed Transportation 0 12/23/2023 Housing Stability Answer Date Recorded Housing 0 12/23/2023 Safety and Environment Answer Date Delfino rded Safety 0 12/23/2023 Utilities Answer Date Recorded Utilities 0 12/23/2023 Employment Answer Date Recorded Stress 0 04/18/2024 Comments Unknown Sex and Gender Information Value Date Recorded Sex Assigned at Not on file Legal Sex Female 7:31 AM PDT Gender Identity Not on file Sexual Orientation Not on file Last Filed Vital Signs Vital Sign Reading Time Taken Comments Blood Pressure 134/86 09/15/2024 10:29 AM EST Pulse 74 09/15/2024 10:29 AM EST Temperature - - Respiratory Rate - - Oxygen Saturation - - Inhaled Oxygen Concentration - - Weight - - Height - - Body Mass Index - - Plan of Treatment Upcoming Encounters Date Type Department Care Team (Late st Contact Info) Description 11/04/2024 2:30 PM EDT Office Visit [facility] [address] [place] [phone] Avani Davinwinston, DDS [address] [place] [address] Health Maintenance Due Date Last Done Comments Dental Prophy 1958 Diabetes Screening 1958 Hepatitis C Screening 1958 Lipid Screening 1958 Medicare Annual Wellness Visit 02/03/1976 Imm-DTaP/Tdap/Td (1 - Tdap) 1977 Breast Cancer Screening (Mammogram) 1998 CT Colonography 2003 Colonoscopy 2003 Colorectal Cancer Screening 2003 FIT/gFOBT 2003 Fecal DNA 2003 Flexible Sigmoidoscopy 2003 Imm-Pneumococcal 65+ (1 of 1 - PCV) 02/03/2008 Imm-Zoster, Recombinant (1 of 2) 02/03/2008 Bone Density Screening 2023 Falls Prevention 2023 [id number] (1 - season) 2024 Imm-Influenza (#1) 2024 Alcohol and Drug Screen 08/03/2024 Depression Annual Screen 08/03/2024 Tobacco Screening 05/02/2025 05/02/2024 Dental BW 05/04/2025 05/02/2024 Dental Examination 05/04/2025 05/02/2024 Dental Perio Charting 05/04/2025 05/02/2024 Hypertension Screening (#1) 09/15/2025 Dental FMX/Pano 05/04/2029 05/02/2024 Procedures Procedure Name Priority Date/Time Associated Diagnosis Comments 14 EXTRACTION ERUPTED TOOTH OR EXPOSED ROOT Routine 09/15/2024 11:00 AM EST Extruded tooth INTRAORAL - COMP SERIES OF RADIOGRAPHIC IMAGES Routine 05/02/2024 1:40 PM EDT Encounter for dental examination COMP ORAL EVALUATION - NEW/ESTABLISHED PATIENT Routine 05/02/2024 1:40 PM EDT Encounter for dental examination from Last 3 Months or Most Recently Relevant to Health Maintenance Insurance [facility] - [facility]ENT[facility]
== END 2024-10-19 15:09 | disposition home or self-care (01) ==
LOC: HO.MAMMO 15:08
PROVIDERS: PCP Internal Medicine; Visit Provider Internal Medicine
DX: Z12.31 Encounter for screening mammogram for malignant neoplasm of breast (principal)
CPT/HCPCS: 77063; 77067

== ENCOUNTER → 2024-10-19 15:45 | Outpatient (BNV) | payer OTHER, SELFPAY | PROVIDERS: PCP Internal Medicine; Visit Provider Internal Medicine | DX: Z12.31 Encounter for screening mammogram for malignant neoplasm of breast (principal) | CPT/HCPCS: 77063; 77067 ==

== ENCOUNTER 2024-11-25 07:59 | Outpatient (REF) | payer OTHER, SELFPAY ==
--- OUTSIDE RECORDS SUMMARY | 2024-11-25 08:02 | XMS_ITS | Clinical Summary ---
Author Organization [facility] Address [address] [place] [address] Care Team Providers Care Crown Assembly Machine Set Up Mechanic Name Role Phone Unavailable Primary Care Provider [...] Description 09/15/2024 11:00 AM EST Office Visit [facility] [address] [place] [phone] Brennan Varma DDS Extruded tooth (Primary Dx) [...] Care Team (Late st Contact Info) Description 12/28/2024 11:20 AM EDT Office Visit [facility] [address] [place] [phone] Avani Davinwinston, DDS [address] [place] [address] Health Maintenance Due Date Last Done Comments [...] Bone Density Screening 2023 Falls Prevention 2023 [id number] (1 - season) 2024 Imm-Influenza (#1) 2024 [...] Most Recently Relevant to Health Maintenance Insurance [facility] - [facility]ENTAL
[2024-11-25 08:41] LABS: MANUAL DIFF FLAG NO
[2024-11-25 09:09] LABS: Basophils Percent Auto 0.5 % (0-2); Eosinophils Absolute Auto 0.2 X10*3/uL (0.0-0.4); Eosinophils Percent Auto 3.4 % (0-4); Hemoglobin 11.7 g/dl (12.0-16.0); Imm Gran Abs Auto 0.01 X10*3/uL (0.00-0.03); Imm Gran Pct Auto 0.2 % (0.0-0.4); Immature Retic Fraction 10.6 % (3.0-15.9); Lymphocytes Absolute Auto 2.9 X10*3/uL (1.2-4.9); Lymphocytes Percent Auto 44.7 % (20-40); Mean Corpuscular HGB Conc 34.4 g/dl (31.0-35.0); Mean Corpuscular Hemoglobin 30.2 pg (27.0-33.0); Mean Corpuscular Volume 87.6 fL (80.0-98.0); Mean Platelet Volume 10.3 fL (9.4-12.3); Monocytes Absolute Auto 0.4 X10*3/uL (0.1-1.2); Monocytes Percent Auto 5.8 % (2-11); Neutrophils Absolute Auto 2.9 x10*3/uL (2.0-8.3); Neutrophils Percent Auto 45.4 % (45-73); Platelet Count 230 X10*3/uL (160-400); Red Blood Count 3.88 X10*6/uL (4.20-5.50); Red Cell Distribution Width 12.1 % (11.0-16.0); Retic HGB Equivalent 33.4 pg (30.0-35.0); Reticulocyte Percent 1.5 % (0.5-1.8); Reticulocytes Absolute 0.056 X10*6/uL (0.026-0.095); White Blood Count 6.4 X10*3/uL (4.8-10.8)
[2024-11-25 09:28] LABS: Estimated Average Glucose 117 mg/dL; Hemoglobin A1C 121.3567 umol/L; Hemoglobin A1c % 5.7 % (<6.0); Total Hemoglobin (HGBA1C) 3090.9099 umol/L
[2024-11-25 09:52] LABS: Appearance Urine Cloudy; Color Urine Yellow; Glucose Urine UA Negative (Negative); Leukocyte Esterase Urine Negative (Negative); Nitrite Urine Negative (Negative); PH 5.5 (5.0-9.0); Urine Blood Negative (Negative); Urine Ketones Trace mg/dL (Negative); Urine Protein Negative (Neg-Trace)
[2024-11-25 09:57] LABS: Alanine Aminotransferase 17 U/L (0-31); Albumin Level 4.1 g/dL (3.5-5.0); Alkaline Phosphatase 80 U/L (39-117); Anion Gap 10 (12-20); Aspartate Amino Transferase 22 U/L (5-31); Bilirubin Total 0.4 mg/dL (0.0-1.0); Blood Urea Nitrogen 16 mg/dL (9-16); Calcium 9.5 mg/dL (8.4-10.2); Carbon Dioxide 27 mmol/L (22-29); Chloride 107 mmol/L (96-108); Cholesterol 201 mg/dL (<200); Estimated Glomerular Filt Rate > 60; Glucose Random 96 mg/dL (60-115); HDL Cholesterol 71 mg/dL (>40); Iron 73 mcg/dL (30-160); LDL Cholesterol Calculated 99 mg/dL (<100); Percent Iron Saturation 28 % (15-50); Sodium 140 mmol/L (135-145); Total Iron Binding Capacity 263 mcg/dL (228-428); Total Protein 7.6 g/dL (6.5-8.0); Triglycerides 156 mg/dL (<150); Unsaturated Iron Binding 190 ug/dL
[2024-11-25 10:17] LABS: Ferritin 74 ng/mL (10-250); Free T4 (Free Thyroxine) 1.02 ng/dL (0.71-1.85); Thyroid Stimulating Hormone 0.87 uIU/mL (0.32-4.0); Vitamin D 25-OH Total 40.3 ng/mL (>30)
[2024-11-25 10:19] LABS: Folate 12.6 ng/mL (> or = 4.0); Vitamin B12 972 pg/mL (200-900)
== END 2024-11-25 08:00 | disposition home or self-care (01) ==
LOC: HO.LAB 07:59
PROVIDERS: PCP Internal Medicine; Visit Provider Internal Medicine
DX: I10 Essential (primary) hypertension (principal); E78.00 Pure hypercholesterolemia, unspecified; R30.0 Dysuria
CPT/HCPCS: 36415; 80053; 80061; 81003; 82306; 82607; 82728; 82746; 83036; 83540; 84439; 84443; 85025; 85045

== ENCOUNTER 2024-12-01 12:56 | Outpatient (AMB) | payer OTHER, SELFPAY ==
--- NOTE | 2024-12-01 13:00 | A.OFFPC_ITS ---
Vital Signs 12/01/24 13:02 Height 5 ft 6 in Weight 172 lb 4 oz BMI 27.8 BP 122/76 Blood Pressure Location Lt brachial Position Sitting Pulse 70 Pulse Source Pulse Oximeter Temp 97.1 F Temp Source Temporal Artery Scan Pulse Oximetry (%) 99 Oxygen Delivery Method Room Air Intake Visit Reasons: Annual Exam Project Designer Required: Yes Project Designer Language: Herpetologist Name: Pt refused daughter interpret Accompanied by: Self / Same As Patient Allergies No Known Drug Allergies Allergy (Unknown, Verified 12/01/24 13:01) none ENVIRONMENTAL Allergy (Unknown, Uncoded 12/01/24 13:01) ASTHMA Medication List - Last Reconciled 12/01/24 by Hilda Burroughs MD albuterol sulfate 90 mcg/actuation 2 inhalations PO Q6H PRN blood pressure monitor (Blood Pressure Kit) As directed cetirizine 10 mg PO DAILY PRN clonazepam (Klonopin) 1 mg PO DAILY dicyclomine 20 mg PO QID fluticasone propion-salmeterol 250-50 mcg/dose (Advair Diskus) 1 inh inhalation BID lansoprazole 30 mg PO DAILY lisinopril 10 mg PO DAILY montelukast (Singulair) 10 mg PO BEDTIME simvastatin 20 mg PO BEDTIME 30 days sucralfate TAKE 30ML BY MOUTH EVERY DAY AT NOON (BULK) trazodone 100 mg PO BEDTIME PRN Tobacco use date assessed: 12/01/24 Fall risk assessment: No Falls in past year Last assessed Fall Risk: 12/01/24 Dental Screening Dental Screen Date: 12/01/24 Did you have a dental visit in the last 12 months?: Yes Did you have a dental problem in the last 6 months where you did not have access to dental care?: No Was dental information given to patient?: Patient has dentist HPI Annual Exam HPI Details lost [facility] Medical History (Updated 12/01/24 @ 14:15 by Hilda Burroughs MD) Annual physical exam Gastric ulcer Esophagitis Irritable bowel syndrome Dysphagia Cough Pre-op examination Overweight (BMI 25.0-29.9) Shingles Annual physical exam Neck pain Blood sugar increased Epigastric pain Colon cancer screening Annual physical exam CVA (cerebral vascular accident) Carpal tunnel syndrome Alcohol abuse Vitamin D deficiency COPD (chronic obstructive pulmonary disease) Cocaine abuse GERD (gastroesophageal reflux disease) Anemia Surgical History H/O colonoscopy History of esophagogastroduodenoscopy (EGD) Status post dilatation and curettage History of total abdominal hysterectomy and bilateral salpingo-oophorectomy Family History Father Heart attack Mother Colon cancer Paternal Grandfather No problems noted. Brother Colon cancer Heart attack Other FHx: mental illness Substance abuse Social History (Updated 12/01/24 @ 14:03 by Hilda Burroughs MD) Housing: Apartment Alcohol intake: current Alcohol intake frequency: a few times a month Alcohol type: beer Comment: stopped lqzzdad20/2023- 2 days on weekend 6 drinks Patient Tobacco Use Status: Former Tobacco user Tobacco use type: Cigarette e-Cigarette/Vaping Use: Never Used Second Hand Smoke Exposure: No service: No Current occupational status: unemployed Cognitive needs: No Hearing needs: No Vision needs: Yes Questionnaire PHQ-9 Over the last 2 weeks, how often have you been bothered by any of the following problems? 1. Little interest or pleasure in doing things: not at all 2. Feeling down, depressed, or hopeless: not at all 3. Trouble falling or staying asleep, or sleeping too much: not at all 4. Feeling tired or having little energy: several days 5. Poor appetite or overeating: several days 6. Feeling bad about yourself - or that you are a failure or have let yourself or your family down: not at all 7. Trouble concentrating on things, such as reading the newspaper or watching television: not at all 8. Moving or speaking so slowly that other people could have noticed. Or the opposite - being so fidgety or restless that you have been moving around a lot more than usual: not at all 9. Thoughts that you would be better off or of hurting yourself in some way: not at all Total score: 2 Depression Screening Interpretation: Negative Depression Screening Done: Yes 69459 - PHQ-9 Billing: Yes Source: Developed by Drs. Joseph Bach, Candace Rogers, Kristofer Naqvi and colleagues, with an educational steven from [employer]. Thrive Questionnaire Date Thrive assessed: 12/01/24 I am a: Patient What is your living situation today?: I have a steady place to live Within the past 12 months, did the food you bought not last and you didn't have the money to get more?: Never true Within the past 12 months, did you worry whether your food would run out before you got money to buy more?: Never true Do you have trouble paying for medicines?: No Do you have trouble getting transportation to medical appointments?: No Do you have trouble paying your heating and electricity bill?: No Do you have trouble taking care of your child, family member or friend?: No Do you have trouble with day-to-day activities such as bathing, preparing meals, shopping, managing finances, etc.?: No Are you currently unemployed and looking for a job?: Yes Are you interested in more education?: No Please select the resources that you would like help with: None Currently or been in a relationship where the following occur: No concerns reported THRIVE Score: 0 AUDIT C Alcohol Use Questionnaire (AUDIT-C) 1. How often do you have a drink containing alcohol?: Never 3. How often do you have six or more drinks on one occasion?: Never Total Score: 0 MARIA EUGENIA-7 AMB Questionnaire MARIA EUGENIA-7 Date MARIA EUGENIA - 7 assessed: 12/01/24 Feeling nervous, anxious, or on edge: 0 = Not at all Not being able to stop or control worryin = Not at all Worrying too much about different things: 0 = Not at all Trouble relaxin = Not at all Being so restless that it is hard to sit still: 0 = Not at all Becoming easily annoyed or irritable: 0 = Not at all Feeling afraid as if something awful might happen: 0 = Not at all Total MARIA EUGENIA-7 score (0-4 normal; 5-9 mild; 10-14 moderate; 15-21 severe): 0 Source: Developed by Drs. Joseph Bach, Candace Rogers, Kristofer Naqvi and colleagues, with an educational steven from [employer]. MARIA EUGENIA-7 Assessment Billing MARIA EUGENIA-7 Assessment Tool: MARIA EUGENIA-7 Assessment 04011 Physical exam (Primary Care) Vital Signs: Last Vital Signs Temp 97.1 F 12/01/24 13:02 Pulse 70 12/01/24 13:02 BP 122/76 05/01/25 13:02 Pulse Ox 99 12/01/24 13:02 Oxygen Delivery Method Room Air 12/01/24 13:02 Care Plan Goal for BP management: impacted cerumen bilateral , declined rectal BMI result Body Mass Index 27.8 Tobacco/Smoking Status: Tobacco use Status Tobacco use date assessed 12/01/24 12/01/24 13:46 Patient Tobacco Use Status Former Tobacco user 12/01/24 14:03 Tobacco use type Cigarette 12/01/24 14:03 e-Cigarette/Vaping Use Never Used 12/01/24 14:03 PHQ-9: PHQ-9 Score PHQ-9: Total score 2 12/01/24 14:01 Depression Screening Interpretation: Negative Thrive Assessment: Date of Thrive Assessment Date Thrive assessed 12/01/24 12/01/24 13:02 Currently or been in a relationship where the following occur: No concerns reported Const General: alert and awake HENMT Head: Yes normocephalic Ears: external ears normal Face and sinus: Yes normal facial exam Mouth: moist mucous membranes Throat: Yes tonsils normal Eyes Conjunctivae: conjunctivae normal Pupils: Equal, round and reactive pupils present and Pupil accommodation reflex normal Direct Ophthalmoscopy: normal light reflex Neck Neck: No lymphadenopathy Thyroid: Thyroid normal Chest Chest palpation & inspection: normal inspection of the chest Resp Effort & Inspection: normal respiratory effort and no audible wheezes Auscultation: clear to auscultation bilaterally, no crackles, no wheezes and lung sounds not diminished Cardio Rate: regular rate Rhythm: regular rhythm Peripheral pulses: radial pulses present and dorsalis pedis present GI Palpation (GI): no masses Auscultation: normal bowel sounds and normoactive bowel sounds Rectal Exam - Female: deferred Skin General skin exam: no rashes or lesions noted Rashes: no rashes Neuro General: deep tendon reflexes 2+ bilaterally Cranial nerves: Yes Equal, round and reactive pupils present, Yes Midline tongue present and Yes Ability to bilaterally elevate shoulders present Cognition (Neuro): normal cognition Gait exam (Neuro): Normal gait present Motor exam (neuro): 5/5 motor strength present throughout Deep tendon reflexes (DTR's): Right brachioradialis reflex intensity grade: 2+, Left brachioradialis reflex intensity grade: 2+, Right patellar reflex intensity grade: 2+ and Left patellar reflex intensity grade: 2+ Extrem General: No edema Coding Level of Care Code Est Pt Prev Care >65y(83041) Diagnoses Annual physical exam Z00.00 Campbell's esophagus determined by biopsy K22.70 Impaired fasting blood sugar R73.01 Asthma J45.909 Overweight (BMI 25.0-29.9) E66.3 Primary hypertension I10 Hypertension type: primary hypertension Generalized anxiety disorder F41.1 Hypercholesterolemia E78.00 Hearing difficulty H91.90 Impacted cerumen of both ears H61.23 Additional Codes MARIA EUGENIA-7 Assessment Billing - MARIA EUGENIA-7 Assessment Tool: MARIA EUGENIA-7 Assessment 50501 ([id number]) PHQ-9 - 63869 - PHQ-9 Billing: Yes ([id number]) Assessment & Plan Assessment & Plan (1) Annual physical exam: Code(s): Z00.00 - Encounter for general adult medical examination without abnormal findings Category: Medical (2) Campbell's esophagus determined by biopsy: Code(s): K22.70 - Campbell's esophagus without dysplasia Category: Medical (3) Impaired fasting blood sugar: Code(s): R73.01 - Impaired fasting glucose Category: Medical (4) Asthma: Comment: PFT 2022 Code(s): J45.909 - Unspecified asthma, uncomplicated Category: Medical (5) Overweight (BMI 25.0-29.9): Code(s): E66.3 - Overweight Category: Medical (6) Hypertension: Code(s): I10 - Essential (primary) hypertension Category: Medical Qualifiers: Hypertension type: primary hypertension Qualified Code(s): I10 - Essential (primary) hypertension (7) Generalized anxiety disorder: Comment: [facility] Code(s): F41.1 - Generalized anxiety disorder Category: Medical (8) Hypercholesterolemia: Code(s): E78.00 - Pure hypercholesterolemia, unspecified Category: Medical (9) Hearing difficulty: Code(s): H91.90 - Unspecified hearing loss, unspecified ear Category: Medical (10) Impacted cerumen of both ears: Code(s): H61.23 - Impacted cerumen, bilateral Category: Medical Plan History of Present Illness The patient is a 64-year-old female presenting with a routine physical examination and management of COPD. She reports reliance on an albuterol inhaler for episodes of shortness of breath occurring predominantly in the mornings and nights and uses Advair as a maintenance inhaler. Despite these treatments, she continues to experience frequent episodes of dyspnea indicating potential inadequacy of the regimen that needs reassessment. She follows up with gastroenterology for GERD and Campbell's Esophagus, including regular monitoring through endoscopies with the most recent EGD performed in May 2024. She also has a history of a gastric ulcer with this being a continual monitoring parameter. The patient is being treated for hypercholesterolemia and achieving a reasonable level of control. Concerning her mental and emotional health, she is under treatment for recurrent major depressive disorder and generalized anxiety disorder. Her management includes medications such as Klonopin prescribed by her psychiatrist. Dietary supplements relevant to her condition include B12, vitamin D, and folic acid, with no present deficiency suggested from prior lab results. An impaired glucose tolerance state persists but shows slight improvement with recent hematologic assessments. Alcohol consumption remains a concern due to potential for liver damage given the weekend frequency and volume, highlighting a need for moderation as part of a comprehensive care plan. Polysubstance abuse is addressed as a resolved issue, but remains a part of her health history. Health Maintenance - Up-to-date with tetanus and pneumonia vaccines. - Mammogram last completed in October 2024. - Bone density screening performed in October 2023. - Last colonoscopy recorded in December 2020. - Encouragement to receive shingles vaccine, reportedly completed, although details require confirmation. Social History - Alcohol consumption regularly on weekends, with discussion on moderation due to potential liver impact. - Denies tobacco use and substance abuse currently. - Prior polysubstance abuse resolved. - No recreational drug involvement. Review of Systems - Respiratory: Reports shortness of breath in the mornings and nights. - Gastrointestinal: Reports history of gastric ulcer and Campbell's Esophagus. Denies nausea or vomiting. - Neurological: Denies any recent seizures but mentions passing out at times. - Psychiatric: Reports history of anxiety and depression. Physical Exam General: Cooperative, healthy appearing, comfortable, no acute distress and well developed Orientation: Patient oriented x3 Limitations: No limitations Head: Normal to inspection Ears: Hearing grossly normal bilaterally, but has a lot of ear wax that needs cleaning Nose: Normal external nose present Face and sinus: Normal facial exam Eyes: Appearance normal, both eyes and all related structures; last eye exam was two years ago, no problems reported Neck: Normal visual inspection and Yes full ROM Respiratory: Normal respiratory effort and able to speak in complete sentences. Clear to auscultation bilaterally Cardiovascular: Regular rate and rhythm. Normal S1 and S2 GI: Normal to inspection. Soft to palpation and nontender Skin: No rashes or lesions noted Neuro: Patient oriented x3 Extremities: Normal to inspection Results - Labs: Mild anemia (hemoglobin 11.7), normal platelet count and leukocytes, electrolytes normal. - Renal function tests normal. - Hemoglobin A1c at 5.7 indicating glucose tolerance. Plan The COPD treatment regimen is modified from Advair to Trelegy inhaler to augment therapeutic efficacy and manage shortness of breath episodes. Prescription approval is anticipated. Ongoing management in GERD, Campbell's Esophagus, and history of gastric ulcer remains coordinated with gastroenterology specialists. Control of hypercholesterolemia, hypertension, and impaired glucose tolerance is to continue as per current medications, ensuring optimized physiologic status. Psychiatric stability is maintained with prescribed medication, while nutritional sufficiency remains pivotal in addressing anemia. The patient is encouraged to moderate alcohol consumption as a precautionary measure for liver health mitigation. Patient was informed and verbally consented to the use of an ambient scribe for clinic note documentation during this visit. Discussion Notes I discussed with the patient the need for changing the inhaler regimen to Trelegy, emphasizing the benefit of improved management of COPD symptoms and reducing reliance on rescue inhaler usage. Risks associated with not managing shortness of breath were highlighted, as were potential insurance hurdles for medication approval. I further discussed the importance of regular gastroenterological evaluations, given her GERD and Campbell's Esophagus. We confirmed relevant vaccinations were in place and explored the need for ongoing screenings. Addressing her lifestyle, there was a significant focus on controlling alcohol intake to protect liver function and prevent cumulative adverse effects. Consensus for ongoing management of psychiatric and chronic conditions was verified, with her understanding of the intervention implications. Patient Instructions - Begin using Trelegy inhaler as prescribed, once daily. - Continue to monitor for shortness of breath; use albuterol for acute episodes if needed until Trelegy takes full effect. - Follow-up with gastroenterology as scheduled for GERD and Campbell's Esophagus. - Maintain current cholesterol management and blood pressure control measures. - Moderate alcohol consumption, especially on weekends. - Report any new or worsening symptoms promptly for reevaluation. - Ensure vaccinations, including shingles shot, are up to date, coordinating with pharmacies as necessary. Medications: New fqcejqzpoct-ztdhcoipo-omchkuuz 200-62.5-25 mcg (Trelegy Ellipta) 1 inh inhalation DAILY 60 ea 2RF J43.9 - Emphysema, unspecified Discontinued fluticasone propion-salmeterol 250-50 mcg/dose (Advair Diskus) Discontinued Reason: Patient no longer taking 1 inh inhalation BID 60 ea 12RF J44.9 - Chronic obstructive pulmonary disease, unspecified
[2024-12-01 13:02] VITALS: BP 122/76; PULSE 70; TEMP 36.2; O2SAT 99; BMI 27.8
--- OUTSIDE RECORDS SUMMARY | 2024-12-01 15:25 | XMS_ITS | Clinical Summary ---
Author Organization [facility] Address [address] [place] [address] Care Team Providers Care Dyehouse Worker Name Role Phone Unavailable Primary Care Provider [...] 09/15/2024 11:00 AM EST Office Visit [facility] [address] [place] [phone] Brennan Varma DDS Extruded tooth (Primary Dx) [...] 12/28/2024 11:20 AM EDT Office Visit [facility] [address] [place] [phone] Avani Davinwinston, DDS [address] [place] [address] Health Maintenance Due Date Last Done Comments [...] Bone Density Screening 2023 Falls Prevention 2023 [id number] (1 - season) 2024 Imm-Influenza (#1) 2024 [...] Most Recently Relevant to Health Maintenance Insurance [facility] - DENTAL
== END 2024-12-01 14:20 | disposition home or self-care (01) ==
LOC: HO.HMCH 12:57
PROVIDERS: PCP Internal Medicine; Visit Provider Internal Medicine
DX: Z00.00 Encounter for general adult medical examination without abnormal findings (principal); K22.70 Barrett's esophagus without dysplasia; R73.01 Impaired fasting glucose; J45.909 Unspecified asthma, uncomplicated; E66.3 Overweight; I10 Essential (primary) hypertension; F41.1 Generalized anxiety disorder; E78.00 Pure hypercholesterolemia, unspecified; H91.93 Unspecified hearing loss, bilateral; H61.23 Impacted cerumen, bilateral

== ENCOUNTER → 2024-12-01 12:56 | Outpatient (BNVA) | payer OTHER, SELFPAY | PROVIDERS: PCP Internal Medicine; Visit Provider Internal Medicine | DX: Z00.00 Encounter for general adult medical examination without abnormal findings (principal); J45.909 Unspecified asthma, uncomplicated; K22.70 Barrett's esophagus without dysplasia; R73.01 Impaired fasting glucose; E66.3 Overweight; I10 Essential (primary) hypertension; F41.1 Generalized anxiety disorder; E78.00 Pure hypercholesterolemia, unspecified; H61.23 Impacted cerumen, bilateral | CPT/HCPCS: 96127; 99397 ==

== ENCOUNTER 2024-12-23 14:23 | Outpatient (AMB) | payer OTHER, SELFPAY ==
--- OUTSIDE RECORDS SUMMARY | 2024-12-23 14:26 | XMS_ITS | Clinical Summary ---
Author Organization [facility] Address [address] [place] [address] Care Team Providers Care Color Technician Name Role Phone Unavailable Primary Care Provider [...] medications Active Problems No known active problems Social History Tobacco Use Types Packs/Day Years [...] Upcoming Encounters Date Type Department Care Team ([facility] st Contact Info) Description 12/28/2024 11:20 AM EDT Office Visit [facility] [address] [place] [phone] Brennan Varma, DDS [address] [place] [address] Health Maintenance Due Date Last Done Comments [...] Bone Density Screening 2023 Falls Prevention 2023 [id number] ( season) 2024 Imm-Influenza (#1) 2024 Alcohol and Drug Screen 08/03/2024 Depression Annual Screen 08/03/2024 Tobacco Screening 05/02/2025 05/02/2024 Dental BW 05/04/2025 05/02/2024 Dental Examination 05/04/2025 05/02/2024 Dental Perio Charting 05/04/2025 05/02/2024 Hypertension Screening (#1) 09/15/2025 Dental FMX/Pano 05/04/2029 05/02/2024 Procedures Procedure Name Priority Date/Time Associated Diagnosis Comments INTRAORAL - COMP SERIES OF RADIOGRAPHIC IMAGES Routine 05/02/2024 1:40 PM EDT Encounter for dental examination COMP ORAL EVALUATION - NEW/ESTABLISHED PATIENT Routine 05/02/2024 1:40 PM EDT Encounter for dental examination from Last 3 Months or Most Recently Relevant to Health Maintenance Insurance [facility]
--- NOTE | 2024-12-23 14:28 | A.OFFPC_ITS ---
Vital Signs 12/23/24 14:39 Height 5 ft 6 in Weight 173 lb 6 oz BMI 28.0 BP 132/80 Blood Pressure Location Lt brachial Position Sitting Pulse 82 Pulse Source Pulse Oximeter Temp 97.1 F Temp Source Temporal Artery Scan Pulse Oximetry (%) 97 Oxygen Delivery Method Room Air Intake Visit Reasons: ear irrigation Intake Note: Patient is here to follow up on Ear irrigation. 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 Tube Fitter: Not Required per policy Accompanied by: Self / Same As Patient Allergies No Known Drug Allergies Allergy (Unknown, Verified 12/23/24 15:17) none ENVIRONMENTAL Allergy (Unknown, Uncoded 12/23/24 15:17) ASTHMA Medication List - Last Reconciled 12/23/24 by Vandana Moore PA-C albuterol sulfate 90 mcg/actuation 2 inhalations PO Q6H PRN blood pressure monitor (Blood Pressure Kit) As directed cetirizine 10 mg PO DAILY PRN clonazepam (Klonopin) 1 mg PO DAILY dicyclomine 20 mg PO QID [id number] 200-62.5-25 mcg (Trelegy Ellipta) 1 inh inhalation DAILY lansoprazole 30 mg PO DAILY lisinopril 10 mg PO DAILY montelukast (Singulair) 10 mg PO BEDTIME simvastatin 20 mg PO BEDTIME 30 days sucralfate TAKE 30ML BY MOUTH EVERY DAY AT NOON (BULK) trazodone 100 mg PO BEDTIME PRN Tobacco use date assessed: 12/23/24 Fall risk assessment: No Falls in past year Last assessed Fall Risk: 12/23/24 Dental Screening Dental Screen Date: 12/01/24 HPI ear irrigation HPI Details 64 year old female coming to the office for ear cleaning. [facility] Medical History (Updated 12/01/24 @ 14:15 by Hilda Burroughs MD) Annual physical exam Gastric ulcer Esophagitis Irritable bowel syndrome Dysphagia Cough Pre-op examination Overweight (BMI 25.0-29.9) Shingles Annual physical exam Neck pain Blood sugar increased Epigastric pain Colon cancer screening Annual physical exam CVA (cerebral vascular accident) Carpal tunnel syndrome Alcohol abuse Vitamin D deficiency COPD (chronic obstructive pulmonary disease) Cocaine abuse GERD (gastroesophageal reflux disease) Anemia Surgical History H/O colonoscopy History of esophagogastroduodenoscopy (EGD) Status post dilatation and curettage History of total abdominal hysterectomy and bilateral salpingo-oophorectomy Family History Father Heart attack Mother Colon cancer Paternal Grandfather No problems noted. Brother Colon cancer Heart attack Other FHx: mental illness Substance abuse Social History Housing: Apartment Alcohol intake: current Alcohol intake frequency: a few times a month Alcohol type: beer Comment: stopped lebcpfm18/2023- 2 days on weekend 6 drinks Patient Tobacco Use Status: Former Tobacco user Tobacco use type: Cigarette e-Cigarette/Vaping Use: Never Used Second Hand Smoke Exposure: Yes service: No Current occupational status: unemployed Cognitive needs: No Hearing needs: No Vision needs: Yes Questionnaire Thrive Questionnaire Date Thrive assessed: 12/01/24 I am a: Patient What is your living situation today?: I have a steady place to live Within the past 12 months, did the food you bought not last and you didn't have the money to get more?: Never true Within the past 12 months, did you worry whether your food would run out before you got money to buy more?: Never true Do you have trouble paying for medicines?: No Do you have trouble getting transportation to medical appointments?: No Do you have trouble paying your heating and electricity bill?: No Do you have trouble taking care of your child, family member or friend?: No Do you have trouble with day-to-day activities such as bathing, preparing meals, shopping, managing finances, etc.?: No Are you currently unemployed and looking for a job?: Yes Are you interested in more education?: No Please select the resources that you would like help with: None Currently or been in a relationship where the following occur: No concerns reported THRIVE Score: 0 MARIA EUGENIA-7 AMB Questionnaire MARIA EUGENIA-7 Date MARIA EUGENIA - 7 assessed: 12/01/24 Source: Developed by Drs. Joseph Bach, Candace Rogers, Kristofer Naqvi and colleagues, with an educational steven from [employer] Review of Systems ENT Details: ear clogged feeling and decreased hearing Physical exam (Primary Care) Vital Signs: Last Vital Signs Temp 97.1 F 12/23/24 14:39 Pulse 82 12/23/24 14:39 BP 132/80 12/23/24 14:39 Pulse Ox 97 12/23/24 14:39 Oxygen Delivery Method Room Air 12/23/24 14:39 BMI result Body Mass Index 28.0 Tobacco/Smoking Status: Tobacco use Status Tobacco use date assessed 12/23/24 12/23/24 14:47 Patient Tobacco Use Status Former Tobacco user 12/23/24 14:29 Tobacco use type Cigarette 12/23/24 14:29 e-Cigarette/Vaping Use Never Used 12/23/24 14:29 Thrive Assessment: Date of Thrive Assessment Date Thrive assessed 12/01/24 12/23/24 14:29 Currently or been in a relationship where the following occur: No concerns reported Const General: cooperative, healthy appearing, comfortable and no acute distress Orientation/consciousness: patient oriented x3 HENMT Head: Yes normocephalic Ears: hearing grossly normal bilaterally and Abnormal EAC present excessive cerumen bilateral General nose exam: Normal external nose present Eyes General: appearance normal, both eyes and all related structures Conjunctivae: conjunctivae normal Neck Neck: Yes full ROM and Yes no lymphadenopathy Resp Effort & Inspection: normal respiratory effort Cardio Rate: regular rate Skin General skin exam: no rashes or lesions noted Neuro General: patient oriented x3 Gait exam (Neuro): Normal gait present Extrem General: Yes normal to inspection, Yes full ROM and No edema Psych Affect: normal affect Attitude: cooperative Insight: Good insight present (Psych) Judgement: Good judgement present (Psych) Office Procedures Cerumen Removal From which ear canal was the cerumen removed: bilateral Removal: cerumen loop/spoon Notes: patient tolerated procedure well, no complications and ear canal clear [id number] Wax Removal by Spoon/Curette Coding Level of Care Code Procedure Only Diagnoses Impacted cerumen of both ears H61.23 CPT Codes Office Procedure - CPT: 45735-Tbz Wax Removal by Spoon/Curette ([id number]) Assessment & Plan Assessment & Plan (1) Impacted cerumen of both ears: Code(s): H61.23 - Impacted cerumen, bilateral Category: Medical Plan: Bilateral ears were cleaned using lighted curette. Patient tolerated the procedure well ear canals were atraumatic. TMs were visualized as intact with well aerated middle ear spaces without perforation or retraction. Patient left without issue. follow up prn. Plan This note was constructed using voice recognition software. While every effort has been made to ensure accuracy and brewmaster, still areas may have been included sometimes these areas may affect the content or meeting of the given symptoms. Total time spent caring for the patient today was 20 minutes. This includes time spent before the visit reviewing the chart, time spent during the visit, and time spent after the visit and documentation.
[2024-12-23 14:39] VITALS: BP 132/80; PULSE 82; TEMP 36.2; O2SAT 97; BMI 28.0
== END 2024-12-23 15:25 | disposition home or self-care (01) ==
LOC: HO.HMCH 14:23
PROVIDERS: PCP Internal Medicine
DX: H61.23 Impacted cerumen, bilateral (principal)

== ENCOUNTER → 2024-12-23 14:23 | Outpatient (BNVA) | payer OTHER, SELFPAY | PROVIDERS: PCP Internal Medicine | DX: H61.23 Impacted cerumen, bilateral (principal) | CPT/HCPCS: 69210; 99212 ==

== ENCOUNTER 2024-12-27 11:13 | Outpatient (AMB) | payer OTHER, SELFPAY ==
--- NOTE | 2024-12-27 11:17 | A.OFFVIS_ITS ---
Vital Signs 12/27/24 11:18 Height 5 ft 6 in Weight 169 lb 12.095 oz BMI 27.4 BP 111/59 L Blood Pressure Location Lt brachial Position Sitting Pulse 73 Intake Visit Reasons: Celiac, Diarrhea, Allergy Testing Intake Note: Eliza presents in the office as a follow up for an allergy testing, Celiac, and diarrhea. CC: She states that she is just here for the results. 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 Laryngeal penetration is seen up to level the vocal cords. No subglottic or tracheal aspiration was identified. 2. Mild cricopharyngeal achalasia. 3. Granular appearance of the mid and distal esophageal mucosa that likely represents reflux esophagitis. 4. Mildly disorganized esophageal peristalsis. 5. Small type I hiatal hernia. 6. Significant gastroesophageal reflux. 7. Multiple tiny foci of contrast pooling in the fundus and body the stomach that may represent small superficial aphthous ulcers. Recommend correlation with EGD. 8. Possible mild thickening of the duodenal and proximal jejunal folds that could represent mild proximal enteritis. This could be artifactual, or conversely if real represent infectious or inflammatory enteritis, including malabsorption syndromes. Code(s): R13.10 - Dysphagia, unspecified Category: Medical (4) GERD (gastroesophageal reflux disease): Code(s): K21.9 - Gastro-esophageal reflux disease without esophagitis Category: Medical Plan MALIAN #DON'T HAVE DTR TRANSLATE NEXT TIME...Barb [employer] She still had intermittent diarrhea that varies day to day. I notice she had a marginally elevated TTGA, and since the increase of carafate is not working I think we need to more fully consider food allergies. RAST and repeat TTGA. She also continues on her lansoprazole and dicyclomine. ROV 3 weeks. Orders: Orders Rast Allergen 06/14/24 K58.0 - Irritable bowel syndrome with diarrhea Transglutaminase IgA 06/14/24 K58.0 - Irritable bowel syndrome with diarrhea Transglutaminase Ab IgG 06/14/24 K58.0 - Irritable bowel syndrome with diarrhea C Reactive Protein 06/14/24 K58.0 - Irritable bowel syndrome with diarrhea 8 LABS Laboratory Tests 06/14/24 10:31 C-Reactive Protein 0.39 Tiss Transglutamin IgG 3.3 Tiss Transglutamin IgA <1.0 RAST PANEL SHOWS NO SIGNIFICANT FOOD ALLERGIES TODAYS VISIT [facility] #[id number] She continues on her lansoprazole and dicyclomine. Her stooling has varies from CIC to diarrhea. With this pattern, I recommend a fiber supplement to treat IBS- M. We review the labs and she does NOT appear to have Celiac or any food allrgies - lab cut off have changed so the prior that I though was a mild elevation are actually not. ROV 6 mos. [facility] Medical History (Updated 12/27/24 @ 13:25 by DOMENIC Kilpatrick) Impacted cerumen of both ears Diarrhea Annual physical exam Gastric ulcer Esophagitis Irritable bowel syndrome Dysphagia Cough Pre-op examination Overweight (BMI 25.0-29.9) Shingles Annual physical exam Neck pain Blood sugar increased Epigastric pain Colon cancer screening Annual physical exam CVA (cerebral vascular accident) Carpal tunnel syndrome Alcohol abuse Vitamin D deficiency COPD (chronic obstructive pulmonary disease) Cocaine abuse GERD (gastroesophageal reflux disease) Anemia Surgical History H/O colonoscopy History of esophagogastroduodenoscopy (EGD) Status post dilatation and curettage History of total abdominal hysterectomy and bilateral salpingo-oophorectomy Family History Father Heart attack Mother Colon cancer Paternal Grandfather No problems noted. Brother Colon cancer Heart attack Other FHx: mental illness Substance abuse Social History Housing: Apartment Alcohol intake: current Alcohol intake frequency: a few times a month Alcohol type: beer Comment: stopped sryxrnj13/2023- 2 days on weekend 6 drinks Patient Tobacco Use Status: Former Tobacco user Tobacco use type: Cigarette e-Cigarette/Vaping Use: Never Used Second Hand Smoke Exposure: Yes service: No Current occupational status: unemployed Cognitive needs: No Hearing needs: No Vision needs: Yes Review of Systems Const Denies fatigue, Denies fever(s), Denies night sweats, Denies poor appetite and Denies weight loss ENT Reports Normal hearing present, Denies dental pain, Denies dysphagia, Denies hearing loss, Denies mouth pain, Denies odynophagia, Denies throat swelling, Denies tongue swelling and Reports other (Dentition adequate) Card Reports no additional complaints Resp Reports no additional complaints GI Details: Denies abdominal pain, Denies melena, Denies bloating, Denies hematochezia, Reports constipation, Reports GI cramping, Denies dysphagia, Denies excessive flatus, Denies early satiety, Denies heartburn, Reports diarrhea, Denies nausea, Denies odynophagia, Denies vomiting and Denies hematemesis Skin/Breast Denies pruritus, Denies lesions, Denies rash and Denies jaundice Neuro Reports Normal hearing present and Denies Abnormal speech present Endo Denies fatigue Aller/Immun Denies throat swelling and Denies tongue swelling Physical Exam Vital Signs: Last Vital Signs Pulse 73 12/27/24 11:18 BP 111/59 L 12/27/24 11:18 BMI result Body Mass Index 27.4 Const General: cooperative, no acute distress, well developed and well groomed Nutritional Appearance: average body habitus and well nourished Orientation/consciousness: oriented to person, oriented to place and oriented to time Limitations: language barrier HEENT Head: Yes normocephalic and Yes atraumatic Eyes General: appearance normal, both eyes and all related structures Pupils: Equal, round and reactive pupils present Neck Neck: Yes normal visual inspection and Yes no lymphadenopathy Thyroid: Thyroid normal Resp Effort & Inspection: normal respiratory effort and able to speak in complete sentences Auscultation: clear to auscultation bilaterally Cardio Rate: regular rate Rhythm: regular rhythm Heart sounds: Normal, physiologic split S2 sound present Peripheral pulses: radial pulses present and posterior tibial pulses present GI Inspection: No distended and No Abdominal panniculus present Palpation (GI): Soft to palpation, nontender, no guarding, not rigid and No hepatosplenomegaly present Percussion: Yes normal to percussion Auscultation: normal bowel sounds Rectal Exam - Female: deferred Skin General skin exam: no rashes or lesions noted, turgor normal, skin not dry, no jaundice, No spider nevi and no striae Rashes: no rashes Nails: normal Neuro General: oriented to person, oriented to place and oriented to time Cranial nerves: Yes Equal, round and reactive pupils present and Yes Normal hearing present Speech: No Abnormal speech present Extrem General: Yes normal to inspection, No clubbing, No cyanosis and No edema Psych Appearance: grossly normal and well kempt Mental Status: mental status grossly normal Speech and movement: Normal speech and movement present Affect: normal affect Attitude: cooperative Thought process: Normal thought process present and not confabulating Thought content: Normal thought content present Insight: Limited insight present (Psych) Judgement: Limited judgement present (Psych) Assessment & Plan Assessment & Plan (1) Irritable bowel syndrome with diarrhea: Comment: Seems to change from this to IBS-M Code(s): K58.0 - Irritable bowel syndrome with diarrhea Category: Medical (2) GERD (gastroesophageal reflux disease): Code(s): K21.9 - Gastro-esophageal reflux disease without esophagitis Category: Medical Plan [facility] #[id number] She continues on her lansoprazole and dicyclomine. Her stooling has varies from CIC to diarrhea. With this pattern, I recommend a fiber supplement to treat IBS- M. We review the labs and she does NOT appear to have Celiac or any food allrgies - lab cut off have changed so the prior that I though was a mild elevation are actually not. ROV 6 mos. Coding Level of Care Code Est Pt Level 3 (25570) Diagnoses Irritable bowel syndrome with diarrhea K58.0 GERD (gastroesophageal reflux disease) K21.9
[2024-12-27 11:18] VITALS: BP 111/59; PULSE 73; BMI 27.4
--- OUTSIDE RECORDS SUMMARY | 2024-12-27 12:02 | XMS_ITS | Clinical Summary ---
Author Organization [facility] Address [address] [place] [address] Care Team Providers Care Bakery Demonstrator Name Role Phone Unavailable Primary Care Provider [...] Upcoming Encounters Date Type Department Care Team ([facility] st Contact Info) Description 12/28/2024 11:20 AM EDT Office Visit [facility] [address] [place] [id number] Brennan Varma, DDS [address] [place] [address] Health Maintenance Due Date Last Done Comments [...] Bone Density Screening 2023 Falls Prevention 2023 [id number] ( season) 2024 Imm-Influenza (#1) 2024 Alcohol [...] Most Recently Relevant to Health Maintenance Insurance [facility]
== END 2024-12-27 11:39 | disposition home or self-care (01) ==
LOC: HO.HGI 11:14
PROVIDERS: PCP Internal Medicine; Visit Provider Nurse Practitioner
DX: K58.0 Irritable bowel syndrome with diarrhea (principal); K21.9 Gastro-esophageal reflux disease without esophagitis
CPT/HCPCS: 99213

== ENCOUNTER → 2024-12-27 11:13 | Outpatient (BNVA) | payer OTHER, SELFPAY | PROVIDERS: PCP Internal Medicine; Visit Provider Nurse Practitioner | DX: K58.0 Irritable bowel syndrome with diarrhea (principal); K21.9 Gastro-esophageal reflux disease without esophagitis; K22.70 Barrett's esophagus without dysplasia; R13.10 Dysphagia, unspecified | CPT/HCPCS: 99212 ==

== ENCOUNTER 2025-03-31 10:22 | Outpatient (AMB) | payer OTHER, SELFPAY ==
--- NOTE | 2025-03-31 10:28 | MHC.PC.OV ---
Vital Signs 03/31/25 10:29 Height 5 ft 6 in Weight 176 lb 8 oz BMI 28.5 BP 122/72 Blood Pressure Location Lt brachial Position Sitting Pulse 73 Pulse Source Pulse Oximeter Temp 97.1 F Temp Source Temporal Artery Scan Pulse Oximetry (%) 97 Oxygen Delivery Method Room Air Intake Visit Reasons: 3 month f/u Accompanied by: Significant Other Allergies lisinopril Allergy (Intermediate, Unverified 03/31/25 11:09) throat swelling No Known Drug Allergies Allergy (Unknown, Verified 03/31/25 10:31) none ENVIRONMENTAL Allergy (Unknown, Uncoded 03/31/25 10:31) ASTHMA Medication List - Last Reconciled 03/31/25 by Hilda Burroughs MD albuterol sulfate 90 mcg/actuation 2 inhalations PO Q6H PRN blood pressure monitor (Blood Pressure Kit) As directed cetirizine 10 mg PO DAILY PRN clonazepam (Klonopin) 1 mg PO DAILY dicyclomine 20 mg PO QID whzxagxehxa-qcrxrtebx-rvarjjiv 200-62.5-25 mcg (Trelegy Ellipta) 1 inh inhalation DAILY lansoprazole 30 mg PO DAILY montelukast (Singulair) 10 mg PO BEDTIME simvastatin 20 mg PO BEDTIME 30 days sucralfate TAKE 30ML BY MOUTH EVERY DAY AT NOON (BULK) trazodone 100 mg PO BEDTIME PRN Tobacco use date assessed: 03/31/25 Fall risk assessment: No Falls in past year Last assessed Fall Risk: 03/31/25 Dental Screening Dental Screen Date: 03/31/25 Did you have a dental visit in the last 12 months?: Yes Did you have a dental problem in the last 6 months where you did not have access to dental care?: No Was dental information given to patient?: Patient has dentist COUNTS INCLUDE 234 BEDS AT [facility] Medical History Impacted cerumen of both ears Diarrhea Annual physical exam Gastric ulcer Esophagitis Irritable bowel syndrome Dysphagia Cough Pre-op examination Overweight (BMI 25.0-29.9) Shingles Annual physical exam Neck pain Blood sugar increased Epigastric pain Colon cancer screening Annual physical exam CVA (cerebral vascular accident) Carpal tunnel syndrome Alcohol abuse Vitamin D deficiency COPD (chronic obstructive pulmonary disease) Cocaine abuse GERD (gastroesophageal reflux disease) Anemia Surgical History H/O colonoscopy History of esophagogastroduodenoscopy (EGD) Status post dilatation and curettage History of total abdominal hysterectomy and bilateral salpingo-oophorectomy Family History Father Heart attack Mother Colon cancer Paternal Grandfather No problems noted. Brother Colon cancer Heart attack Other FHx: mental illness Substance abuse Social History Housing: Apartment Alcohol intake: current Alcohol intake frequency: a few times a month Alcohol type: beer Comment: stopped vudirxf09/2023- 2 days on weekend 6 drinks Patient Tobacco Use Status: Former Tobacco user Tobacco use type: Cigarette e-Cigarette/Vaping Use: Never Used Second Hand Smoke Exposure: Yes service: No Current occupational status: unemployed Cognitive needs: No Hearing needs: No Vision needs: Yes Questionnaire PHQ-9 Over the last 2 weeks, how often have you been bothered by any of the following problems? 1. Little interest or pleasure in doing things: not at all 2. Feeling down, depressed, or hopeless: not at all 3. Trouble falling or staying asleep, or sleeping too much: not at all 4. Feeling tired or having little energy: several days 5. Poor appetite or overeating: several days 6. Feeling bad about yourself - or that you are a failure or have let yourself or your family down: not at all 7. Trouble concentrating on things, such as reading the newspaper or watching television: not at all 8. Moving or speaking so slowly that other people could have noticed. Or the opposite - being so fidgety or restless that you have been moving around a lot more than usual: not at all 9. Thoughts that you would be better off or of hurting yourself in some way: not at all Total score: 2 Depression Screening Interpretation: Negative Depression Screening Done: Yes Source: Developed by Drs. Joseph Bach, Candace Rogers, Kristofer Naqvi and colleagues, with an educational steven from [employer]. Thrive Questionnaire Date Thrive assessed: 12/01/24 I am a: Patient What is your living situation today?: I have a steady place to live Within the past 12 months, did the food you bought not last and you didn't have the money to get more?: Never true Within the past 12 months, did you worry whether your food would run out before you got money to buy more?: Never true Do you have trouble paying for medicines?: No Do you have trouble getting transportation to medical appointments?: No Do you have trouble paying your heating and electricity bill?: No Do you have trouble taking care of your child, family member or friend?: No Do you have trouble with day-to-day activities such as bathing, preparing meals, shopping, managing finances, etc.?: No Are you currently unemployed and looking for a job?: Yes Are you interested in more education?: No Please select the resources that you would like help with: None Currently or been in a relationship where the following occur: No concerns reported THRIVE Score: 0 AUDIT C Alcohol Use Questionnaire (AUDIT-C) 1. How often do you have a drink containing alcohol?: Monthly or less 2. How many drinks containing alcohol do you have on a typical day when you are drinking?: 1 or 2 3. How often do you have six or more drinks on one occasion?: Never Total Score: 1 MARIA EUGENIA-7 AMB Questionnaire MARIA EUGENIA-7 Date MARIA EUGENIA - 7 assessed: 12/01/24 Feeling nervous, anxious, or on edge: 0 = Not at all Not being able to stop or control worryin = Not at all Worrying too much about different things: 0 = Not at all Trouble relaxin = Not at all Being so restless that it is hard to sit still: 0 = Not at all Becoming easily annoyed or irritable: 0 = Not at all Feeling afraid as if something awful might happen: 0 = Not at all Total MARIA EUGENIA-7 score (0-4 normal; 5-9 mild; 10-14 moderate; 15-21 severe): 0 Source: Developed by Drs. Joseph Bach, Candace Rogers, Kristofer Naqvi and colleagues, with an educational steven from [employer]. Physical exam (Primary Care) Vital Signs: Last Vital Signs Temp 97.1 F 03/31/25 10:29 Pulse 73 03/31/25 10:29 BP 122/72 03/31/25 10:29 Pulse Ox 97 03/31/25 10:29 Oxygen Delivery Method Room Air 03/31/25 10:29 BMI result Body Mass Index 28.5 Tobacco/Smoking Status: Tobacco use Status Tobacco use date assessed 03/31/25 03/31/25 10:33 Patient Tobacco Use Status Former Tobacco user 03/31/25 10:33 Tobacco use type Cigarette 03/31/25 10:33 e-Cigarette/Vaping Use Never Used 03/31/25 10:33 PHQ-9: PHQ-9 Score PHQ-9: Total score 2 03/31/25 11:03 Depression Screening Interpretation: Negative Thrive Assessment: Date of Thrive Assessment Date Thrive assessed 12/01/24 03/31/25 10:33 Currently or been in a relationship where the following occur: No concerns reported Const General: alert; No acute distress Eyes Conjunctivae: conjunctivae normal Resp Auscultation: clear to auscultation bilaterally Cardio Rate: regular rate Rhythm: regular rhythm GI Inspection: Yes normal to inspection Extrem General: Yes normal to inspection and No edema Coding Level of Care Code Est Pt Level 4 (25165) Complex EM visit Add On G2211 Diagnoses Overweight E66.3 Impaired fasting blood sugar R73.01 Primary hypertension I10 Hypertension type: primary hypertension Hypercholesterolemia E78.00 Generalized anxiety disorder F41.1 Campbell's esophagus determined by biopsy K22.70 Irritable bowel syndrome with diarrhea K58.0 Pulmonary emphysema, unspecified emphysema type J43.9 COPD type: emphysema Emphysema type: unspecified Assessment & Plan Assessment & Plan (1) Overweight: Code(s): E66.3 - Overweight Category: Medical Plan: Diet and exercise (2) Impaired fasting blood sugar: Code(s): R73.01 - Impaired fasting glucose Category: Medical Plan: Decrease the amount of carbohydrate intake, pasta, bread, rice and potatoes are all sugar and that is aside from all the sweet stuff, remember that fruits are good but they are Sweet also. (3) Hypertension: Code(s): I10 - Essential (primary) hypertension Category: Medical Qualifiers: Hypertension type: primary hypertension Qualified Code(s): I10 - Essential (primary) hypertension Plan: Continue with blood pressure medication. Decrease salt intake and exercise patient on lisinopril 10 mg once a day (4) Hypercholesterolemia: Code(s): E78.00 - Pure hypercholesterolemia, unspecified Category: Medical Plan: Avoid fried foods, chicken skin, eggs, butter margarine, pastries and meat. Be it pork or beef they have a lot of cholesterol simvastatin 20 mg at bedtime November 2024 last blood work (5) Generalized anxiety disorder: Comment: [facility] Counseling Code(s): F41.1 - Generalized anxiety disorder Category: Medical Plan: Continue with counseling and therapy (6) Campbell's esophagus determined by biopsy: Code(s): K22.70 - Campbell's esophagus without dysplasia Category: Medical Plan: Avoid the foods that causes that usually spicy foods, tomato products, juices, coffee, soda and foods that your sensitive to. After eating do not lie down, allow 3-4 hours before in lie down. And keep the head of bed above 30 degrees to avoid the acid from going up. (7) Irritable bowel syndrome with diarrhea: Comment: Seems to change from this to IBS-M Code(s): K58.0 - Irritable bowel syndrome with diarrhea Category: Medical Plan: Patient follows up with Gastroenterology (8) COPD (chronic obstructive pulmonary disease): Code(s): J44.9 - Chronic obstructive pulmonary disease, unspecified Category: Medical Qualifiers: COPD type: emphysema Emphysema type: unspecified Qualified Code(s): J43.9 - Emphysema, unspecified Plan: On Singulair Trelegy and albuterol Plan History of Present Illness The patient is a 65-year-old female presenting for a follow-up visit. The patient has a history of Gastroesophageal Reflux Disease (GERD) and Campbell's Esophagus, for which she is on lansoprazole and dicyclomine. She follows up with gastroenterology and had her last endoscopy in May 2024. The patient has Chronic Obstructive Pulmonary Disease (COPD) and asthma, managed with Singulair, Trelegy, and albuterol. She experiences dyspnea and uses albuterol as needed, approximately once or twice a week. The patient has a history of hypercholesterolemia, with recent labs showing an LDL of 156 mg/dL and triglycerides of 156 mg/dL. She is on simvastatin 20 mg at bedtime for cholesterol management. The patient has hypertension, previously managed with lisinopril, which was discontinued due to adverse reactions including throat swelling and coughing. Her blood pressure will be monitored, and dietary modifications have been advised. The patient has a history of depression and continues with counseling and therapy. The patient has irritable bowel syndrome and chronic idiopathic constipation, for which fiber supplements have been recommended. She denies having celiac disease. Recent blood work in November 2024 showed mild anemia with hemoglobin at 11.7 g/dL and hematocrit at 34%. Electrolytes, renal function, blood sugar, and liver function tests were normal. Health Maintenance - Mammogram and bone density are up to date as of October 2023. - Last colonoscopy was performed in December 2020. - Advised to reduce soda and juice intake to manage sugar levels and prevent heartburn. - Recommended to drink six to eight glasses of water daily and eat more vegetables. - Encouraged to engage in regular physical activity. Social History - Patient consumes soda and sweet juices, which may affect sugar levels and contribute to heartburn. - Advised to consume more natural foods and reduce intake of processed foods. Review of Systems - Respiratory: Reports dyspnea, uses albuterol as needed. - Gastrointestinal: Reports constipation, denies celiac disease. - Cardiovascular: Reports throat swelling and coughing related to lisinopril use. Physical Exam Results - Labs: Mild anemia with hemoglobin at 11.7 g/dL and hematocrit at 34%. - Labs: LDL cholesterol at 156 mg/dL, triglycerides at 156 mg/dL. - Labs: Normal electrolytes, renal function, blood sugar, and liver function tests. Plan Patient was informed and verbally consented to the use of an ambient scribe for clinic note documentation during this visit. 1. Gastroesophageal Reflux Disease (Gerd) The patient will continue on lansoprazole and dicyclomine for GERD management and follow up with gastroenterology. Dietary modifications include reducing intake of soda and spicy foods to manage symptoms. 2. Chronic Obstructive Pulmonary Disease (Copd) The patient will continue using Singulair, Trelegy, and albuterol as needed for COPD management. Albuterol use is limited to instances of dyspnea, approximately once or twice a week. 3. Hypercholesterolemia The patient will continue simvastatin 20 mg at bedtime for cholesterol management. Dietary modifications to reduce sugar intake are advised to manage cholesterol levels. 4. Hypertension Lisinopril has been discontinued due to adverse reactions, and blood pressure will be monitored closely. Dietary modifications include reducing sodium intake and increasing vegetable consumption. 5. Depression The patient will continue with counseling and therapy for depression management. 6. Irritable Bowel Syndrome Fiber supplements are recommended for managing chronic idiopathic constipation associated with irritable bowel syndrome. Discussion Notes During the visit, we discussed the management of GERD with lansoprazole and dicyclomine, emphasizing the importance of dietary modifications to reduce symptoms. We reviewed the COPD management plan, including the use of Singulair, Trelegy, and albuterol, and the need to monitor albuterol use. The patient was advised to continue simvastatin for hypercholesterolemia and to make dietary changes to manage cholesterol levels. Due to adverse reactions, lisinopril was discontinued, and we will monitor blood pressure closely while advising dietary sodium reduction. The patient will continue counseling for depression, and fiber supplements were recommended for irritable bowel syndrome management. Patient Instructions - Continue taking lansoprazole and dicyclomine as prescribed for GERD. - Use albuterol only when experiencing shortness of breath. - Take simvastatin 20 mg at bedtime for cholesterol management. - Monitor blood pressure regularly and reduce sodium intake. - Continue with counseling and therapy for depression. - Take fiber supplements as advised for constipation. - Drink six to eight glasses of water daily and eat more vegetables. - Engage in regular physical activity. Medications: Discontinued lisinopril Discontinued Reason: Doctor's Order 10 mg PO DAILY 90 tabs 5RF I10 - Essential (primary) hypertension
[2025-03-31 10:29] VITALS: BP 122/72; PULSE 73; TEMP 36.2; O2SAT 97; BMI 28.5
--- OUTSIDE RECORDS SUMMARY | 2025-03-31 11:04 | XMS_ITS | Clinical Summary ---
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 Name Role Phone Unavailable Primary Care Provider [...] Mass Index - - Plan of Treatment Health Maintenance Due Date Last Done Comments Dental Prophy 1958 Diabetes Screening 1960 Hepatitis C Screening 1958 Lipid Screening 1960 Medicare Annual Wellness Visit 02/03/1976 Imm-DTaP/Tdap/Td (1 - Tdap) 1977 Breast Cancer Screening (Mammogram) 1998 CT Colonography 2003 Colonoscopy 2003 Colorectal Cancer Screening 2003 FIT/gFOBT 2003 Fecal DNA 2003 Flexible Sigmoidoscopy 2003 Imm-Pneumococcal 50+ (1 of 1 - PCV) 02/03/2008 Imm-Zoster, Recombinant (1 of 2) 02/03/2008 Bone Density Screening 2023 Falls Prevention 2023 [id number] ( - 2023- season) 2024 Alcohol and Drug Screen 08/03/2024 Depression Annual Screen 08/03/2024 Imm-Influenza (#1) 2025 Tobacco Screening 05/02/2025 05/02/2024 Dental BW 05/04/2025 [...] Most Recently Relevant to Health Maintenance Insurance [facility]
== END 2025-03-31 11:25 | disposition home or self-care (01) ==
LOC: HO.HMCH 10:23
PROVIDERS: PCP Internal Medicine; Visit Provider Internal Medicine
DX: R73.01 Impaired fasting glucose (principal); J43.9 Emphysema, unspecified; I10 Essential (primary) hypertension; E66.3 Overweight; E78.00 Pure hypercholesterolemia, unspecified; F41.1 Generalized anxiety disorder; K22.70 Barrett's esophagus without dysplasia; K58.0 Irritable bowel syndrome with diarrhea

== ENCOUNTER → 2025-03-31 10:22 | Outpatient (BNVA) | payer OTHER, SELFPAY | PROVIDERS: PCP Internal Medicine; Visit Provider Internal Medicine | DX: E66.3 Overweight (principal); R73.01 Impaired fasting glucose; I10 Essential (primary) hypertension; E78.00 Pure hypercholesterolemia, unspecified; F41.1 Generalized anxiety disorder; K22.70 Barrett's esophagus without dysplasia; K58.0 Irritable bowel syndrome with diarrhea; J43.9 Emphysema, unspecified; K21.9 Gastro-esophageal reflux disease without esophagitis; Z68.28 Body mass index [BMI] 28.0-28.9, adult; Z79.899 Other long term (current) drug therapy | CPT/HCPCS: 96127; 99212 ==

== ENCOUNTER 2025-06-28 11:14 | Outpatient (AMB) | payer OTHER, SELFPAY ==
[2025-06-28 11:19] VITALS: BP 121/75; BMI 28.1
--- NOTE | 2025-06-28 11:19 | A.OFFVIS_ITS ---
Vital Signs 06/28/25 11:19 Height 5 ft 6 in Weight 174 lb 2.643 oz BMI 28.1 BP 121/75 Blood Pressure Location Lt brachial Position Sitting Intake Visit Reasons: 6 mo f/u IBS-M , GERD Intake Note: Eliza presents to in office follow up of IBS-M and GERD. CC: Patient reports that about a month ago she was vomiting, with diarrhea, and epigastric pain for a whole week. She now states that she sometimes has constipation and other times diarrhea. Ocular Care Technologist Required: Yes Ocular Care Technologist Language: Clerk Of Works Services: Ocular Care Technologist Offered & Declined Ocular Care Technologist Name: will interpret. Accompanied by: Spouse Allergies lisinopril Allergy (Intermediate, Unverified 03/31/25 11:09) throat swelling No Known Drug Allergies Allergy (Unknown, Verified 03/31/25 10:31) none ENVIRONMENTAL Allergy (Unknown, Uncoded 03/31/25 10:31) ASTHMA HPI HPI 6 mo f/u IBS-M , GERD: Details: Assessment & Plan (1) Irritable bowel syndrome with diarrhea: Comment: Seems to change from this to IBS-M Code(s): K58.0 - Irritable bowel syndrome with diarrhea Category: Medical (2) GERD (gastroesophageal reflux disease): Code(s): K21.9 - Gastro-esophageal reflux disease without esophagitis Category: Medical Plan [place] #[id number] She continues on her lansoprazole, sucralfate and dicyclomine. Her stooling has varies from CIC to diarrhea. With this pattern, I recommend a fiber supplement to treat IBS-M. We review the labs and she does NOT appear to have Celiac or any food allrgies - lab cut off have changed so the prior that I though was a mild elevation are actually not. ROV 6 mos. Today's visit [place] # PFSH Medical History Impacted cerumen of both ears Diarrhea Annual physical exam Gastric ulcer Esophagitis Irritable bowel syndrome Dysphagia Cough Pre-op examination Overweight (BMI 25.0-29.9) Shingles Annual physical exam Neck pain Blood sugar increased Epigastric pain Colon cancer screening Annual physical exam CVA (cerebral vascular accident) Carpal tunnel syndrome Alcohol abuse Vitamin D deficiency COPD (chronic obstructive pulmonary disease) Cocaine abuse GERD (gastroesophageal reflux disease) Anemia Surgical History H/O colonoscopy History of esophagogastroduodenoscopy (EGD) Status post dilatation and curettage History of total abdominal hysterectomy and bilateral salpingo-oophorectomy Family History Father Heart attack Mother Colon cancer Paternal Grandfather No problems noted. Brother Colon cancer Heart attack Other FHx: mental illness Substance abuse Social History (Reviewed 06/28/25 @ 11: by BRAVO Quiroz) Housing: Apartment Alcohol intake: current Alcohol intake frequency: a few times a month Alcohol type: beer Comment: stopped /2023- 2 days on weekend 6 drinks Patient Tobacco Use Status: Former Tobacco user Tobacco use type: Cigarette e-Cigarette/Vaping Use: Never Used Second Hand Smoke Exposure: Yes service: No Current occupational status: unemployed Cognitive needs: No Hearing needs: No Vision needs: Yes Review of Systems Const Denies fatigue, Denies fever(s), Denies night sweats, Denies poor appetite and Denies weight loss Eyes Details: glasses Reports requires corrective lenses ENT Reports Normal hearing present, Denies dental pain, Denies dysphagia, Denies hearing loss, Denies mouth pain, Denies odynophagia, Denies throat swelling, Denies tongue swelling and Reports other (Dentition adequate) Card Reports no additional complaints Resp Reports no additional complaints GI Details: Denies abdominal pain, Denies melena, Denies bloating, Denies hematochezia, Reports constipation, Reports GI cramping, Denies dysphagia, Denies excessive flatus, Denies early satiety, Reports heartburn, Denies diarrhea, Reports loose stools, Denies nausea, Denies odynophagia, Denies vomiting and Denies hematemesis Skin/Breast Denies pruritus, Denies lesions, Denies rash and Denies jaundice Neuro Reports Normal hearing present and Denies Abnormal speech present Endo Denies fatigue Aller/Immun Denies throat swelling and Denies tongue swelling Physical Exam Vital Signs: Last Vital Signs BP 121/75 06/28/25 11:19 BMI result Body Mass Index 28.1 Const General: cooperative, no acute distress, well developed and well groomed Nutritional Appearance: well nourished and overweight Orientation/consciousness: oriented to person, oriented to place and oriented to time Limitations: language barrier HEENT Head: Yes normocephalic and Yes atraumatic Eyes General: appearance normal, both eyes and all related structures Pupils: Equal, round and reactive pupils present Neck Neck: Yes normal visual inspection and Yes no lymphadenopathy Thyroid: Thyroid normal Resp Effort & Inspection: normal respiratory effort and able to speak in complete sentences Auscultation: clear to auscultation bilaterally Cardio Rate: regular rate Rhythm: regular rhythm Heart sounds: Normal, physiologic split S2 sound present Peripheral pulses: radial pulses present and posterior tibial pulses present GI Inspection: No distended, No Abdominal panniculus present and Yes obesity Palpation (GI): Soft to palpation, nontender, no guarding, not rigid and No hepatosplenomegaly present Percussion: Yes normal to percussion Auscultation: normal bowel sounds Rectal Exam - Female: deferred Skin General skin exam: no rashes or lesions noted, turgor normal, skin not dry, no jaundice, No spider nevi and no striae Rashes: no rashes Nails: normal Neuro General: oriented to person, oriented to place and oriented to time Cranial nerves: Yes Equal, round and reactive pupils present and Yes Normal hearing present Speech: No Abnormal speech present Extrem General: Yes normal to inspection, No clubbing, No cyanosis and No edema Psych Appearance: grossly normal and well kempt Mental Status: mental status grossly normal Speech and movement: Normal speech and movement present Affect: normal affect Attitude: cooperative Thought process: Normal thought process present and not confabulating Thought content: Normal thought content present Insight: Limited insight present (Psych) Judgement: Limited judgement present (Psych) Assessment & Plan Assessment & Plan (1) Irritable bowel syndrome with diarrhea: Comment: Seems to change from this to IBS-M Code(s): K58.0 - Irritable bowel syndrome with diarrhea Category: Medical (2) 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 Her stooling has varies from CIC to diarrhea. With this pattern, I recommend a fiber supplement to treat IBS- M. Subjective Patient presents for follow-up of chronic alternating bowel habits with constipation and diarrhea. She did not start a fiber supplement as previously recommended. Reports stools characterized by going 2?3 days without a bowel movement followed by hard stool and then watery stools. Ongoing abdominal pain; dicyclomine (?blue pill?) has been used four times daily for pain control. She experienced nausea and vomiting with liquid sucralfate. Continues lansoprazole for heartburn. History of gastric ulcer, reported as healed. Objective Assessment & Plan Alternating constipation and diarrhea: Chronic pattern with periods of constipation followed by loose/watery stools. Standard management discussed. - Start soluble fiber supplement twice daily (e.g., Benefiber, Metamucil, Citrucel; store-brand acceptable); may mix with juice (e.g., orange juice). - Avoid polyethylene glycol (Miralax) as this is a laxative and not the intended therapy. 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 - Follow up in approximately 10 weeks to assess response. History of gastric ulcer; intolerance to sucralfate: Ulcer reported as healed; liquid sucralfate causing nausea/vomiting. - Discontinue sucralfate. Patient states it causes her some nausea when she takes it anyway and is likely exacerbating the constipation swings of her IBS. Heartburn: Stable on current therapy. - Continue lansoprazole as prescribed. Abdominal pain/visceral spasm: Symptomatic relief with antispasmodic. - Continue dicyclomine four times daily. Medications: Refilled dicyclomine 20 mg PO QID 360 tabs 1RF K58.9 - Irritable bowel syndrome, unspecified lansoprazole 30 mg PO DAILY 30 caps 6RF K21.9 - Gastro-esophageal reflux disease without esophagitis, N28.9 - Disorder of kidney and ureter, unspecified Discontinued sucralfate Discontinued Reason: Doctor's Order TAKE 30ML BY MOUTH EVERY DAY AT NOON (BULK) 414 mL 6RF K20.90 - Esophagitis, unspecified without bleeding, K25.9 - Gastric ulcer, unspecified as acute or chronic, without hemorrhage or perforation Coding Level of Care Code Est Pt Level 3 (91241) Diagnoses Irritable bowel syndrome with diarrhea K58.0 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
== END 2025-06-28 11:53 | disposition home or self-care (01) ==
LOC: HO.HGI 11:15
PROVIDERS: PCP Internal Medicine; Visit Provider Nurse Practitioner
DX: K58.0 Irritable bowel syndrome with diarrhea (principal); K22.70 Barrett's esophagus without dysplasia; K21.9 Gastro-esophageal reflux disease without esophagitis
CPT/HCPCS: 99213

== ENCOUNTER → 2025-06-28 11:14 | Outpatient (BNVA) | payer OTHER, SELFPAY | PROVIDERS: PCP Internal Medicine; Visit Provider Nurse Practitioner | DX: K21.00 Gastro-esophageal reflux disease with esophagitis, without bleeding (principal); K22.70 Barrett's esophagus without dysplasia; K58.0 Irritable bowel syndrome with diarrhea; K25.9 Gastric ulcer, unspecified as acute or chronic, without hemorrhage or perforation; N28.9 Disorder of kidney and ureter, unspecified; Z79.899 Other long term (current) drug therapy | CPT/HCPCS: 99212 ==